=== PATIENT | male | born 1950 | race Caucasian/White ===

== ENCOUNTER 2023-05-14 14:55 | Outpatient (AMB) | payer MEDICARE, SELFPAY ==
--- NOTE | 2023-05-14 15:02 | MHC.OFFVIS ---
Intake Vital Signs 05/14/23 15:05 Height 5 ft 10 in Weight 161 lb 13.109 oz BMI 23.2 BP 128/74 Blood Pressure Location Rt brachial Position Sitting Pulse 91 Intake Visit Reasons: HX of adenomatous colonic polyps Intake Note: Patient presents to in office visit today as a new patient for colonoscopy screening. CC: Last colonoscopy on 07/03/22 at [facility] and he was advised to repeat in 6 months. Patient c/o constipation and rectal bleeding for the last 2 weeks. [employer] Required: No Accompanied by: Self / Same As Patient Allergies rosuvastatin [From Crestor] Allergy (Mild, Verified 05/14/23 15:20) Dizziness sulfacetamide [From Sulfacet-R] Allergy (Mild, Verified 05/14/23 15:20) coma sulfur [From Sulfacet-R] Allergy (Mild, Verified 05/14/23 15:20) coma HPI HX of adenomatous colonic polyps HPI Details 72-year-old male here for preprocedural meeting to discuss a screening colonoscopy in the context of a history of tubular adenoma. He is referred by [place] [facility] primary care. PMX Hypertension Generalized anxiety disorder/panic attacks/depression Insomnia Peripheral neuropathy Lower extremity edema Plantar fasciitis Tubular adenoma -2018 do Restless legs syndrome DJD of the lumbar spine/spondylolisthesis Raynaud's syndrome * THE SURGICAL HISTORY Colonoscopy-07/2022=30mm TVA; 2018 Tonsillectomy * ALLERGIES Sulfa drugs Statins * [employer] LABS: Labs from [facility] from July of 2022 show an unremarkable CBC, and unremarkable renal hepatic panel. The primary care provider did not supplement us with any recent labs. TODAY'S VISIT Upon entering the room the patient is pacing back and forth in agitation, panting, groaning, and seems to be in distress. I ask confuse all right and he says ?no, I have really blood plantar fasciitis and neuropathy and it is really painful right now. ? He also seems to have some element of emotional agitation as he immediately launches into how his son is going to be upset with him because he is in pain tonight, that he recently his and lost his health insurance, that he is losing his primary care doctor, and he is uncertain about his insurance coverage. He also seems to have some psychiatric problems and I note that he is on Seroquel with no diagnosis to explain this and I doubt that it is only for insomnia. It is somewhat difficult to refocus him on the task at hand which is that he needs a repeat colonoscopy due to a very large tubulovillous adenoma removed in July of 2022 at [facility]. 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 He does not like to take more pills saying ?I already have too many pills,? so I will try sending him some MiraLax. He denies any upper stomach problems. He denies any cardiac or respiratory problems. He denies any prior problems with anesthesia or sedation. No ID problems. [facility] Surgical History H/O colonoscopy Family History Maternal Grandmother Throat cancer Social History Patient Tobacco Use Status: Never used Tobacco Use of substances other than those prescribed or required for medical reasons: No Review of Systems Const Denies fatigue, Denies fever(s), Denies night sweats, Denies poor appetite and Denies weight loss ENT Reports Normal hearing present, Denies dental pain, Denies dysphagia, Denies hearing loss, Denies mouth pain, Denies odynophagia, Denies throat swelling, Denies tongue swelling and Reports other (Dentition poor) Card Reports no additional complaints Resp Reports no additional complaints GI Denies abdominal pain, Denies melena, Denies bloating, Denies hematochezia, Reports constipation, Denies GI cramping, Denies dysphagia, Denies excessive flatus, Denies early satiety, Denies heartburn, Denies diarrhea, Denies nausea, Denies odynophagia, Denies vomiting and Denies hematemesis Musc Reports back pain, Reports myalgias, Reports muscle cramps, Reports numbness, Reports radiating pain into limb and Reports tingling Skin/Breast Denies pruritus, Denies lesions, Denies rash and Denies jaundice Neuro Reports Normal hearing present, Denies Abnormal speech present, Reports burning sensations, Reports numbness, Reports restless legs and Reports tingling Psych Reports abnormal sleep pattern and Reports anxiety Endo Denies fatigue Aller/Immun Denies throat swelling and Denies tongue swelling Physical Exam Vital Signs: Last Vital Signs Pulse 91 05/14/23 15:05 BP 128/74 05/14/23 15:05 BMI result Body Mass Index 23.2 Const General: cooperative, no acute distress, well developed and anxious Nutritional Appearance: average body habitus and well nourished Orientation/consciousness: oriented to person, oriented to place and oriented to time Limitations: No language barrier and other limitations (? Psychiatric) HEENT Head: Yes normocephalic and Yes atraumatic Eyes General: appearance normal, both eyes and all related structures Pupils: Equal, round and reactive pupils present Neck Neck: Yes normal visual inspection and Yes no lymphadenopathy Thyroid: Thyroid normal Resp Effort & Inspection: normal respiratory effort and able to speak in complete sentences Auscultation: clear to auscultation bilaterally Cardio Rate: regular rate Rhythm: regular rhythm Heart sounds: Normal, physiologic split S2 sound present Peripheral pulses: radial pulses present and posterior tibial pulses present GI Inspection: No distended and No Abdominal panniculus present Palpation (GI): Soft to palpation, nontender, no guarding, not rigid and No hepatosplenomegaly present Percussion: Yes normal to percussion Auscultation: normal bowel sounds Rectal Exam - Male: Yes deferred Skin General skin exam: no rashes or lesions noted, turgor normal, skin not dry, no jaundice, No spider nevi and no striae Rashes: no rashes Nails: normal Neuro General: oriented to person, oriented to place and oriented to time Cranial nerves: Yes Equal, round and reactive pupils present and Yes Normal hearing present Speech: No Abnormal speech present Extrem General: Yes normal to inspection, No clubbing, No cyanosis and No edema Psych Appearance: disheveled Mental Status: other Speech and movement: Pressured speech present Affect: Anxious affect present Attitude: cooperative Thought process: Circumstantial thought process present, not confabulating, Tangential thought process present and Racing thoughts present Thought content: Normal thought content present Insight: Poor insight present (Psych) Judgement: Poor judgement present (Psych) Assessment & Plan Assessment & Plan (1) Tubulovillous adenoma: Comment: 30MM removed 06/2022 at [facility]!! Code(s): D36.9 - Benign neoplasm, unspecified site (2) Pre-op examination: Code(s): Z01.818 - Encounter for other preprocedural examination Plan Upon entering the room the patient is pacing back and forth in agitation, panting, groaning, and seems to be in distress. I ask confuse all right and he says ?no, I have really blood plantar fasciitis and neuropathy and it is really painful right now. ? He also seems to have some element of emotional agitation as he immediately launches into how his son is going to be upset with him because he is in pain tonight, that he recently his and lost his health insurance, that he is losing his primary care doctor, and he is uncertain about his insurance coverage. He also seems to have some psychiatric problems and I note that he is on Seroquel with no diagnosis to explain this and I doubt that it is only for insomnia. It is somewhat difficult to refocus him on the task at hand which is that he needs a repeat colonoscopy due to a very large tubulovillous adenoma removed in July of 2022 at [facility]. 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 He does not like to take more pills saying ?I already have too many pills,? so I will try sending him some MiraLax. He denies any upper stomach problems. He denies any cardiac or respiratory problems. He denies any prior problems with anesthesia or sedation. No ID problems. Orders: Orders Complete Blood Count Auto Diff Today D36.9 - Benign neoplasm, unspecified site, Z01.818 - Encounter for other preprocedural examination Comprehensive Met. Panel Today D36.9 - Benign neoplasm, unspecified site, Z01.818 - Encounter for other preprocedural examination Colonoscopy - GI Use Only Today D36.9 - Benign neoplasm, unspecified site, Z01.818 - Encounter for other preprocedural examination Medications: New sodium,potassium,mag sulfates 17.5-3.13-1.6 gram (Suprep Bowel Prep Kit) DILUTE; drink full amount early evening before AND next morning at least 2 hr before procedure; follow w 960 mL water PO 354 mL 0RF D36.9 - Benign neoplasm, unspecified site polyethylene glycol 3350 (Miralax) 17 grams PO DAILY 30 days 510 grams 6RF Coding Level of Care Code New Pt Level 3 (28451) Diagnoses Tubulovillous adenoma D36.9 Pre-op examination Z01.818
[2023-05-14 15:05] VITALS: BP 128/74; PULSE 91; BMI 23.2
== END 2023-05-14 16:21 | disposition home or self-care (01) ==
PROVIDERS: PCP Nurse Practitioner Family; Visit Provider Nurse Practitioner
DX: D36.9 Benign neoplasm, unspecified site (principal); Z01.818 Encounter for other preprocedural examination
CPT/HCPCS: 99203

== ENCOUNTER → 2023-05-14 14:55 | Outpatient (BNVA) | payer MEDICARE, SELFPAY | PROVIDERS: PCP Nurse Practitioner Family; Visit Provider Nurse Practitioner | DX: Z01.818 Encounter for other preprocedural examination (principal); D36.9 Benign neoplasm, unspecified site | CPT/HCPCS: 99202 ==

== ENCOUNTER 2023-06-05 17:58 | Emergency (ER) | payer MEDICARE, SELFPAY ==
--- NOTE | ~2023-06-05 | CT_ITS ---
EXAMINATION: CT HEAD WITHOUT CONTRAST CLINICAL INFORMATION: New onset dizziness with hypertension COMPARISON: None available. TECHNIQUE: Contiguous axial imaging was performed from the skull base to vertex without intravenous administration of contrast. This CT examination was performed using dose optimization techniques as appropriate, variously including the following: *Automated exposure control *Adjustment of mA and/or kV according to patient size (this includes techniques or standardized protocols for targeted exams where dose is matched to indication/reason for exam; i.e. extremities or head) *Use of iterative reconstruction technique DLP: 939 mGy-cm FINDINGS: Suboptimal assessment in some regions due to motion artifact. There is no appreciable acute intracranial hemorrhage or territorial infarction. No abnormal mass-effect or midline shift is seen. Chen to white matter differentiation is well preserved. No extra-axial fluid collections are identified. The ventricles are normal in size. Mild volume loss is noted. The osseous structures and soft tissues are normal. Mucosal thickening of the bilateral ethmoid air cells and left sphenoid sinus. The mastoid air cells are well-aerated. CT/CT head/brain wo IV con IMPRESSION: Suboptimal assessment in some regions due to motion artifact. No acute findings identified.
[2023-06-05 18:53] VITALS: BP 170/87; PULSE 77; RESP 18; TEMP 36.3; O2SAT 99; BMI 27.3
--- NOTE | 2023-06-05 18:54 | ED.GENADULT ---
HPI - General Adult General Chief complaint: Dizziness Stated complaint: abd pain ,dizziness Time Seen by Provider: 06/06/23 00:54 History of Present Illness HPI narrative: Patient is 72 years old with history of adenomatous colonic polyp, hypertension, anxiety had colonoscopy last year and a large polyp was removed today he comes for chronic right abdominal pain which is going on for more than 6 months also complaining of sudden onset of vertiginous feeling since 14:30 no chest pain or palpitation no other weakness Related Data Home Medications Medication Instructions Recorded Confirmed gabapentin 300 mg capsule 300 mg PO DAILY 05/14/23 quetiapine 100 mg tablet 100 mg PO BEDTIME 05/14/23 Previous Rx's Medication Instructions Recorded polyethylene glycol 3350 17 17 g PO DAILY 30 days #510 grams 05/14/23 gram/dose oral powder (Miralax) sodium,potassium,mag sulfates 17.5 See Rx Instructions PO .COMPLEX 05/14/23 gram-3.13 gram-1.6 gram oral soln #354 mL (Suprep Bowel Prep Kit) bisacodyl 5 mg tablet,delayed 20 mg (4 x 5 mg) PO ONCE 1 day #4 05/16/23 release (Dulcolax (bisacodyl)) tabs peg 3350-electrolytes 236 240 ml PO Q10M #4,000 mL 05/16/23 gram-22.74 gram-6.74 gram-5.86 gram solution lorazepam 1 mg tablet (Ativan) 1 mg PO DAILY PRN 06/06/23 anxiety/dizziness #14 tabs meclizine 25 mg tablet 25 mg PO TID PRN dizziness #20 tabs 06/06/23 Allergies Allergy/AdvReac Type Severity Reaction Status Date / Time rosuvastatin [From Crestor] Allergy Mild Dizziness Verified 06/05/23 18:57 sulfacetamide Allergy Mild coma Verified 06/05/23 18:57 [From Sulfacet-R] sulfur [From Sulfacet-R] Allergy Mild coma Verified 06/05/23 18:57 Review of Systems Review of Systems: Yes all other systems are reviewed and are negative PMF Past Medical History Surgical History H/O colonoscopy Family History Family History Maternal Grandmother Throat cancer Social History Social History Patient Tobacco Use Status: Never used Tobacco Smoked in Last 30 Days: No Use of substances other than those prescribed or required for medical reasons: No Advance Directives: No Advance Directives Information Provided: Yes Physical Exam ED Vital Signs: Vital Signs - 24 hr 06/05/23 18:53 06/05/23 22:31 06/06/23 01:56 Temperature 97.4 F 98.2 F 98.2 F Pulse Rate 77 82 73 Respiratory Rate 18 18 14 Blood Pressure 170/87 H 183/83 H 151/84 H Pulse Oximetry 99 98 99 Oxygen Delivery Method Room Air Room Air Room Air 06/06/23 02:53 Temperature 97.9 F Pulse Rate 77 Respiratory Rate 14 Blood Pressure 158/75 H Pulse Oximetry 98 Oxygen Delivery Method Room Air BMI result Body Mass Index 27.3 Appearance: Alert. Oriented X3. No acute distress. Eyes: PERRLA, No Nystagmus ENT: Pharynx normal. Oral Mucosa moist Neck: Normal inspection. Neck supple. CVS: Normal heart rate and rhythm. Pulses normal. Respiratory: No respiratory distress. Equal air entry bilateral, no wheezing/rales/rhonchi Abdomen: Soft mild deep tenderness mid abdomen Bowel sounds are present, no mass palpable, no CVA tenderness Skin: Skin warm and dry. Normal skin color. Normal skin turgor. Extremities: No lower extremity edema. No calf tenderness Neuro: Oriented X 3. No motor deficit. No sensory deficit.No cerebellar signs , cranial nerves II-XII intact no tremors Course Course Course Narrative: This is an RME: Additional HPI, ROS, PE not included below will be deferred to primary provider. This is a 62-[id number]-qsq-male, with a hx of anxiety, HTN, anxiety, RSL, DJD, prsenting to the ER with a complaint of RLQ pain, dizziness. He states dark stool several weeks ago. Reports that he has had tightness in his right abdomen often, worsening over the last day. Reports that he is being currently followed by [facility] due to a large polyp that had to be removed and he has a repeat colonoscopy in August. Abdomen is soft, no discrete tenderness. No urinary symptoms. Plan: Labs, further ER evaluation needed. Medications Administered Discontinued Medications Generic Name Dose Route Start Last Admin Trade Name Freq PRN Reason Stop Dose Admin Lorazepam 1 mg 06/06/23 02:34 06/06/23 02:52 Lorazepam 1 Mg Tablet PO 06/06/23 02:35 1 mg ONCE ONE Administration Meclizine HCl 50 mg 06/06/23 01:08 06/06/23 01:52 Meclizine Hcl 25 Mg Tablet PO 06/06/23 01:09 50 mg ONCE ONE Administration Medical Decision Making Medical Decision Making [facility] Narrative: Patient with benign positional vertigo increased anxiety no signs of central nervous system involvement CT scan of the head was done which was negative patient felt better after meclizine discharge patient home patient ambulatory in ER Differential Diagnosis Differential Diagnoses: The differential diagnosis associated with the presentation includes Benign positional vertigo/CVA/anxiety Admission/Observation Consideration of admission/observation: Escalation of care including admission/observation considered Lab Data [facility] Lab Attestation statement: I reviewed the patient's lab results. 06/05/23 19:12 06/05/23 19:12 Labs: Lab Results 06/05/23 06/05/23 Range/Units 19:12 20:24 WBC 11.4 H (4.8-10.8) X10*3/uL RBC 4.85 (4.60-5.80) X10*6/uL Hgb 15.5 (14.0-18.0) g/dl Hct 45.4 (42.0-52.0) % MCV 93.6 (80.0-98.0) fL MCH 32.0 (27.0-33.0) pg MCHC 34.1 (31.0-36.0) g/dl RDW 12.8 (11.0-16.0) % Plt Count 221 (160-400) X10*3/uL MPV 11.1 (9.4-12.4) fL Immature Gran % (Auto) 0.3 (0.0-0.4) % Neut % (Auto) 85.1 H (45-73) % Lymph % (Auto) 8.9 L (20-40) % Slope % (Auto) 4.1 (2-11) % Eos % (Auto) 1.1 (0-4) % Baso % (Auto) 0.5 (0-2) % Lymph # (Auto) 1.0 L (1.2-4.9) X10*3/uL Slope # (Auto) 0.5 (0.1-1.2) X10*3/uL Eos # (Auto) 0.1 (0.0-0.4) X10*3/uL Baso # (Auto) 0.1 (0.0-0.2) X10*3/uL Abs Immat Gran (auto) 0.03 (0.00-0.03) X10*3/uL Absolute Neuts (auto) 9.7 H (2.0-8.3) x10*3/uL Absolute Nucleated RBC 0.000 (0.0-0.012) X10*3/uL Nucleated RBC % (auto) 0.0 (0.0-0.2) /100WBC Sodium 140 (135-145) mmol/L Potassium 3.9 (3.3-5.1) mmol/L Chloride 106 (96-108) mmol/L Carbon Dioxide 27 (22-29) mmol/L Anion Gap 11 L (12-20) BUN 17 H (9-16) mg/dL Creatinine 1.08 (0.5-1.4) mg/dL Estim Creat Clear Calc 60.9 Estimated GFR > 60 Random Glucose 139 H (60-115) mg/dL Calcium 9.5 (8.4-10.2) mg/dL Magnesium 2.2 (1.6-2.6) mg/dL Total Bilirubin 1.0 (0.0-1.0) mg/dL Direct Bilirubin 0.4 (0.0-0.5) mg/dL AST 30 (5-37) U/L ALT 19 (0-40) U/L Alkaline Phosphatase 139 H (39-117) U/L Total Protein 7.0 (6.5-8.0) g/dL Albumin 4.1 (3.5-5.0) g/dL Lipase 16 (8-78) U/L Urine Color Yellow Urine Appearance Clear Urine pH 6.0 (5.0-9.0) Ur Specific [place] 1.015 (1.005-1.025) Urine Protein Negative (Neg-Trace) mg/dL Urine Glucose (UA) Negative (Negative) mg/dL Urine Ketones Negative (Negative) mg/dL Urine Blood Trace (Negative) Urine Nitrite Negative (Negative) Ur Leukocyte Esterase Negative (Negative) Urine RBC 0-2 (0-2) /HPF Urine WBC 0-5 (0-5) /HPF Ur Squamous Epith Cells 0-2 (0-2) /HPF Urine Bacteria None Seen (None Seen) Hyaline Casts 0-2 (0-2) /LPF Independent Interpretation I performed an independent interpretation of an: CT Scan Radiology Impression Discussion of test interpretation with radiology: I have reviewed the radiologist's reading. Discharge Plan Discharge Clinical Impression: Benign paroxysmal positional vertigo, Anxiety Patient Disposition: Home, Self-Care Instructions: Benign Paroxysmal Positional Vertigo (ED), Anxiety (ED) Additional Instructions: Care and cautions as advised Meclizine 1 tablet every 8 hours as needed for severe dizziness Take Ativan 1 mg tablet in a.m. to help in anxiety and dizziness Prescriptions: New lorazepam [Ativan] 1 mg tablet 1 mg PO DAILY PRN (Reason: anxiety/dizziness) Qty: 14 0RF meclizine 25 mg tablet 25 mg PO TID PRN (Reason: dizziness) Qty: 20 0RF No Action bisacodyl [Dulcolax (bisacodyl)] 5 mg tablet,delayed release (DR/EC) 20 mg PO ONCE 1 Days Qty: 4 0RF Rx Instructions: take at noon the day before colonoscopy peg 3350-electrolytes 236-22.74-6.74 -5.86 gram recon soln 240 ml PO Q10M Qty: 4000 0RF Rx Instructions: Refer to prep instructions given/ mailed to you from GI OFFICE. until fecal effluent is clear quetiapine 100 mg tablet 100 mg PO BEDTIME gabapentin 300 mg capsule 300 mg PO DAILY sodium,potassium,mag sulfates [Suprep Bowel Prep Kit] 17.5-3.13-1.6 gram recon soln See Rx Instructions PO .COMPLEX Qty: 354 0RF Rx Instructions: DILUTE; drink full amount early evening before AND next morning at least 2 hr before procedure; follow w 960 mL water PO polyethylene glycol 3350 [Miralax] 17 gram/dose powder 17 g PO DAILY 30 Days Qty: 510 6RF Interventions: ED Discharge Assessment Last Done: 06/06/23 02:57 Discharge Date/Time: 06/06/23 02:57
[2023-06-05 19:15] LABS: MANUAL DIFF FLAG NO
[2023-06-05 19:17] LABS: Basophils Absolute Auto 0.1 X10*3/uL (0.0-0.2); Basophils Percent Auto 0.5 % (0-2); Eosinophils Absolute Auto 0.1 X10*3/uL (0.0-0.4); Eosinophils Percent Auto 1.1 % (0-4); Hematocrit 45.4 % (42.0-52.0); Hemoglobin 15.5 g/dl (14.0-18.0); Imm Gran Abs Auto 0.03 X10*3/uL (0.00-0.03); Imm Gran Pct Auto 0.3 % (0.0-0.4); Lymphocytes Percent Auto 8.9 % (20-40); Mean Corpuscular HGB Conc 34.1 g/dl (31.0-36.0); Mean Corpuscular Volume 93.6 fL (80.0-98.0); Mean Platelet Volume 11.1 fL (9.4-12.4); Monocytes Absolute Auto 0.5 X10*3/uL (0.1-1.2); Monocytes Percent Auto 4.1 % (2-11); Neutrophils Absolute Auto 9.7 x10*3/uL (2.0-8.3); Neutrophils Percent Auto 85.1 % (45-73); Platelet Count 221 X10*3/uL (160-400); Red Blood Count 4.85 X10*6/uL (4.60-5.80); Red Cell Distribution Width 12.8 % (11.0-16.0); White Blood Count 11.4 X10*3/uL (4.8-10.8)
[2023-06-05 20:08] LABS: Alanine Aminotransferase 19 U/L (0-40); Albumin Level 4.1 g/dL (3.5-5.0); Alkaline Phosphatase 139 U/L (39-117); Anion Gap 11 (12-20); Bilirubin Direct 0.4 mg/dL (0.0-0.5); Blood Urea Nitrogen 17 mg/dL (9-16); Calcium 9.5 mg/dL (8.4-10.2); Carbon Dioxide 27 mmol/L (22-29); Chloride 106 mmol/L (96-108); Creatinine Clr Calc Pharmacy 60.9; Estimated Glomerular Filt Rate > 60; Glucose Random 139 mg/dL (60-115); Lipase 16 U/L (8-78); Magnesium 2.2 mg/dL (1.6-2.6); Potassium 3.9 mmol/L (3.3-5.1); Sodium 140 mmol/L (135-145)
[2023-06-05 20:23] LABS: Aspartate Amino Transferase 30 U/L (5-37)
[2023-06-05 20:30] LABS: Appearance Urine Clear; Color Urine Yellow; Glucose Urine UA Negative (Negative); Leukocyte Esterase Urine Negative (Negative); Nitrite Urine Negative (Negative); Specific Gravity - Urine 1.015 (1.005-1.025); UMIC TRIGGER UACC YES; Urine Blood Trace (Negative); Urine Ketones Negative (Negative); Urine Protein Negative (Neg-Trace)
[2023-06-05 20:36] LABS: Bacteria Urine None Seen (None Seen); Hyaline Casts Urine 0-2 /LPF (0-2); RBC Urine 0-2 /HPF (0-2); Squamous Epithelial Cell Urine 0-2 /HPF (0-2); WBC Urine 0-5 /HPF (0-5)
[2023-06-05 22:31] VITALS: BP 183/83; PULSE 82; RESP 18; TEMP 36.8; O2SAT 98
[2023-06-06] MEDS: Meclizine HCl 25 MG TABLET 50 MG PO (01:52)
[2023-06-06 01:56] VITALS: BP 151/84; PULSE 73; RESP 14; TEMP 36.8; O2SAT 99
[2023-06-06] MEDS: LORazepam 1 MG TABLET PO (02:52)
[2023-06-06 02:53] VITALS: BP 158/75; PULSE 77; RESP 14; TEMP 36.6; O2SAT 98
== END 2023-06-06 02:57 | disposition home or self-care (01) ==
PROVIDERS: Physician Assistant Medical; Emergency Provider Internal Medicine; PCP Nurse Practitioner Family
DX: H81.10 Benign paroxysmal vertigo, unspecified ear (principal); F41.9 Anxiety disorder, unspecified; I10 Essential (primary) hypertension; Z79.899 Other long term (current) drug therapy
CPT/HCPCS: 36415; 70450; 80048; 80076; 81001; 83690; 83735; 85025; 99284

== ENCOUNTER 2023-07-26 22:46 | Inpatient (IN) | payer MEDICARE, OTHER, SELFPAY ==
--- NOTE | ~2023-07-26 | XR_ITS ---
EXAMINATION: XR ABDOMEN KUB CLINICAL INDICATION: Constipation COMPARISON: None available. TECHNIQUE: AP view of the abdomen. FINDINGS: The bowel gas pattern is normal with no evidence of ileus or obstruction. Mild to moderate gas and stool is seen in the colon without moderate amount left colon and in the rectum. No bowel obstruction. No unusual soft tissue calcifications are noted. Marked degenerative changes are present in the spine. XR/XR KUB IMPRESSION: Mild to moderate stool burden. No evidence of bowel obstruction.
--- NOTE | 2023-07-26 23:00 | ED.PSYCH ---
HPI - Psych General Stated Complaint: SI Time Seen by Provider: 07/26/23 22:51 Source: EMS Mode of arrival: EMS Limitations: other (Severe anxiety) History of Present Illness HPI Narrative: Patient comes to the emergency room via ambulance and on a Section 12 started by police department. According to EMS and police, the PD received a phone call from the patient's son. Seems that the patient has been extremely anxious, making random phone calls to the family, leaving 5 minute long messages without making any sense. Patient has 2 sons, one son lives in [place] and another one in this area. Patient's son from [place] all his brother to discuss their father. Patient lives by himself. Patient's son who lives locally went to see his father, patient was extremely anxious, not making much sense. An ambulance and PD was called. Patient very anxious, not making much sense. According to the sons, they have noted that the patient has declined mentally over last month. Related Data Home Medications Medication Instructions Recorded Confirmed gabapentin 300 mg capsule 300 mg PO DAILY 05/14/23 quetiapine 100 mg tablet 100 mg PO BEDTIME 05/14/23 Previous Rx's Medication Instructions Recorded polyethylene glycol 3350 17 17 g PO DAILY 30 days #510 grams 05/14/23 gram/dose oral powder (Miralax) sodium,potassium,mag sulfates 17.5 See Rx Instructions PO .COMPLEX 05/14/23 gram-3.13 gram-1.6 gram oral soln #354 mL (Suprep Bowel Prep Kit) bisacodyl 5 mg tablet,delayed 20 mg (4 x 5 mg) PO ONCE 1 day #4 05/16/23 release (Dulcolax (bisacodyl)) tabs peg 3350-electrolytes 236 240 ml PO Q10M #4,000 mL 05/16/23 gram-22.74 gram-6.74 gram-5.86 gram solution lorazepam 1 mg tablet (Ativan) 1 mg PO DAILY PRN 06/06/23 anxiety/dizziness #14 tabs meclizine 25 mg tablet 25 mg PO TID PRN dizziness #20 tabs 06/06/23 Allergies Allergy/AdvReac Type Severity Reaction Status Date / Time rosuvastatin [From Crestor] Allergy Mild Dizziness Verified 06/05/23 18:57 sulfacetamide Allergy Mild coma Verified 06/05/23 18:57 [From Sulfacet-R] sulfur [From Sulfacet-R] Allergy Mild coma Verified 06/05/23 18:57 Review of Systems Review of Systems: Too anxious to give any significant history PMFSH Past Medical History Surgical History H/O colonoscopy Family History Family History Maternal Grandmother Throat cancer Social History Social History Patient Tobacco Use Status: Never used Tobacco Physical Exam Const: Other: Appearance: Alert. Very anxious, not answering questions, yelling that he is concerned about staying in the hospital because we want find out what his blood pressure medications are. Eyes: Pupils equal, round and reactive to light. ENT: Pharynx normal. Neck: Normal inspection. Neck supple. No lymph nodes noted. No crepitus CVS: Normal heart rate and rhythm. Pulses normal. Normal S1 and S2 Respiratory: No respiratory distress. Breath sounds normal. No Wheezing. No rales Abdomen: Soft and nontender. No rigidity. No distention. Skin: Skin warm and dry. Normal skin color. Normal skin turgor. Extremities: No lower extremity edema. No Lacerations. No Rash Neuro: No slurred speech. CN 2 through 12 grossly intact Psych: Chen anxious, sobbing loudly Course Course Course Narrative: -patient is too anxious to give any history. Patient was given the option of taking p.o. medications to help with the anxiety. Patient states that he can not swallow, states that he is agreeable to take an IM medication. Patient will be given IM Benadryl and Ativan. -all of patient's labs pending -care team consult pending Medical Decision Making Differential Diagnosis Differential Diagnoses: The differential diagnosis associated with the presentation includes (Anxiety, dementia, substance abuse) Admission/Observation Consideration of admission/observation: Escalation of care including admission/observation considered (Patient is on a Section 12, waiting for the care team to be evaluated) Discharge Plan Discharge Clinical Impression: Anxiety Prescriptions: No Action bisacodyl [Dulcolax (bisacodyl)] 5 mg tablet,delayed release (DR/EC) 20 mg PO ONCE 1 Days Qty: 4 0RF Rx Instructions: take at noon the day before colonoscopy peg 3350-electrolytes 236-22.74-6.74 -5.86 gram recon soln 240 ml PO Q10M Qty: 4000 0RF Rx Instructions: Refer to prep instructions given/ mailed to you from GI OFFICE. until fecal effluent is clear lorazepam [Ativan] 1 mg tablet 1 mg PO DAILY PRN (Reason: anxiety/dizziness) Qty: 14 0RF meclizine 25 mg tablet 25 mg PO TID PRN (Reason: dizziness) Qty: 20 0RF quetiapine 100 mg tablet 100 mg PO BEDTIME gabapentin 300 mg capsule 300 mg PO DAILY sodium,potassium,mag sulfates [Suprep Bowel Prep Kit] 17.5-3.13-1.6 gram recon soln See Rx Instructions PO .COMPLEX Qty: 354 0RF Rx Instructions: DILUTE; drink full amount early evening before AND next morning at least 2 hr before procedure; follow w 960 mL water PO polyethylene glycol 3350 [Miralax] 17 gram/dose powder 17 g PO DAILY 30 Days Qty: 510 6RF
[2023-07-26 23:05] VITALS: BP 163/92; PULSE 105; RESP 18; O2SAT 98
[2023-07-26] MEDS: diphenhydrAMINE HCL 50 MG/ML VIAL IM (23:05)
[2023-07-26] MEDS: LORazepam 2 MG/ML VIAL IM (23:05)
[2023-07-26 23:16] VITALS: BMI 28.2
--- NOTE | 2023-07-26 23:41 | PC.NURSE ---
Pt is very anxious and tearful. Reports being unable to swallow. Medicated IM as pt is anxious and did not want to take PO medications.
--- NOTE | 2023-07-26 23:43 | PC.NURSE ---
Called received from Jorge Urban who identified himself as pts health care proxy. 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 Jorge reports pts paranoid tendencies have worsen throughout the last 8 months where pt has had multiple hospital stays with [facility] and [facility]. Jorge reports pt was living with a son who has moved out of the home 2 to 3 days ago and pts condition has worsen as pt is now living alone. Jorge reports pts home is disheveled and pt is unable to care for himself regarding ADL's. Jorge can be reached at [phone]
[2023-07-26 23:48] LABS: MANUAL DIFF FLAG NO
[2023-07-26 23:51] LABS: Basophils Absolute Auto 0.1 X10*3/uL (0.0-0.2); Basophils Percent Auto 0.7 % (0-2); Eosinophils Absolute Auto 0.1 X10*3/uL (0.0-0.4); Eosinophils Percent Auto 0.9 % (0-4); Hematocrit 39.9 % (42.0-52.0); Hemoglobin 14.1 g/dl (14.0-18.0); Imm Gran Abs Auto 0.02 X10*3/uL (0.00-0.03); Imm Gran Pct Auto 0.2 % (0.0-0.4); Lymphocytes Percent Auto 17.5 % (20-40); Mean Corpuscular HGB Conc 35.3 g/dl (31.0-36.0); Mean Corpuscular Hemoglobin 32.3 pg (27.0-33.0); Mean Corpuscular Volume 91.3 fL (80.0-98.0); Mean Platelet Volume 11.2 fL (9.4-12.4); Monocytes Absolute Auto 1.2 X10*3/uL (0.1-1.2); Monocytes Percent Auto 10.6 % (2-11); Neutrophils Absolute Auto 7.9 x10*3/uL (2.0-8.3); Neutrophils Percent Auto 70.1 % (45-73); Platelet Count 235 X10*3/uL (160-400); Red Blood Count 4.37 X10*6/uL (4.60-5.80); Red Cell Distribution Width 12.8 % (11.0-16.0); White Blood Count 11.3 X10*3/uL (4.8-10.8)
[2023-07-27] LABS: Ammonia 34 umol/L (13-55)
[2023-07-27 00:11] LABS: Alanine Aminotransferase 39 U/L (0-40); Albumin Level 3.7 g/dL (3.5-5.0); Alkaline Phosphatase 98 U/L (39-117); Anion Gap 16 (12-20); Aspartate Amino Transferase 38 U/L (5-37); Bilirubin Direct 0.5 mg/dL (0.0-0.5); Bilirubin Total 1.2 mg/dL (0.0-1.0); Blood Urea Nitrogen 22 mg/dL (9-16); Calcium 9.1 mg/dL (8.4-10.2); Carbon Dioxide 23 mmol/L (22-29); Chloride 106 mmol/L (96-108); Creatinine Clr Calc Pharmacy 41.2; Estimated Glomerular Filt Rate 43; Ethanol < 10 mg/dL; Glucose Random 105 mg/dL (60-115); Potassium 3.2 mmol/L (3.3-5.1); Sodium 142 mmol/L (135-145); Total Protein 6.3 g/dL (6.5-8.0)
[2023-07-27 00:24] LABS: Acetaminophen LAB < 3 mcg/mL (<30); Salicylate < 5.0 mg/dL (15-30)
[2023-07-27 04:42] LABS: Appearance Urine Clear; Color Urine Dark Yellow; Glucose Urine UA Negative (Negative); Leukocyte Esterase Urine Negative (Negative); Nitrite Urine Negative (Negative); PH 5.5 (5.0-9.0); Specific Gravity - Urine 1.025 (1.005-1.025); UMIC TRIGGER UACC YES; Urine Blood Trace (Negative); Urine Ketones 15 mg/dL (Negative); Urine Protein 30 (1+) mg/dL (Neg-Trace)
--- NOTE | 2023-07-27 04:43 | PC.NURSE ---
Pt up and ambulating to the bathroom. Pt noted to have an unsteady gait requiring 1 assist to the bathroom. Pt denies using any assisting devices for ambulation. Charge nurse made aware.
[2023-07-27 04:50] LABS: Amphetamine Screen Urine Not Detected (Not Detect); Barbiturates, Urine Not Detected (Not Detect); Benzodiazepines Screen Urine Not Detected (Not Detect); Cannabinoid Screen Urine Not Detected (Not Detect); Cocaine Screen Urine Not Detected (Not Detect); Fentanyl, urine Not Detected (Not Detect); Opiate Screen Urine Not Detected (Not Detect); Phencyclidine Screen Urine Not Detected (Not Detect)
[2023-07-27 04:51] LABS: Bacteria Urine None Seen (None Seen); Calcium Oxalate Crystals Urine Present; RBC Urine 0-2 /HPF (0-2); Squamous Epithelial Cell Urine 0-2 /HPF (0-2); WBC Urine 0-5 /HPF (0-5)
--- NOTE | 2023-07-27 07:35 | PC.NURSE ---
PT IS SLEEPING RESP EVEN AND UNLABORED.
[2023-07-27 07:47] VITALS: RESP 16
--- NOTE | 2023-07-27 08:05 | PC.NURSE ---
PT'S SON JONATHAN CAME TO VISIT, BUT THE PT WAS SLEEPING SO HE LEFT STATING HE DOESN'T SLEEP THAT MUCH, SO I WILL LET HIM SLEEP. JUST LET HIM KNOW THAT I WAS HERE . WILL CONTINUE TO MONITOR.
--- NOTE | 2023-07-27 10:09 | PC.NURSE ---
PT CONTINUES TO SLEEP RESP EVEN AND UNLABORED.
--- NOTE | 2023-07-27 10:25 | PC.NURSE ---
CARE TEAM AT BEDSIDE, PT AWARE OF PLAN OF CARE.
[2023-07-27 10:40] VITALS: BP 113/56; PULSE 54; RESP 18; TEMP 36.2; O2SAT 97
--- NOTE | 2023-07-27 10:40 | PC.NURSE ---
PT IS A/O X 4 NO SOB/DESIRAE NOTED SPEAKS IN FULL SENTENCES. PT DENIES ANY PAIN, BUT C/O KIMBERLYN FEET DISC. PT STATES THAT HE HAS NEUROPATHY AND PLANTAR FASCIITIS. PT DENIES ANY SI/HI. PT AWARE OF PLAN OF CARE. WILL CONTINUE TO MONITOR.
[2023-07-27] MEDS: Potassium Chloride Packet 20 MEQ PACKET 40 MEQ PO (10:44)
[2023-07-27] MEDS: Gabapentin 300 MG CAPSULE PO (10:45)
[2023-07-27] MEDS: hydrOXYzine HCL 25 MG TABLET PO ×3 (10:45→22:05)
--- NOTE | 2023-07-27 11:05 | ECG_ITS ---
Test Reason : CHECK PROLONG QT Blood Pressure : / mmHG Vent. Rate : 056 BPM Atrial Rate : 056 BPM P-R Int : 142 ms QRS Dur : 090 ms QT Int : 450 ms P-R-T Axes : 042 -09 035 degrees QTc Int : 434 ms Sinus bradycardia Otherwise normal ECG No previous ECGs available Referred By: Chela Horn Electronically Signed By:VAIBHAV CHRISTENSEN
--- NOTE | 2023-07-27 13:32 | PC.NURSE ---
PT AMB (I) GAIT STEADY WITH 1 ASSIST TO BATHROOM AND BTB. PT DENIES ANY PAIN/DISC.
[2023-07-27] MEDS: cloNIDine HCL 0.2 MG TABLET PO (17:29)
--- NOTE | 2023-07-27 19:36 | PC.NURSE ---
assumed care @ 1900 pt calmly resting at this time. RR 17
[2023-07-27] MEDS: QUEtiapine Fumarate 100 MG TABLET PO (22:05)
[2023-07-27 22:13] VITALS: BP 114/60; PULSE 59; RESP 17; TEMP 36.4; O2SAT 98
--- NOTE | 2023-07-27 22:31 | PC.NURSE ---
rloy Roche number [phone]
--- NOTE | 2023-07-27 23:32 | PC.NURSE ---
pt is requesting IM Benadryl and Ativan to which he received last night for his anxiety. Pt reports he cannot have pills at this time due to him having difficulty swallowing. Pt is talking in complete sentences and airway patent at this time, Pt appears to be highly anxious at this time . Provider made aware of patient request
[2023-07-28 06:19] VITALS: BP 158/72; PULSE 65; TEMP 36.4; O2SAT 98
[2023-07-28] MEDS: Gabapentin 300 MG CAPSULE PO (07:46)
[2023-07-28] MEDS: cloNIDine HCL 0.2 MG TABLET PO ×2 (07:46→15:53)
[2023-07-28] MEDS: hydrOXYzine HCL 25 MG TABLET PO ×2 (07:47→21:26)
--- NOTE | 2023-07-28 09:01 | PC.NURSE ---
Assumed care at 0700. Pt in room eating breakfast. PRN med given as documented per pt's request for anxiety. Pt in room resting quietly at this time, no apparent distress. Denies pain.
[2023-07-28 09:33] LABS: COVID-19 Test Negative (Negative); IDNOW Serial# 08D9AD1C
--- NOTE | 2023-07-28 11:35 | MHC.EDTECH ---
Patient sleeping at this time, will attempt labs when patient awake and oriented.
[2023-07-28 12:58] LABS: Alanine Aminotransferase 32 U/L (0-40); Albumin Level 3.4 g/dL (3.5-5.0); Alkaline Phosphatase 100 U/L (39-117); Anion Gap 13 (12-20); Aspartate Amino Transferase 27 U/L (5-37); Bilirubin Total 0.6 mg/dL (0.0-1.0); Blood Urea Nitrogen 23 mg/dL (9-16); Calcium 8.9 mg/dL (8.4-10.2); Carbon Dioxide 28 mmol/L (22-29); Chloride 106 mmol/L (96-108); Creatinine Clr Calc Pharmacy 56.6; Estimated Glomerular Filt Rate > 60; Glucose Random 116 mg/dL (60-115); Potassium 3.6 mmol/L (3.3-5.1); Sodium 143 mmol/L (135-145); Total Protein 6.1 g/dL (6.5-8.0)
[2023-07-28 14:12] LABS: Estimated Average Glucose 103 mg/dL; Hemoglobin A1c % 5.2 % (<6.0)
[2023-07-28 14:35] LABS: Thyroid Stimulating Hormone 0.94 uIU/mL (0.32-4.0)
[2023-07-28 14:37] VITALS: BP 132/79; PULSE 78; RESP 16; TEMP 36.3; O2SAT 100
[2023-07-28 14:40] LABS: Vitamin B12 1183 pg/mL (200-900)
[2023-07-28 14:58] VITALS: BMI 23.6
--- NOTE | 2023-07-28 16:15 | PC.ADMIT ---
Patient arrived on unit at 1420 via WC from [facility] [place] [facility] with diagnosis of generalized anxiety disorder and unspecified depressive disorder. Patient dressed in hospital attire. Appears slightly disheveled. Signed CV in ED. Alert and oriented x4. VSS. Patient weighed, skin check done. Rash to R shoulder noted. Patient has had recent life stressors including divorce, breakup with girlfriend, recent long-term and disengagement from christianity. Patient reports sleep and appetite disturbance. Denies SI/HI/VH. BRYANT's signed. Limted participation in admission process. Perseverating on foot pain. Seen by neuro and vascular with no findings. Seen by OT and had walker provided. Placed on 5 minute checks per protocol. Able to contract for safety.
[2023-07-28 18:00] VITALS: BP 128/67; PULSE 96; RESP 18; TEMP 36.3; O2SAT 96
[2023-07-28] MEDS: QUEtiapine Fumarate 100 MG TABLET PO (21:17)
[2023-07-28] MEDS: traZODone HCL 50 MG TABLET PO (22:27)
[2023-07-29] MEDS: Acetaminophen 325 MG TABLET 650 MG PO ×2 (06:24→20:44)
[2023-07-29 07:59] LABS: Alanine Aminotransferase 29 U/L (0-40); Albumin Level 3.1 g/dL (3.5-5.0); Alkaline Phosphatase 89 U/L (39-117); Anion Gap 11 (12-20); Aspartate Amino Transferase 23 U/L (5-37); Bilirubin Total 0.5 mg/dL (0.0-1.0); Blood Urea Nitrogen 20 mg/dL (9-16); Carbon Dioxide 27 mmol/L (22-29); Chloride 108 mmol/L (96-108); Cholesterol 126 mg/dL (<200); Creatinine Clr Calc Pharmacy 66.7; Estimated Glomerular Filt Rate > 60; Glucose Fasting 100 mg/dL (60-99); HDL Cholesterol 40 mg/dL (>40); LDL Cholesterol Calculated 73 mg/dL (<100); Potassium 3.4 mmol/L (3.3-5.1); Sodium 143 mmol/L (135-145); Total Protein 5.3 g/dL (6.5-8.0); Triglycerides 66 mg/dL (<150)
--- NOTE | 2023-07-29 08:38 | HO.PSYADMNOT ---
HPI Date of Service: 07/29/23 Chief Complaint: Psychosis Sources of Information: patient interviewed, chart reviewed and crisis/core team assessment reviewed HPI Subjective Notes: Quijano Warning (given and shows understanding) and Conditional Voluntary Narrative: Mr. Zhou is a 72 year-old male with hx of MDD, anxiety disorder who was brought via EMS on sect 12a by police after son contacted [employer] police due to pt telling his son that he was going to end his life. In the ED, pt disclosed multiple stressors including worsening of physical health (neuropathic pain, RLS, plantar fasciitis), financial stress, lack of supports at home after divorce 2 years ago of of 42 years. Utox was negative. On the unit, pt reports feeling restless, ongoing sense of anxiety which he reports has been going on for about one year. He reports pain when ambulating. He also reports feeling very overwhelmed with financial situation after divorce including the fact that he lost health insurance. He denies hx of VH/AH. He reports feeling very hopeless and helpless. He reports he called his son to tell him that he can't keep going on as he is. He states he feels frustrated, terribly anxious Past Psychiatric History: Inpt: one prior last year at [facility] OP: none at the moment Past medication trials: lexapro (restless), seroquel (helps with sleep, although concern in terms of worsening RLS), clonidine, hydroxyzine Medical Evaluation Reviewed: Yes PMFSH Surgical History H/O colonoscopy Family History: denies Social History: after 42 years of marriage. He has 2 sons. currently not working. Substance History: denies Trauma History: not disclosed Diagnostics Vital Signs (24Hr): Vital Signs - 24 hr 07/28/23 14:37 07/28/23 18:00 Temperature 97.4 F 97.4 F Pulse Rate 78 96 Respiratory Rate 16 18 Blood Pressure 132/79 128/67 Pulse Oximetry 100 96 Oxygen Delivery Method Room Air Room Air BMI result Body Mass Index 23.6 Labs 07/26/23 23:41 07/29/23 07:17 Labs: Laboratory Results - last 48 hr 07/26/23 07/28/23 07/28/23 23:41 09:06 12:09 Hold Purple Top Sodium 143 Potassium 3.6 Chloride 106 Carbon Dioxide 28 Anion Gap 13 BUN 23 H Creatinine 1.15 Estim Creat Clear Calc 56.6 Estimated GFR > 60 Random Glucose 116 H Fasting Glucose Estimat Average Glucose 103 Hemoglobin A1c % 5.2 Calcium 8.9 Total Bilirubin 0.6 AST 27 ALT 32 Alkaline Phosphatase 100 Total Protein 6.1 L Albumin 3.4 L Triglycerides Cholesterol LDL Cholesterol, Calc HDL Cholesterol Vitamin B12 1183 H TSH 0.94 COVID-19 (RAD) Negative COVID-19 Clin Com See Note 07/29/23 07:17 Hold Purple Top SEE NOTE Sodium 143 Potassium 3.4 Chloride 108 Carbon Dioxide 27 Anion Gap 11 L BUN 20 H Creatinine 0.89 Estim Creat Clear Calc 66.7 Estimated GFR > 60 Random Glucose Fasting Glucose 100 H Estimat Average Glucose Hemoglobin A1c % Calcium 9.0 Total Bilirubin 0.5 AST 23 ALT 29 Alkaline Phosphatase 89 Total Protein 5.3 L Albumin 3.1 L Triglycerides 66 Cholesterol 126 LDL Cholesterol, Calc 73 HDL Cholesterol 40 L Vitamin B12 TSH COVID-19 (RAD) COVID-19 Clin Com Meds/Allergies Meds Home Medications Medication Instructions Recorded Confirmed Type gabapentin 300 mg capsule 300 mg PO DAILY 05/14/23 07/27/23 History quetiapine 100 mg tablet 100 mg PO BEDTIME 05/14/23 07/27/23 History clonidine HCl 0.2 mg tablet 0.2 mg PO BID PRN Anxiety 07/27/23 07/27/23 History gabapentin 100 mg capsule 100 mg PO BEDTIME Sleep 07/27/23 07/27/23 History hydroxyzine HCl 25 mg tablet 25 mg PO TID 07/27/23 07/27/23 History quetiapine 25 mg tablet 25 mg PO BID PRN anxiety 07/27/23 07/27/23 History Allergies Allergies Allergy/AdvReac Type Severity Reaction Status Date / Time rosuvastatin [From Crestor] Allergy Mild Dizziness Verified 07/26/23 23:40 sulfacetamide Allergy Mild coma Verified 07/26/23 23:40 [From Sulfacet-R] sulfur [From Sulfacet-R] Allergy Mild coma Verified 07/26/23 23:40 Mental Status Exam Mental Status Exam Narrative: Appearance: wearing hospital gown, fair hygiene, in NAD Behavior: initially guarded, mildly irritable Psychomotor: some tapping feet Speech: clear, normal rate/rhythm/volume, spontaneous TP: linear TC: preoccupied with pain, stressors, feeling very hopeless, helpless Mood: frustrated, terribly anxious Affect: irritable, guarded SI: passive HI: none VH/AH: none Delusions: none Insight/judgment: fair x 2. Memory/cog: alert, oriented x 3. pending formal assessement. Assessment & Plan Assessment & Plan (1) MDD (major depressive disorder), recurrent episode, moderate: Status: Acute Code(s): F33.1 - Major depressive disorder, recurrent, moderate (2) Generalized anxiety disorder: Status: Acute Code(s): F41.1 - Generalized anxiety disorder Plan Mr. Zhou is a 72 year-old male with hx of MDD, feeling of restless which I do suspect may be related to his dx of RLS. He also presents as hopeless and helpless due to multiple stressors including financial, not having as much assistance after divorce and worsening of physical health. We discussed risks, benefits and alternative treatment options. He agreed to stop seroquel as it may be worsening RLS. Try instead clonazepam at bedtime. Once sense of restlessness more undercontrol then will add antidepressant but will suggest either cymbalta or effexor. PLAN 1. Admit to S1, CV, 15 minutes checks for safety 2. d/c seroquel. clonazepam 1mg po qhs. clonazepam 0.5mg po daily. Monitor oversedation, and gait. will plan to do trial of effexor for depression. 3. obtain collateral information 4. aftercare planning. Patient educated on: diagnosis Reason for continued inpatient stay Substantial Risk for: inability to function Statement Statement: I have reviewed the history and physical and performed a pertinent examination on my patient. No changes have occurred unless specified. If the History and Physical was not performed prior to admission, the Hospitalist's service will be consulted for completing the admission physical. Time Spent With Patient Time: Total time managing care of this patient today ____ minutes.
[2023-07-29 08:55] VITALS: BP 167/83; PULSE 60; RESP 20; TEMP 36.3; O2SAT 98
[2023-07-29] MEDS: cloNIDine HCL 0.2 MG TABLET PO (08:58)
[2023-07-29 14:41] VITALS: BP 161/74; PULSE 73; O2SAT 98
[2023-07-29] MEDS: Propranolol HCL 10 MG TABLET PO (14:43)
[2023-07-29] MEDS: Gabapentin 300 MG CAPSULE PO (15:29)
[2023-07-29] MEDS: clonazePAM 0.5 MG TABLET PO (16:33)
[2023-07-29 18:00] VITALS: BP 164/81; PULSE 65; RESP 18; TEMP 36; O2SAT 99
[2023-07-29] MEDS: clonazePAM 1 MG TABLET PO (20:42)
[2023-07-29] MEDS: QUEtiapine Fumarate 100 MG TABLET PO (20:49)
[2023-07-30 09:20] VITALS: BP 145/64; PULSE 68; RESP 17; TEMP 36.1; O2SAT 97
[2023-07-30] MEDS: clonazePAM 0.5 MG TABLET PO (09:25)
[2023-07-30] MEDS: cloNIDine HCL 0.1 MG TABLET PO (13:52)
[2023-07-30] MEDS: Propranolol HCL 10 MG TABLET PO (17:32)
[2023-07-30 18:00] VITALS: BP 172/90; PULSE 76; RESP 18; TEMP 36.4; O2SAT 98
--- NOTE | 2023-07-30 19:47 | P.PNPSI_ITS ---
Subjective Subjective Date of Service: 07/30/23 Reason For Visit: Psychosis Subjective Notes: Conditional Voluntary Interim History: Pt presents as anxious, repetitive. He states he needs to stay in bed and is preoccupied with being forced to get out of bed. He reports he is sleeping better. He reports he is not able to function. He denies plan or intent to harm himself but feels very hopeless and helpless. Review of Systems Review of Systems Too anxious to give any significant history Mental Status Exam Mental Status Exam Narrative: Appearance: wearing hospital gown, fair hygiene, in NAD Behavior: initially guarded, mildly irritable Psychomotor: some tapping feet Speech: clear, normal rate/rhythm/volume, spontaneous TP: linear TC: preoccupied with pain, stressors, feeling very hopeless, helpless Mood: frustrated, terribly anxious Affect: irritable, guarded SI: passive HI: none VH/AH: none Delusions: none Insight/judgment: fair x 2. Memory/cog: alert, oriented x 3. pending formal assessement. Diagnostics Vital Signs (24Hr): Vital Signs - 24 hr 07/30/23 09:20 Temperature 96.9 F Pulse Rate 68 Respiratory Rate 17 Blood Pressure 145/64 H Pulse Oximetry 97 Oxygen Delivery Method Room Air BMI result Body Mass Index 23.6 Labs 07/26/23 23:41 07/29/23 07:17 Labs: Laboratory Results - last 48 hr 07/29/23 07:17 Hold Purple Top SEE NOTE Sodium 143 Potassium 3.4 Chloride 108 Carbon Dioxide 27 Anion Gap 11 L BUN 20 H Creatinine 0.89 Estim Creat Clear Calc 66.7 Estimated GFR > 60 Fasting Glucose 100 H Calcium 9.0 Total Bilirubin 0.5 AST 23 ALT 29 Alkaline Phosphatase 89 Total Protein 5.3 L Albumin 3.1 L Triglycerides 66 Cholesterol 126 LDL Cholesterol, Calc 73 HDL Cholesterol 40 L Medications Medications Current Medications Acetaminophen (Acetaminophen 325 Mg Tablet) 650 mg PO Q6H PRN PRN Reason: Headache/Pain Mild Scale (1-3) Last Admin: 07/29/23 20:44 Dose: 650 mg Al Hydroxide/Mg Hydroxide (Magnesium Hydrox/Alum Hydrox 30 Ml Oral.Susp) 30 ml PO Q6H PRN PRN Reason: Heartburn/Nausea Clonazepam (Clonazepam 1 Mg Tablet) 1 mg PO BEDTIME JANNETTE Last Admin: 07/29/23 20:42 Dose: 1 mg Clonazepam (Clonazepam 0.5 Mg Tablet) 0.5 mg PO DAILY [facility] Last Admin: 07/30/23 09:25 Dose: 0.5 mg Clonidine HCl (Clonidine Hcl 0.1 Mg Tablet) 0.1 mg PO BID PRN; Protocol PRN Reason: sbp>170/moderate anxiety Last Admin: 07/30/23 13:52 Dose: 0.1 mg Gabapentin (Gabapentin 100 Mg Capsule) 100 mg PO BEDTIME JANNETTE Last Admin: 07/29/23 20:43 Dose: Not Given Gabapentin (Gabapentin 300 Mg Capsule) 300 mg PO DAILY JANNETTE Last Admin: 07/30/23 09:32 Dose: Not Given Magnesium Hydroxide (Milk Of Magnesia 30 Ml Oral.Susp) 30 ml PO DAILY PRN PRN Reason: Constipation Propranolol HCl (Propranolol Hcl 10 Mg Tablet) 10 mg PO TID PRN; Protocol PRN Reason: restless Last Admin: 07/30/23 17:32 Dose: 10 mg Quetiapine Fumarate (Quetiapine Fumarate 100 Mg Tablet) 100 mg PO BEDTIME PRN PRN Reason: sleep Last Admin: 07/29/23 20:49 Dose: 100 mg Allergies Allergies Allergy/AdvReac Type Severity Reaction Status Date / Time rosuvastatin [From Crestor] Allergy Mild Dizziness Verified 07/26/23 23:40 sulfacetamide Allergy Mild coma Verified 07/26/23 23:40 [From Sulfacet-R] sulfur [From Sulfacet-R] Allergy Mild coma Verified 07/26/23 23:40 Assessment & Plan Assessment & Plan (1) MDD (major depressive disorder), recurrent episode, moderate: Status: Acute Code(s): F33.1 - Major depressive disorder, recurrent, moderate (2) Generalized anxiety disorder: Status: Acute Code(s): F41.1 - Generalized anxiety disorder Plan Mr. Zhou is a 72 year-old male with hx of MDD, feeling of restless which I do suspect may be related to his dx of RLS. He also presents as hopeless and helpless due to multiple stressors including financial, not having as much assistance after divorce and worsening of physical health. We discussed risks, benefits and alternative treatment options. He agreed to stop seroquel as it may be worsening RLS. Try instead clonazepam at bedtime. Once sense of restlessness more undercontrol then will add antidepressant but will suggest either cymbalta or effexor. PLAN 1. Admit to S1, CV, 15 minutes checks for safety 2. start venlafaxine 37.5mg po daily. Reason for continued inpatient stay Substantial Risk for: inability to function Time Spent With Patient Time: Total time managing care of this patient today ____ minutes.
[2023-07-30] MEDS: clonazePAM 1 MG TABLET PO (21:02)
[2023-07-30] MEDS: QUEtiapine Fumarate 100 MG TABLET PO (21:03)
[2023-07-30] MEDS: traZODone HCL 50 MG TABLET PO (22:54)
[2023-07-31 06:00] VITALS: BP 181/82; PULSE 58; RESP 18; TEMP 36.4; O2SAT 98
--- NOTE | 2023-07-31 08:45 | P.PNPSI_ITS ---
Subjective Subjective Date of Service: 07/31/23 Reason For Visit: Psychosis Subjective Notes: Conditional Voluntary Interim History: Pt continues to present as very hopeless, helpless. He reports he wants to stay in bed because he feels tired. He states he slept better last night. He reports less anxious mood We discussed HTN and need for standing BP medication. He reports he had been on losartan for several years. will restart it. He denies SI/HI. had first dose of venlafaxine today Review of Systems Review of Systems Too anxious to give any significant history Mental Status Exam Mental Status Exam Narrative: Appearance: wearing hospital gown, fair hygiene, in NAD Behavior: initially guarded, mildly irritable Psychomotor: some tapping feet Speech: clear, normal rate/rhythm/volume, spontaneous TP: linear TC: preoccupied with pain, stressors, feeling very hopeless, helpless Mood: frustrated, terribly anxious Affect: irritable, guarded SI: passive HI: none VH/AH: none Delusions: none Insight/judgment: fair x 2. Memory/cog: alert, oriented x 3. pending formal assessement. Diagnostics Vital Signs (24Hr): Vital Signs - 24 hr 07/30/23 09:20 07/30/23 18:00 Temperature 96.9 F 97.6 F Pulse Rate 68 76 Respiratory Rate 17 18 Blood Pressure 145/64 H 172/90 H Pulse Oximetry 97 98 Oxygen Delivery Method Room Air Room Air BMI result Body Mass Index 23.6 Labs 07/26/23 23:41 07/29/23 07:17 Medications Medications Current Medications Acetaminophen (Acetaminophen 325 Mg Tablet) 650 mg PO Q6H PRN PRN Reason: Headache/Pain Mild Scale (1-3) Last Admin: 07/29/23 20:44 Dose: 650 mg Al Hydroxide/Mg Hydroxide (Magnesium Hydrox/Alum Hydrox 30 Ml Oral.Susp) 30 ml PO Q6H PRN PRN Reason: Heartburn/Nausea Clonazepam (Clonazepam 1 Mg Tablet) 1 mg PO BEDTIME [facility] Last Admin: 07/30/23 21:02 Dose: 1 mg Clonazepam (Clonazepam 0.5 Mg Tablet) 0.5 mg PO DAILY [facility] Last Admin: 07/30/23 09:25 Dose: 0.5 mg Clonidine HCl (Clonidine Hcl 0.1 Mg Tablet) 0.1 mg PO BID PRN; Protocol PRN Reason: sbp>170/moderate anxiety Last Admin: 07/30/23 13:52 Dose: 0.1 mg Gabapentin (Gabapentin 100 Mg Capsule) 100 mg PO BEDTIME [facility] Last Admin: 07/30/23 21:08 Dose: Not Given Gabapentin (Gabapentin 300 Mg Capsule) 300 mg PO DAILY [facility] Last Admin: 07/30/23 09:32 Dose: Not Given Magnesium Hydroxide (Milk Of Magnesia 30 Ml Oral.Susp) 30 ml PO DAILY PRN PRN Reason: Constipation Propranolol HCl (Propranolol Hcl 10 Mg Tablet) 10 mg PO TID PRN; Protocol PRN Reason: restless Last Admin: 07/30/23 17:32 Dose: 10 mg Quetiapine Fumarate (Quetiapine Fumarate 100 Mg Tablet) 100 mg PO BEDTIME PRN PRN Reason: sleep Last Admin: 07/30/23 21:03 Dose: 100 mg Trazodone HCl (Trazodone Hcl 50 Mg Tablet) 50 mg PO BEDTIME PRN PRN Reason: Insomnia Last Admin: 07/30/23 22:54 Dose: 50 mg Venlafaxine HCl (Venlafaxine Hcl Er 37.5 Mg Cap.Er.24h) 37.5 mg PO DAILY [facility] Allergies Allergies Allergy/AdvReac Type Severity Reaction Status Date / Time rosuvastatin [From Crestor] Allergy Mild Dizziness Verified 07/26/23 23:40 sulfacetamide Allergy Mild coma Verified 07/26/23 23:40 [From Sulfacet-R] sulfur [From Sulfacet-R] Allergy Mild coma Verified 07/26/23 23:40 Assessment & Plan Assessment & Plan (1) MDD (major depressive disorder), recurrent episode, moderate: Status: Acute Code(s): F33.1 - Major depressive disorder, recurrent, moderate (2) Generalized anxiety disorder: Status: Acute Code(s): F41.1 - Generalized anxiety disorder Plan Mr. Zhou is a 72 year-old male with hx of MDD, feeling of restless which I do suspect may be related to his dx of RLS. He also presents as hopeless and helpless due to multiple stressors including financial, not having as much assistance after divorce and worsening of physical health. We discussed risks, benefits and alternative treatment options. He agreed to stop seroquel as it may be worsening RLS. Try instead clonazepam at bedtime. Once sense of restlessness more undercontrol then will add antidepressant but will suggest either cymbalta or effexor. PLAN 1. Admit to S1, CV, 15 minutes checks for safety 2. continue effexor 37.5mg po daily, will increase in next few days to 75mg po daily. restart lossartan 25mg po daily. pending MOCA/ ACL. continue clonazepam at bedtime but will d/c morning dose due to sedation. Reason for continued inpatient stay Substantial Risk for: inability to function Time Spent With Patient Time: Total time managing care of this patient today ____ minutes.
[2023-07-31] MEDS: cloNIDine HCL 0.1 MG TABLET PO (08:59)
[2023-07-31] MEDS: clonazePAM 0.5 MG TABLET PO (08:59)
[2023-07-31] MEDS: Venlafaxine HCl ER 37.5 MG CAP.ER.24H PO (08:59)
[2023-07-31 10:01] VITALS: BMI 26.1
[2023-07-31 12:00] VITALS: BP 133/71; PULSE 55; RESP 16; O2SAT 99
[2023-07-31 18:00] VITALS: BP 140/73; PULSE 64; RESP 18; TEMP 36.6; O2SAT 97
[2023-07-31] MEDS: Acetaminophen 325 MG TABLET 650 MG PO (18:02)
[2023-07-31] MEDS: QUEtiapine Fumarate 100 MG TABLET PO (21:59)
[2023-07-31] MEDS: traZODone HCL 50 MG TABLET PO (21:59)
[2023-07-31] MEDS: clonazePAM 1 MG TABLET PO (21:59)
[2023-08-01 08:00] VITALS: BP 138/73; PULSE 56; RESP 18; TEMP 36.1; O2SAT 96
[2023-08-01] MEDS: Venlafaxine HCl ER 37.5 MG CAP.ER.24H PO (08:52)
[2023-08-01] MEDS: Losartan Potassium 25 MG TABLET PO (08:53)
[2023-08-01] MEDS: cloNIDine HCL 0.1 MG TABLET PO (09:24)
[2023-08-01] MEDS: Gabapentin 300 MG CAPSULE PO (11:17)
[2023-08-01 18:00] VITALS: BP 127/61; PULSE 66; RESP 18; TEMP 36.4; O2SAT 98
[2023-08-01] MEDS: traZODone HCL 50 MG TABLET PO ×2 (20:44→21:44)
[2023-08-01] MEDS: clonazePAM 1 MG TABLET PO (20:44)
[2023-08-01] MEDS: QUEtiapine Fumarate 100 MG TABLET PO (20:45)
--- NOTE | 2023-08-01 23:04 | HO.PSYCHPN ---
Subjective Subjective Date of Service: 08/01/23 Reason For Visit: Psychosis Subjective Notes: Conditional Voluntary Interim History: Patient depressed hopeless helpless focused on chronic pain bilateral reported neuropathy had recently made suicidal statements reported Mental Status Exam Mental Status Exam Narrative: Appearance: wearing hospital gown, fair hygiene, in NAD Behavior: initially guarded, mildly irritable Psychomotor: Lethargic Speech: clear, normal rate/rhythm/volume, spontaneous TP: linear TC: preoccupied with pain, stressors, feeling very hopeless, helpless Mood: Anxious dysphoric Affect: irritable, guarded SI: passive HI: none VH/AH: none Delusions: none Insight/judgment: fair x 2. Memory/cog: alert, oriented x 3. pending formal assessement. Diagnostics Vital Signs (24Hr): Vital Signs - 24 hr 08/01/23 08:00 08/01/23 18:00 Temperature 97.0 F 97.6 F Pulse Rate 56 66 Respiratory Rate 18 18 Blood Pressure 138/73 127/61 Pulse Oximetry 96 98 Oxygen Delivery Method Room Air Room Air BMI result Body Mass Index 26.1 Labs 07/26/23 23:41 07/29/23 07:17 Medications Medications Current Medications Acetaminophen (Acetaminophen 325 Mg Tablet) 650 mg PO Q6H PRN PRN Reason: Headache/Pain Mild Scale (1-3) Last Admin: 07/31/23 18:02 Dose: 650 mg Al Hydroxide/Mg Hydroxide (Magnesium Hydrox/Alum Hydrox 30 Ml Oral.Susp) 30 ml PO Q6H PRN PRN Reason: Heartburn/Nausea Clonazepam (Clonazepam 1 Mg Tablet) 1 mg PO BEDTIME [facility] Last Admin: 08/01/23 20:44 Dose: 1 mg Clonidine HCl (Clonidine Hcl 0.1 Mg Tablet) 0.1 mg PO BID PRN; Protocol PRN Reason: sbp>170/moderate anxiety Last Admin: 08/01/23 09:24 Dose: 0.1 mg Gabapentin (Gabapentin 100 Mg Capsule) 100 mg PO BEDTIME [facility] Last Admin: 08/01/23 20:44 Dose: Not Given Gabapentin (Gabapentin 300 Mg Capsule) 300 mg PO DAILY [facility] Last Admin: 08/01/23 11:17 Dose: 300 mg Losartan Potassium (Losartan Potassium 25 Mg Tablet) 25 mg PO DAILY [facility]; Protocol Last Admin: 08/01/23 08:53 Dose: 25 mg Magnesium Hydroxide (Milk Of Magnesia 30 Ml Oral.Susp) 30 ml PO DAILY PRN PRN Reason: Constipation Propranolol HCl (Propranolol Hcl 10 Mg Tablet) 10 mg PO TID PRN; Protocol PRN Reason: restless Last Admin: 07/30/23 17:32 Dose: 10 mg Quetiapine Fumarate (Quetiapine Fumarate 100 Mg Tablet) 100 mg PO BEDTIME PRN PRN Reason: sleep Last Admin: 08/01/23 20:45 Dose: 100 mg Trazodone HCl (Trazodone Hcl 50 Mg Tablet) 50 mg PO BEDTIME PRN PRN Reason: Insomnia Last Admin: 08/01/23 21:44 Dose: 50 mg Allergies Allergies Allergy/AdvReac Type Severity Reaction Status Date / Time rosuvastatin [From Crestor] Allergy Mild Dizziness Verified 07/26/23 23:40 sulfacetamide Allergy Mild coma Verified 07/26/23 23:40 [From Sulfacet-R] sulfur [From Sulfacet-R] Allergy Mild coma Verified 07/26/23 23:40 Assessment & Plan Assessment & Plan (1) MDD (major depressive disorder), recurrent episode, moderate: Status: Acute Code(s): F33.1 - Major depressive disorder, recurrent, moderate (2) Generalized anxiety disorder: Status: Acute Code(s): F41.1 - Generalized anxiety disorder Plan Mr. Zhou is a 72 year-old male with hx of MDD, feeling of restless which I do suspect may be related to his dx of RLS. He also presents as hopeless and helpless due to multiple stressors including financial, not having as much assistance after divorce and worsening of physical health. We discussed risks, benefits and alternative treatment options. He agreed to stop seroquel as it may be worsening RLS. Try instead clonazepam at bedtime. Once sense of restlessness more undercontrol then will add antidepressant but will suggest either cymbalta or effexor. PLAN 1. Admit to S1, CV, 15 minutes checks for safety 2. continue effexor 37.5mg po daily, will increase in next few days to 75mg po daily. restart lossartan 25mg po daily. pending MOCA/ ACL. continue clonazepam at bedtime but will d/c morning dose due to sedation. 08/01/2023 Will change venlafaxine to duloxetine may eventually have better pain control. Discussed with patient option to increase gabapentin which she did not want to do he is on Seroquel Klonopin at bedtime significant depressive symptoms Patient educated on: diagnosis, medication risk/benefits and medical condition Informed Consent: further education needed Reason for continued inpatient stay Substantial Risk for: harm to self, rapid decompensation and med/psych decompensation Time Spent With Patient Time: Total time managing care of this patient today _30___ minutes.
[2023-08-02 07:30] VITALS: BP 168/81; PULSE 61; RESP 16; TEMP 36.3; O2SAT 98
[2023-08-02] MEDS: Gabapentin 300 MG CAPSULE PO (09:16)
[2023-08-02] MEDS: Losartan Potassium 25 MG TABLET PO (09:16)
[2023-08-02] MEDS: cloNIDine HCL 0.1 MG TABLET PO (09:22)
--- NOTE | 2023-08-02 10:30 | HO.PSYCHPN ---
Subjective Subjective Date of Service: 08/02/23 Reason For Visit: Psychosis Subjective Notes: Conditional Voluntary Interim History: Patient remains somewhat isolative depressed withdrawn extreme somatic pain reaction mostly not ambulating denies active self-harm has been demoralized hopeless helpless Mental Status Exam Mental Status Exam Narrative: Appearance: wearing hospital gown, fair hygiene Behavior: initially guarded, mildly irritable Psychomotor: Lethargic Speech: clear, normal rate/rhythm/volume, spontaneous TP: linear TC: preoccupied with pain, stressors, feeling very hopeless, helpless Mood: Anxious dysphoric Affect: irritable, guarded SI: passive HI: none VH/AH: none Delusions: none Insight/judgment: fair x 2. Memory/cog: alert, oriented x 3 Diagnostics Vital Signs (24Hr): Vital Signs - 24 hr 08/01/23 18:00 08/02/23 07:30 Temperature 97.6 F 97.3 F Pulse Rate 66 61 Respiratory Rate 18 16 Blood Pressure 127/61 168/81 H Pulse Oximetry 98 98 Oxygen Delivery Method Room Air Room Air BMI result Body Mass Index 26.1 Labs 07/26/23 23:41 07/29/23 07:17 Medications Medications Current Medications Acetaminophen (Acetaminophen 325 Mg Tablet) 650 mg PO Q6H PRN PRN Reason: Headache/Pain Mild Scale (1-3) Last Admin: 07/31/23 18:02 Dose: 650 mg Al Hydroxide/Mg Hydroxide (Magnesium Hydrox/Alum Hydrox 30 Ml Oral.Susp) 30 ml PO Q6H PRN PRN Reason: Heartburn/Nausea Clonazepam (Clonazepam 1 Mg Tablet) 1 mg PO BEDTIME [facility] Last Admin: 08/01/23 20:44 Dose: 1 mg Clonidine HCl (Clonidine Hcl 0.1 Mg Tablet) 0.1 mg PO BID PRN; Protocol PRN Reason: sbp>170/moderate anxiety Last Admin: 08/02/23 09:22 Dose: 0.1 mg Duloxetine HCl (Duloxetine Hcl 20 Mg Capsule.Dr) 20 mg PO DAILY [facility] Gabapentin (Gabapentin 100 Mg Capsule) 100 mg PO BEDTIME [facility] Last Admin: 08/01/23 20:44 Dose: Not Given Gabapentin (Gabapentin 300 Mg Capsule) 300 mg PO DAILY [facility] Last Admin: 08/02/23 09:16 Dose: 300 mg Losartan Potassium (Losartan Potassium 25 Mg Tablet) 25 mg PO DAILY [facility]; Protocol Last Admin: 08/02/23 09:16 Dose: 25 mg Magnesium Hydroxide (Milk Of Magnesia 30 Ml Oral.Susp) 30 ml PO DAILY PRN PRN Reason: Constipation Propranolol HCl (Propranolol Hcl 10 Mg Tablet) 10 mg PO TID PRN; Protocol PRN Reason: restless Last Admin: 07/30/23 17:32 Dose: 10 mg Quetiapine Fumarate (Quetiapine Fumarate 100 Mg Tablet) 100 mg PO BEDTIME PRN PRN Reason: sleep Last Admin: 08/01/23 20:45 Dose: 100 mg Trazodone HCl (Trazodone Hcl 50 Mg Tablet) 50 mg PO BEDTIME PRN PRN Reason: Insomnia Last Admin: 08/01/23 21:44 Dose: 50 mg Allergies Allergies Allergy/AdvReac Type Severity Reaction Status Date / Time rosuvastatin [From Crestor] Allergy Mild Dizziness Verified 07/26/23 23:40 sulfacetamide Allergy Mild coma Verified 07/26/23 23:40 [From Sulfacet-R] sulfur [From Sulfacet-R] Allergy Mild coma Verified 07/26/23 23:40 Assessment & Plan Assessment & Plan (1) MDD (major depressive disorder), recurrent episode, moderate: Status: Acute Code(s): F33.1 - Major depressive disorder, recurrent, moderate (2) Generalized anxiety disorder: Status: Acute Code(s): F41.1 - Generalized anxiety disorder Plan Mr. Zhou is a 72 year-old male with hx of MDD, feeling of restless which I do suspect may be related to his dx of RLS. He also presents as hopeless and helpless due to multiple stressors including financial, not having as much assistance after divorce and worsening of physical health. We discussed risks, benefits and alternative treatment options. He agreed to stop seroquel as it may be worsening RLS. Try instead clonazepam at bedtime. Once sense of restlessness more undercontrol then will add antidepressant but will suggest either cymbalta or effexor. PLAN 1. Admit to S1, CV, 15 minutes checks for safety 2. continue effexor 37.5mg po daily, will increase in next few days to 75mg po daily. restart lossartan 25mg po daily. pending MOCA/ ACL. continue clonazepam at bedtime but will d/c morning dose due to sedation. 08/01/2023 Will change venlafaxine to duloxetine may eventually have better pain control. Discussed with patient option to increase gabapentin which she did not want to do he is on Seroquel Klonopin at bedtime significant depressive symptoms 08/02/2023 Duloxetine started increase to 30 mg venlafaxine discontinued neuro consult ordered PT consult patient with extreme somatic reaction question somatoform pain disorder try and clarify unclear role for pain management does not want to increase gabapentin complains of side effects Reason for continued inpatient stay Substantial Risk for: harm to self, inability to function and med/psych decompensation Time Spent With Patient Time: Total time managing care of this patient today ____ minutes.
[2023-08-02] MEDS: DULoxetine HCl 20 MG CAPSULE.DR PO (11:28)
[2023-08-02] MEDS: Propranolol HCL 10 MG TABLET PO (14:17)
[2023-08-02 18:00] VITALS: BP 126/62; PULSE 65; RESP 16; TEMP 35.9; O2SAT 99
[2023-08-02] MEDS: traZODone HCL 50 MG TABLET PO (20:46)
[2023-08-02] MEDS: clonazePAM 1 MG TABLET PO (20:47)
[2023-08-02] MEDS: QUEtiapine Fumarate 100 MG TABLET PO (20:47)
[2023-08-03 06:00] VITALS: BP 143/73; PULSE 60; RESP 16; TEMP 36.4; O2SAT 97
[2023-08-03] MEDS: Losartan Potassium 25 MG TABLET PO (08:21)
[2023-08-03] MEDS: Gabapentin 300 MG CAPSULE PO (08:23)
[2023-08-03] MEDS: DULoxetine HCl 30 MG CAPSULE.DR PO (08:41)
--- NOTE | 2023-08-03 10:31 | HO.PSYCHPN ---
Subjective Subjective Date of Service: 08/03/23 Reason For Visit: Psychosis Subjective Notes: Conditional Voluntary Interim History: Patient remains somewhat isolative depressed withdrawn extreme somatic pain spending much of his time in bed stating excruciating pain PT and neuro consult had been ordered patient states he does not really tolerate gabapentin would not take higher doses Medication Compliance: Yes Mental Status Exam Mental Status Exam Narrative: Appearance: Somewhat disheveled Behavior: Cooperative Psychomotor: Alert Speech: clear, normal rate/rhythm/volume, spontaneous TP: linear TC: preoccupied with pain, stressors, feeling very hopeless, helpless Mood: Anxious dysphoric Affect: irritable, guarded SI: passive HI: none VH/AH: none Delusions: none Insight/judgment: fair x 2. Memory/cog: alert, oriented x 3 Diagnostics Vital Signs (24Hr): Vital Signs - 24 hr 08/02/23 18:00 08/03/23 06:00 Temperature 96.6 F L 97.5 F Pulse Rate 65 60 Respiratory Rate 16 16 Blood Pressure 126/62 143/73 H Pulse Oximetry 99 97 Oxygen Delivery Method Room Air Room Air BMI result Body Mass Index 26.1 Labs 07/26/23 23:41 08/05/23 17:29 Medications Medications Current Medications Acetaminophen (Acetaminophen 325 Mg Tablet) 650 mg PO Q6H PRN PRN Reason: Headache/Pain Mild Scale (1-3) Last Admin: 07/31/23 18:02 Dose: 650 mg Al Hydroxide/Mg Hydroxide (Magnesium Hydrox/Alum Hydrox 30 Ml Oral.Susp) 30 ml PO Q6H PRN PRN Reason: Heartburn/Nausea Clonazepam (Clonazepam 1 Mg Tablet) 1 mg PO BEDTIME [facility] Last Admin: 08/02/23 20:47 Dose: 1 mg Clonidine HCl (Clonidine Hcl 0.1 Mg Tablet) 0.1 mg PO BID PRN; Protocol PRN Reason: sbp>170/moderate anxiety Last Admin: 08/02/23 09:22 Dose: 0.1 mg Duloxetine HCl (Duloxetine Hcl 30 Mg Capsule.Dr) 30 mg PO DAILY [facility] Last Admin: 08/03/23 08:41 Dose: 30 mg Gabapentin (Gabapentin 100 Mg Capsule) 100 mg PO BEDTIME [facility] Last Admin: 08/02/23 20:48 Dose: Not Given Gabapentin (Gabapentin 300 Mg Capsule) 300 mg PO DAILY [facility] Last Admin: 03/24/24 08:23 Dose: 300 mg Losartan Potassium (Losartan Potassium 25 Mg Tablet) 25 mg PO DAILY [facility]; Protocol Last Admin: 08/03/23 08:21 Dose: 25 mg Magnesium Hydroxide (Milk Of Magnesia 30 Ml Oral.Susp) 30 ml PO DAILY PRN PRN Reason: Constipation Propranolol HCl (Propranolol Hcl 10 Mg Tablet) 10 mg PO TID PRN; Protocol PRN Reason: restless Last Admin: 08/02/23 14:17 Dose: 10 mg Quetiapine Fumarate (Quetiapine Fumarate 100 Mg Tablet) 100 mg PO BEDTIME PRN PRN Reason: sleep Last Admin: 08/02/23 20:47 Dose: 100 mg Trazodone HCl (Trazodone Hcl 50 Mg Tablet) 50 mg PO BEDTIME PRN PRN Reason: Insomnia Last Admin: 08/02/23 20:46 Dose: 50 mg Allergies Allergies Allergy/AdvReac Type Severity Reaction Status Date / Time rosuvastatin [From Crestor] Allergy Mild Dizziness Verified 07/26/23 23:40 sulfacetamide Allergy Mild coma Verified 07/26/23 23:40 [From Sulfacet-R] sulfur [From Sulfacet-R] Allergy Mild coma Verified 07/26/23 23:40 Assessment & Plan Assessment & Plan (1) MDD (major depressive disorder), recurrent episode, moderate: Status: Acute Code(s): F33.1 - Major depressive disorder, recurrent, moderate (2) Generalized anxiety disorder: Status: Acute Code(s): F41.1 - Generalized anxiety disorder Plan Mr. Zhou is a 72 year-old male with hx of MDD, feeling of restless which I do suspect may be related to his dx of RLS. He also presents as hopeless and helpless due to multiple stressors including financial, not having as much assistance after divorce and worsening of physical health. We discussed risks, benefits and alternative treatment options. He agreed to stop seroquel as it may be worsening RLS. Try instead clonazepam at bedtime. Once sense of restlessness more undercontrol then will add antidepressant but will suggest either cymbalta or effexor. PLAN 1. Admit to S1, CV, 15 minutes checks for safety 2. continue effexor 37.5mg po daily, will increase in next few days to 75mg po daily. restart lossartan 25mg po daily. pending MOCA/ ACL. continue clonazepam at bedtime but will d/c morning dose due to sedation. 08/01/2023 Will change venlafaxine to duloxetine may eventually have better pain control. Discussed with patient option to increase gabapentin which she did not want to do he is on Seroquel Klonopin at bedtime significant depressive symptoms 08/02/2023 Duloxetine started increase to 30 mg venlafaxine discontinued neuro consult ordered PT consult patient with extreme somatic reaction question somatoform pain disorder try and clarify unclear role for pain management does not want to increase gabapentin complains of side effects 08/03/2019 Continue Cymbalta neuro and PT eval pending would taper gabapentin was not helpful consider Lyrica Tegretol Reason for continued inpatient stay Substantial Risk for: harm to self and rapid decompensation Time Spent With Patient Time: Total time managing care of this patient today ____ minutes.
[2023-08-03 18:00] VITALS: BP 140/69; PULSE 72; RESP 16; TEMP 36.9; O2SAT 97
[2023-08-03] MEDS: Acetaminophen 325 MG TABLET 650 MG PO (18:16)
[2023-08-03] MEDS: traZODone HCL 50 MG TABLET PO ×2 (20:33→21:40)
[2023-08-03] MEDS: clonazePAM 1 MG TABLET PO (20:33)
[2023-08-03] MEDS: QUEtiapine Fumarate 100 MG TABLET PO (20:34)
[2023-08-03] MEDS: clonazePAM 0.5 MG TABLET PO (21:40)
[2023-08-04 08:38] VITALS: BP 171/84; PULSE 66; RESP 17; TEMP 36.4; O2SAT 98
[2023-08-04] MEDS: cloNIDine HCL 0.1 MG TABLET PO (08:49)
[2023-08-04] MEDS: Losartan Potassium 25 MG TABLET PO (08:49)
[2023-08-04] MEDS: Gabapentin 100 MG CAPSULE PO ×2 (08:49→20:51)
[2023-08-04] MEDS: DULoxetine HCl 30 MG CAPSULE.DR PO (08:49)
--- NOTE | 2023-08-04 09:11 | P.PNPSI_ITS ---
Subjective Subjective Date of Service: 08/04/23 Reason For Visit: Psychosis Interim History: Pt mostly in bed. He reports intermittent pain in both feet- description of pain includes feeling of twisting feet. No pain on touch on heel. He reports feeling depressed. He denies SI/HI. However, he is very hopeless, helpless. hypertensive, but noted that have orthostatic changes to SBP >30 Review of Systems Review of Systems Quite depressed. Mental Status Exam Mental Status Exam Narrative: Appearance: Somewhat disheveled Behavior: Cooperative Psychomotor: Alert Speech: clear, normal rate/rhythm/volume, spontaneous TP: linear TC: preoccupied with pain, stressors, feeling very hopeless, helpless Mood: Anxious dysphoric Affect: irritable, guarded SI: passive HI: none VH/AH: none Delusions: none Insight/judgment: fair x 2. Memory/cog: alert, oriented x 3 Diagnostics Vital Signs (24Hr): Vital Signs - 24 hr 08/03/23 18:00 08/04/23 08:38 Temperature 98.4 F 97.5 F Pulse Rate 72 66 Respiratory Rate 16 17 Blood Pressure 140/69 H 171/84 H Pulse Oximetry 97 98 Oxygen Delivery Method Room Air Room Air BMI result Body Mass Index 26.1 Labs 07/26/23 23:41 08/05/23 17:29 Medications Medications Current Medications Acetaminophen (Acetaminophen 325 Mg Tablet) 650 mg PO Q6H PRN PRN Reason: Headache/Pain Mild Scale (1-3) Last Admin: 08/03/23 18:16 Dose: 650 mg Al Hydroxide/Mg Hydroxide (Magnesium Hydrox/Alum Hydrox 30 Ml Oral.Susp) 30 ml PO Q6H PRN PRN Reason: Heartburn/Nausea Clonazepam (Clonazepam 1 Mg Tablet) 1 mg PO BEDTIME [facility] Last Admin: 08/03/23 20:33 Dose: 1 mg Clonidine HCl (Clonidine Hcl 0.1 Mg Tablet) 0.1 mg PO BID PRN; Protocol PRN Reason: sbp>170/moderate anxiety Last Admin: 08/04/23 08:49 Dose: 0.1 mg Duloxetine HCl (Duloxetine Hcl 30 Mg Capsule.Dr) 30 mg PO DAILY [facility] Last Admin: 08/04/23 08:49 Dose: 30 mg Gabapentin (Gabapentin 100 Mg Capsule) 100 mg PO BEDTIME [facility] Last Admin: 08/03/23 22:07 Dose: Not Given Gabapentin (Gabapentin 100 Mg Capsule) 100 mg PO DAILY [facility] Last Admin: 08/04/23 08:49 Dose: 100 mg Losartan Potassium (Losartan Potassium 50 Mg Tablet) 50 mg PO DAILY [facility]; Protocol Magnesium Hydroxide (Milk Of Magnesia 30 Ml Oral.Susp) 30 ml PO DAILY PRN PRN Reason: Constipation Propranolol HCl (Propranolol Hcl 10 Mg Tablet) 10 mg PO TID PRN; Protocol PRN Reason: restless Last Admin: 08/02/23 14:17 Dose: 10 mg Quetiapine Fumarate (Quetiapine Fumarate 100 Mg Tablet) 100 mg PO BEDTIME PRN PRN Reason: sleep Last Admin: 08/03/23 20:34 Dose: 100 mg Trazodone HCl (Trazodone Hcl 100 Mg Tablet) 100 mg PO BEDTIME PRN PRN Reason: Insomnia Allergies Allergies Allergy/AdvReac Type Severity Reaction Status Date / Time rosuvastatin [From Crestor] Allergy Mild Dizziness Verified 07/26/23 23:40 sulfacetamide Allergy Mild coma Verified 07/26/23 23:40 [From Sulfacet-R] sulfur [From Sulfacet-R] Allergy Mild coma Verified 07/26/23 23:40 Assessment & Plan Assessment & Plan (1) MDD (major depressive disorder), recurrent episode, moderate: Status: Acute Code(s): F33.1 - Major depressive disorder, recurrent, moderate (2) Generalized anxiety disorder: Status: Acute Code(s): F41.1 - Generalized anxiety disorder Plan Mr. Zhou is a 72 year-old male with hx of MDD, feeling of restless which I do suspect may be related to his dx of RLS. He also presents as hopeless and helpless due to multiple stressors including financial, not having as much assistance after divorce and worsening of physical health. We discussed risks, benefits and alternative treatment options. He agreed to stop seroquel as it may be worsening RLS. Try instead clonazepam at bedtime. Once sense of restlessness more undercontrol then will add antidepressant but will suggest either cymbalta or effexor. PLAN 1. Admit to S1, CV, 15 minutes checks for safety 2. continue effexor 37.5mg po daily, will increase in next few days to 75mg po daily. restart lossartan 25mg po daily. pending MOCA/ ACL. continue clonazepam at bedtime but will d/c morning dose due to sedation. 08/01/2023 Will change venlafaxine to duloxetine may eventually have better pain control. Discussed with patient option to increase gabapentin which she did not want to do he is on Seroquel Klonopin at bedtime significant depressive symptoms 08/02/2023 Duloxetine started increase to 30 mg venlafaxine discontinued neuro consult ordered PT consult patient with extreme somatic reaction question somatoform pain disorder try and clarify unclear role for pain management does not want to increase gabapentin complains of side effects 08/03/2019 Continue Cymbalta neuro and PT eval pending would taper gabapentin was not helpful consider Lyrica Tegretol 08/03 increase cymbalta 40mg po daily. pt seen by neurology Reason for continued inpatient stay Substantial Risk for: inability to function Time Spent With Patient Time: Total time managing care of this patient today ____ minutes.
--- NOTE | 2023-08-04 09:24 | P.CNNE_ITS ---
History of Present Illness Data of Consult Service Date: 08/04/23 Primary Care Provider: Unknown Physician HPI Reason for consult: Foot pain 72 years old man who I had seen in my office with complaints of mild to moderate foot discomfort including numbness and cold feeling and also symptoms of restless leg syndrome. He was given prescription of ropinirole and gabapentin 100 mg and had reported in the past that these medicines were helping. His last visit was in November of 2022 and he had asked for refill of gabapentin in January. Now he was in hospital quite depressed. He reported that his feet were hurting and the feeling was like pressure type. He said that gabapentin was not helping. Review of Systems 2 Review of Systems: Quite depressed. [facility] Family History Family History Maternal Grandmother Throat cancer Surgical History Surgical History H/O colonoscopy Social History Social History Household Members: None Housing: Apartment Do you presently have visiting nurse or other home services: No Patient Tobacco Use Status: Never used Tobacco Smoked in Last 30 Days: No Patient Interested in Nicotine Replacement: No Patient Given Instructions on How to Stop Smoking: No Second Hand Smoke Exposure: No Use of substances other than those prescribed or required for medical reasons: No Currently Displaying Signs/Symptoms of Drug Intoxication Withdrawal: No Any prior treatment program specific to substance use: No Have you been hit, kicked, punched, or otherwise hurt by someone within the past year? If so, by whom?: No Do you feel safe in your current relationship?: No Current Relationship Is there a partner from a previous relationship who is making you feel unsafe now?: No Are you made to feel afraid or neglected: No Advance Directives: No Advance Directives Information Provided: No Do you have thoughts of harming others: None Do you have a plan to hurt others: No Plan Recently lost weight without trying: Yes How much weight loss: Unsure Eating poorly because of decreased appetite: Yes Nutrition screen score: 5 Nutrition Risks: No Nutritional Risk Poor oral hygiene: No service: No Sexual orientation: Straight/Heterosexual Meds Allergies Allergy/AdvReac Type Severity Reaction Status Date / Time rosuvastatin [From Crestor] Allergy Mild Dizziness Verified 07/26/23 23:40 sulfacetamide Allergy Mild coma Verified 07/26/23 23:40 [From Sulfacet-R] sulfur [From Sulfacet-R] Allergy Mild coma Verified 07/26/23 23:40 Active Medications: Current Medications Acetaminophen (Acetaminophen 325 Mg Tablet) 650 mg PO Q6H PRN PRN Reason: Headache/Pain Mild Scale (1-3) Last Admin: 08/03/23 18:16 Dose: 650 mg Al Hydroxide/Mg Hydroxide (Magnesium Hydrox/Alum Hydrox 30 Ml Oral.Susp) 30 ml PO Q6H PRN PRN Reason: Heartburn/Nausea Clonazepam (Clonazepam 1 Mg Tablet) 1 mg PO BEDTIME JANNETTE Last Admin: 08/03/23 20:33 Dose: 1 mg Clonidine HCl (Clonidine Hcl 0.1 Mg Tablet) 0.1 mg PO BID PRN; Protocol PRN Reason: sbp>170/moderate anxiety Last Admin: 08/04/23 08:49 Dose: 0.1 mg Duloxetine HCl (Duloxetine Hcl 30 Mg Capsule.Dr) 30 mg PO DAILY JANNETTE Last Admin: 08/04/23 08:49 Dose: 30 mg Gabapentin (Gabapentin 100 Mg Capsule) 100 mg PO BEDTIME JANNETTE Last Admin: 08/03/23 22:07 Dose: Not Given Gabapentin (Gabapentin 100 Mg Capsule) 100 mg PO DAILY JANNETTE Last Admin: 08/04/23 08:49 Dose: 100 mg Losartan Potassium (Losartan Potassium 50 Mg Tablet) 50 mg PO DAILY JANNETTE; Protocol Magnesium Hydroxide (Milk Of Magnesia 30 Ml Oral.Susp) 30 ml PO DAILY PRN PRN Reason: Constipation Propranolol HCl (Propranolol Hcl 10 Mg Tablet) 10 mg PO TID PRN; Protocol PRN Reason: restless Last Admin: 08/02/23 14:17 Dose: 10 mg Quetiapine Fumarate (Quetiapine Fumarate 100 Mg Tablet) 100 mg PO BEDTIME PRN PRN Reason: sleep Last Admin: 08/03/23 20:34 Dose: 100 mg Trazodone HCl (Trazodone Hcl 100 Mg Tablet) 100 mg PO BEDTIME PRN PRN Reason: Insomnia Home Medications Medication Instructions Recorded Confirmed Last Taken Type gabapentin 300 mg capsule 300 mg PO DAILY 05/14/23 07/27/23 Unknown History quetiapine 100 mg tablet 100 mg PO BEDTIME 05/14/23 07/27/23 Unknown History clonidine HCl 0.2 mg tablet 0.2 mg PO BID PRN Anxiety 07/27/23 07/27/23 Unknown History gabapentin 100 mg capsule 100 mg PO BEDTIME Sleep 07/27/23 07/27/23 Unknown History hydroxyzine HCl 25 mg tablet 25 mg PO TID 07/27/23 07/27/23 Unknown History quetiapine 25 mg tablet 25 mg PO BID PRN anxiety 07/27/23 07/27/23 Unknown History Physical Exam 2 Vital Signs: Vital Signs: Last Vital Signs Temp 97.5 F 08/04/23 08:38 Pulse 66 08/04/23 08:38 Resp 17 08/04/23 08:38 BP 171/84 H 08/04/23 08:38 Pulse Ox 98 08/04/23 08:38 O2 Del Method Room Air 08/04/23 08:38 BMI result Body Mass Index 26.1 Neuro: Other: He is alert and awake with normal spontaneity of speech fluency comprehension and depressed affect. Deep tendon reflexes are absent with flexor plantars. There is no significant allodynia. Results Labs 07/26/23 23:41 07/29/23 07:17 Assessment and Plan (1) Foot pain: Qualifiers: Laterality: bilateral Qualified Code(s): M79.671 - Pain in right foot; M79.672 - Pain in left foot Status: Acute 72 years old man with complaints of bilateral foot pain with element of restless leg syndrome. His previous EMG nerve conduction study revealed minimal findings of neuropathy. He done well with small dose of gabapentin, 100 mg, and small dose of ropinirole. At this point, his main issue is depression. I agree with starting duloxetine for pain control but it might not be a strong antidepressant. In any case we could try it up to 90 mg a day. At night, I would suggest giving a ropinirole 0.25 mg and if needed gabapentin 100 mg. Avoid gabapentin during daytime if it is used for pain control. Also avoid any other habit-forming medicines for pain control. Procedures Date of Service Date of Service: 08/04/23
[2023-08-04] MEDS: Acetaminophen 325 MG TABLET 975 MG PO ×2 (10:10→18:42)
--- NOTE | 2023-08-04 12:10 | MHC.CLN ---
NUTRITION DIET=REGULAR. PATIENT USUALLY EATING 100% OF MEALS. WILL RECEIVE ADDITIONAL FOODS SUCH YOGURT OR PUDDING WHEN REQUESTED. DISCONTINUE MAGIC CUP ONE TIME DAILY SINCE PATIENT ABLE TO MAKE NEEDS KNOWN FOR ADDITIONAL FOODS.
[2023-08-04 14:07] VITALS: BP 122/63; PULSE 61
[2023-08-04] MEDS: NaPROXEN 250 MG TABLET PO (17:24)
[2023-08-04 18:00] VITALS: BP 129/69; PULSE 64; RESP 18; TEMP 36.6; O2SAT 100
[2023-08-04] MEDS: traZODone HCL 100 MG TABLET PO (20:51)
[2023-08-04] MEDS: clonazePAM 1 MG TABLET PO (20:51)
[2023-08-04] MEDS: QUEtiapine Fumarate 100 MG TABLET PO (20:52)
[2023-08-04] MEDS: clonazePAM 0.5 MG TABLET PO (22:08)
[2023-08-04] MEDS: traZODone HCL 50 MG TABLET PO (22:08)
[2023-08-05] VITALS (7 sets, daily range): BP systolic 117–160; BP diastolic 68–77; PULSE 57–74; RESP 16–18; TEMP 36.1–36.6; O2SAT 96–97
--- NOTE | 2023-08-05 02:45 | PC.NURSE ---
08-04-23 pt has been given an extra dose of klonopin and trazadone for c/o refractory insomnia and anxiety. pt instructed to use nursing call evans should he wish to exit the bed. pt demonstrates appropriate knowledge to push call evans and verbalizes an understanding of importance of calling nursing staff for assistance to exit bed. bed alarms have been activated.
[2023-08-05] MEDS: Losartan Potassium 50 MG TABLET PO (08:26)
[2023-08-05] MEDS: NaPROXEN 250 MG TABLET PO ×2 (08:26→16:57)
[2023-08-05] MEDS: DULoxetine HCl 20 MG CAPSULE.DR 40 MG PO (08:26)
[2023-08-05] MEDS: Acetaminophen 325 MG TABLET 975 MG PO (13:04)
--- NOTE | 2023-08-05 15:35 | PM.EVENT ---
Event Note Date of Service: 08/05/23 Event Note: Consult placed to hospitalist service due to orthostasis thought to be secondary to autonomic dysfunction with associated positional lightheadedness. BP 160/70 --> 118/70. Patient is eating/drinking appropriately. He is on losartan for intermittent hypertension. Would recommend changing to PM dosing. Can also utilize compression stockings. Discontinue clonidine. Would monitor for now. Can consider adding fludrocortisone, but would be hesitant as patient is not truly hypotensive and is often hypertensive. Would recommend monitoring for now and using caution with position changes. Unfortunately, midodrine is also not appropriate for this patient. Would also recommend checking blood pressures manually. Time Spent With Patient Time: Total time managing care of this patient today ____ minutes.
--- NOTE | 2023-08-05 16:27 | P.PNPSI_ITS ---
Subjective Subjective Date of Service: 08/05/23 Reason For Visit: Psychosis Subjective Notes: Conditional Voluntary Interim History: Pt reports slightly better sleep last night. He continues to report ongoing pain feet-describes it as someone twisting both feet. 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 No grimacing when ambulating not limping noted when walking. He presents with irritable edge at times, and very hopeless/helpless. No SI/HI. He reports less depressed mood but again reports he is not sure his depression was as severe more than feet pain, and rumination about other financial and inability to function concerns. Medication Compliance: Yes Review of Systems Review of Systems Quite depressed. Mental Status Exam Mental Status Exam Narrative: Appearance: Somewhat disheveled Behavior: Cooperative Psychomotor: Alert Speech: clear, normal rate/rhythm/volume, spontaneous TP: linear TC: preoccupied with pain, stressors, feeling very hopeless, helpless Mood: Anxious dysphoric Affect: irritable, guarded SI: passive HI: none VH/AH: none Delusions: none Insight/judgment: fair x 2. Memory/cog: alert, oriented x 3 Diagnostics Vital Signs (24Hr): Vital Signs - 24 hr 08/04/23 18:00 08/05/23 02:32 08/05/23 02:35 Temperature 98 F Pulse Rate 64 58 68 Respiratory Rate 18 Blood Pressure 129/69 160/77 H 118/70 Pulse Oximetry 100 Oxygen Delivery Method Room Air 08/05/23 02:40 08/05/23 03:30 08/05/23 08:00 Temperature 97 F 97.2 F Pulse Rate 68 58 57 Respiratory Rate 16 18 Blood Pressure 117/69 160/77 H 155/77 H Pulse Oximetry 97 96 Oxygen Delivery Method Room Air BMI result Body Mass Index 26.1 Labs 07/26/23 23:41 08/05/23 17:29 Medications Medications Current Medications Acetaminophen (Acetaminophen 325 Mg Tablet) 975 mg PO TID PRN PRN Reason: Pain, Moderate(Pain Scale 4-6) Last Admin: 08/05/23 13:04 Dose: 975 mg Al Hydroxide/Mg Hydroxide (Magnesium Hydrox/Alum Hydrox 30 Ml Oral.Susp) 30 ml PO Q6H PRN PRN Reason: Heartburn/Nausea Clonazepam (Clonazepam 1 Mg Tablet) 1 mg PO BEDTIME JANNETTE Last Admin: 08/04/23 20:51 Dose: 1 mg Duloxetine HCl (Duloxetine Hcl 20 Mg Capsule.Dr) 40 mg PO DAILY [facility] Last Admin: 08/05/23 08:26 Dose: 40 mg Gabapentin (Gabapentin 100 Mg Capsule) 100 mg PO BEDTIME JANNETTE Last Admin: 08/04/23 20:51 Dose: 100 mg Losartan Potassium (Losartan Potassium 50 Mg Tablet) 50 mg PO DAILY JANNETTE; Protocol Last Admin: 08/05/23 08:26 Dose: 50 mg Magnesium Hydroxide (Milk Of Magnesia 30 Ml Oral.Susp) 30 ml PO DAILY PRN PRN Reason: Constipation Naproxen (Naproxen 250 Mg Tablet) 250 mg PO BIDWM [facility] Last Admin: 08/05/23 08:26 Dose: 250 mg Propranolol HCl (Propranolol Hcl 10 Mg Tablet) 10 mg PO TID PRN; Protocol PRN Reason: restless Last Admin: 08/02/23 14:17 Dose: 10 mg Quetiapine Fumarate (Quetiapine Fumarate 100 Mg Tablet) 100 mg PO BEDTIME PRN PRN Reason: sleep Last Admin: 08/04/23 20:52 Dose: 100 mg Ropinirole HCl (Ropinirole Hcl 0.25 Mg Tablet) 0.25 mg PO BEDTIME [facility] Last Admin: 08/04/23 22:17 Dose: Not Given Trazodone HCl (Trazodone Hcl 100 Mg Tablet) 100 mg PO BEDTIME [facility] Last Admin: 08/04/23 20:51 Dose: 100 mg Allergies Allergies Allergy/AdvReac Type Severity Reaction Status Date / Time rosuvastatin [From Crestor] Allergy Mild Dizziness Verified 07/26/23 23:40 sulfacetamide Allergy Mild coma Verified 07/26/23 23:40 [From Sulfacet-R] sulfur [From Sulfacet-R] Allergy Mild coma Verified 07/26/23 23:40 Assessment & Plan Assessment & Plan (1) Generalized anxiety disorder: Status: Acute Code(s): F41.1 - Generalized anxiety disorder (2) MDD (major depressive disorder), recurrent episode, moderate: Status: Acute Code(s): F33.1 - Major depressive disorder, recurrent, moderate Plan increase cymbalta to 40mg po daily. continue gabapentin, ropinirole Reason for continued inpatient stay Substantial Risk for: inability to function Time Spent With Patient Time: Total time managing care of this patient today ____ minutes.
[2023-08-05 17:48] LABS: Alanine Aminotransferase 34 U/L (0-40); Albumin Level 3.3 g/dL (3.5-5.0); Alkaline Phosphatase 96 U/L (39-117); Anion Gap 10 (12-20); Aspartate Amino Transferase 24 U/L (5-37); Bilirubin Total 0.3 mg/dL (0.0-1.0); Blood Urea Nitrogen 18 mg/dL (9-16); Calcium 8.9 mg/dL (8.4-10.2); Carbon Dioxide 30 mmol/L (22-29); Chloride 105 mmol/L (96-108); Creatinine Clr Calc Pharmacy 63.1; Estimated Glomerular Filt Rate > 60; Glucose Random 124 mg/dL (60-115); Potassium 4.1 mmol/L (3.3-5.1); Sodium 141 mmol/L (135-145)
[2023-08-05 19:29] LABS: C Reactive Protein 0.11 mg/dL (< or = 0.50)
[2023-08-05] MEDS: traZODone HCL 100 MG TABLET PO (20:53)
[2023-08-05] MEDS: QUEtiapine Fumarate 100 MG TABLET PO (20:53)
[2023-08-05] MEDS: clonazePAM 1 MG TABLET PO (20:53)
[2023-08-05] MEDS: Propranolol HCL 10 MG TABLET PO (22:26)
[2023-08-06 09:41] VITALS: BP 147/70; PULSE 67; RESP 17; TEMP 36.4; O2SAT 98
--- NOTE | 2023-08-06 09:42 | P.PNPSI_ITS ---
Subjective Subjective Date of Service: 08/06/23 Reason For Visit: Psychosis Subjective Notes: Conditional Voluntary Interim History: Pt reports constipation, which he states is new but looking at medical records this has been an issue for some months. Pt reports pain in feet as most debilitating factor. However, pt appears very impaired in his ability to function and scored low on ACL 3.6 and MOCa 19/30 with most impairments in executive function, visuospatial skills, recall, language fluency. Certainly there is a much more severe cognitive impairment seen in ACL than moca which does coincide with his level of functioning seen here on the unit. He denies SI/HI. He reports he does not want to take ropinirole- states it made him feel worse, nor gabapentin. He continues to report it makes him have dry mouth and pt has been explained this is not common side effect of this medication. Review of Systems Review of Systems Quite depressed. Mental Status Exam Mental Status Exam Narrative: Appearance: Somewhat disheveled Behavior: Cooperative Psychomotor: Alert Speech: clear, normal rate/rhythm/volume, spontaneous TP: linear TC: preoccupied with pain, stressors, feeling very hopeless, helpless Mood: Anxious dysphoric Affect: irritable, guarded SI: passive HI: none VH/AH: none Delusions: none Insight/judgment: fair x 2. Memory/cog: alert, oriented x 3 Diagnostics Vital Signs (24Hr): Vital Signs - 24 hr 08/05/23 18:00 08/05/23 22:20 Temperature 97.9 F Pulse Rate 74 Respiratory Rate 18 Blood Pressure 146/72 H 140/68 H Pulse Oximetry 96 Oxygen Delivery Method Room Air BMI result Body Mass Index 26.1 Labs 07/26/23 23:41 08/05/23 17:29 Labs: Laboratory Results - last 48 hr 07/29/23 08/05/23 08/05/23 07:17 07:17 17:29 ESR Cancelled Sodium 141 Potassium 4.1 D Chloride 105 Carbon Dioxide 30 H Anion Gap 10 L BUN 18 H Creatinine 0.94 Estim Creat Clear Calc 63.1 Estimated GFR > 60 Random Glucose 124 H Calcium 8.9 Total Bilirubin 0.3 AST 24 ALT 34 Alkaline Phosphatase 96 C-Reactive Protein Cancelled 0.11 Total Protein 6.0 L Albumin 3.3 L Medications Medications Current Medications Acetaminophen (Acetaminophen 325 Mg Tablet) 975 mg PO TID PRN PRN Reason: Pain, Moderate(Pain Scale 4-6) Last Admin: 08/05/23 13:04 Dose: 975 mg Al Hydroxide/Mg Hydroxide (Magnesium Hydrox/Alum Hydrox 30 Ml Oral.Susp) 30 ml PO Q6H PRN PRN Reason: Heartburn/Nausea Clonazepam (Clonazepam 1 Mg Tablet) 1 mg PO BEDTIME [facility] Last Admin: 08/05/23 20:53 Dose: 1 mg Duloxetine HCl (Duloxetine Hcl 20 Mg Capsule.Dr) 40 mg PO DAILY [facility] Last Admin: 08/05/23 08:26 Dose: 40 mg Gabapentin (Gabapentin 100 Mg Capsule) 100 mg PO BEDTIME JANNETTE Last Admin: 08/05/23 21:23 Dose: Not Given Losartan Potassium (Losartan Potassium 50 Mg Tablet) 50 mg PO DAILY [facility]; Protocol Last Admin: 08/05/23 08:26 Dose: 50 mg Magnesium Hydroxide (Milk Of Magnesia 30 Ml Oral.Susp) 30 ml PO DAILY PRN PRN Reason: Constipation Naproxen (Naproxen 250 Mg Tablet) 250 mg PO BIDWM [facility] Last Admin: 08/05/23 16:57 Dose: 250 mg Propranolol HCl (Propranolol Hcl 10 Mg Tablet) 10 mg PO TID PRN; Protocol PRN Reason: restless Last Admin: 08/05/23 22:26 Dose: 10 mg Quetiapine Fumarate (Quetiapine Fumarate 100 Mg Tablet) 100 mg PO BEDTIME PRN PRN Reason: sleep Last Admin: 08/05/23 20:53 Dose: 100 mg Ropinirole HCl (Ropinirole Hcl 0.25 Mg Tablet) 0.25 mg PO BEDTIME [facility] Last Admin: 08/05/23 21:23 Dose: Not Given Trazodone HCl (Trazodone Hcl 100 Mg Tablet) 100 mg PO BEDTIME [facility] Last Admin: 08/05/23 20:53 Dose: 100 mg Allergies Allergies Allergy/AdvReac Type Severity Reaction Status Date / Time rosuvastatin [From Crestor] Allergy Mild Dizziness Verified 07/26/23 23:40 sulfacetamide Allergy Mild coma Verified 07/26/23 23:40 [From Sulfacet-R] sulfur [From Sulfacet-R] Allergy Mild coma Verified 07/26/23 23:40 Assessment & Plan Assessment & Plan (1) MDD (major depressive disorder), recurrent episode, moderate: Status: Acute Code(s): F33.1 - Major depressive disorder, recurrent, moderate (2) Generalized anxiety disorder: Status: Acute Code(s): F41.1 - Generalized anxiety disorder (3) Cognitive impairment: Status: Acute Code(s): R41.89 - Other symptoms and signs involving cognitive functions and awareness Plan Mr. Zhou is a 72 year-old male with hx of MDD, feeling of restless which I do suspect may be related to his dx of RLS. He also presents as hopeless and helpless due to multiple stressors including financial, not having as much assistance after divorce and worsening of physical health. We discussed risks, benefits and alternative treatment options. He agreed to stop seroquel as it may be worsening RLS. Try instead clonazepam at bedtime. Once sense of restlessness more undercontrol then will add antidepressant but will suggest either cymbalta or effexor. PLAN 1. Admit to S1, CV, 15 minutes checks for safety 2. continue effexor 37.5mg po daily, will increase in next few days to 75mg po daily. restart lossartan 25mg po daily. pending MOCA/ ACL. continue clonazepam at bedtime but will d/c morning dose due to sedation. 08/01/2023 Will change venlafaxine to duloxetine may eventually have better pain control. Discussed with patient option to increase gabapentin which she did not want to do he is on Seroquel Klonopin at bedtime significant depressive symptoms 08/02/2023 Duloxetine started increase to 30 mg venlafaxine discontinued neuro consult ordered PT consult patient with extreme somatic reaction question somatoform pain disorder try and clarify unclear role for pain management does not want to increase gabapentin complains of side effects 08/03/2019 Continue Cymbalta neuro and PT eval pending would taper gabapentin was not helpful consider Lyrica Tegretol 08/03 increase cymbalta 40mg po daily. pt seen by neurology 08/04 increase cymbalta to 60mg po daily 08/05 dc gabapentin as pt declines to take it as well as ropinirole. start lyrica 25mg po qhs. Reason for continued inpatient stay Substantial Risk for: inability to function Time Spent With Patient Time: Total time managing care of this patient today ____ minutes.
[2023-08-06] MEDS: NaPROXEN 250 MG TABLET PO ×2 (09:44→17:11)
[2023-08-06] MEDS: Losartan Potassium 50 MG TABLET PO (09:44)
[2023-08-06] MEDS: DULoxetine HCl 20 MG CAPSULE.DR 40 MG PO (09:44)
[2023-08-06] MEDS: Milk of Magnesia 30 ML ORAL.SUSP PO (12:11)
[2023-08-06 18:00] VITALS: BP 177/79; PULSE 70; RESP 18; TEMP 36.6; O2SAT 96
[2023-08-06] MEDS: Acetaminophen 325 MG TABLET 975 MG PO (18:19)
[2023-08-06] MEDS: Pregabalin 25 MG CAPSULE PO (20:46)
[2023-08-06] MEDS: Sennosides/Docusate Sodium TABLET 1 TAB PO (20:46)
[2023-08-06] MEDS: clonazePAM 1 MG TABLET PO (20:46)
[2023-08-06] MEDS: traZODone HCL 100 MG TABLET PO (20:46)
[2023-08-06] MEDS: QUEtiapine Fumarate 100 MG TABLET PO (21:16)
[2023-08-07 06:00] VITALS: BP 135/77; PULSE 63; TEMP 36.2; O2SAT 95
[2023-08-07 07:00] VITALS: BMI 25.7
[2023-08-07] MEDS: NaPROXEN 250 MG TABLET PO (08:59)
[2023-08-07] MEDS: Sennosides/Docusate Sodium TABLET 1 TAB PO ×2 (08:59→20:59)
[2023-08-07] MEDS: DULoxetine HCl 60 MG CAPSULE.DR PO (08:59)
[2023-08-07] MEDS: Lactulose 20 GM/30 ML SOLUTION PO ×2 (14:52→21:00)
[2023-08-07 14:53] LABS: Anti Nuclear Antibody Screen NEGATIVE (NEGATIVE)
--- NOTE | 2023-08-07 15:35 | P.PNPSI_ITS ---
Subjective Subjective Date of Service: 08/07/23 Reason For Visit: Psychosis Subjective Notes: Conditional Voluntary Interim History: We had family meeting today. Discussed cognitive decline along with more hopeless mood. He continues to report that he has not seen any improvement while on the unit. We discussed some improvement in sleep- which he then agreed was better. He continues to report sensation of feet turning and twisting. He also reports constipation. started on miralax, lactulose. He denies SI/HI. He is somewhat irritable, catastrophic at times as well- despite reassurance that son was working on paying bills he thinks he will lose everything anyway. Mental Status Exam Mental Status Exam Narrative: Appearance: Somewhat disheveled Behavior: Cooperative Psychomotor: Alert Speech: clear, normal rate/rhythm/volume, spontaneous TP: linear TC: preoccupied with pain, stressors, feeling very hopeless, helpless Mood: Anxious dysphoric Affect: irritable, guarded SI: passive HI: none VH/AH: none Delusions: none Insight/judgment: fair x 2. Memory/cog: alert, oriented x 3 Diagnostics Vital Signs (24Hr): Vital Signs - 24 hr 08/06/23 18:00 08/07/23 06:00 Temperature 97.8 F 97.2 F Pulse Rate 70 63 Respiratory Rate 18 Blood Pressure 177/79 H 135/77 Pulse Oximetry 96 95 Oxygen Delivery Method Room Air Room Air BMI result Body Mass Index 25.7 Labs 07/26/23 23:41 08/05/23 17:29 Labs: Laboratory Results - last 48 hr 07/29/23 08/05/23 08/05/23 07:17 07:17 10:20 ESR Cancelled Sodium Potassium Chloride Carbon Dioxide Anion Gap BUN Creatinine Estim Creat Clear Calc Estimated GFR Random Glucose Calcium Total Bilirubin AST ALT Alkaline Phosphatase C-Reactive Protein Cancelled Total Protein Albumin ESTUARDO Screen NEGATIVE 08/05/23 17:29 ESR Sodium 141 Potassium 4.1 D Chloride 105 Carbon Dioxide 30 H Anion Gap 10 L BUN 18 H Creatinine 0.94 Estim Creat Clear Calc 63.1 Estimated GFR > 60 Random Glucose 124 H Calcium 8.9 Total Bilirubin 0.3 AST 24 ALT 34 Alkaline Phosphatase 96 C-Reactive Protein 0.11 Total Protein 6.0 L Albumin 3.3 L ESTUARDO Screen Medications Medications Current Medications Acetaminophen (Acetaminophen 325 Mg Tablet) 975 mg PO TID PRN PRN Reason: Pain, Moderate(Pain Scale 4-6) Last Admin: 08/06/23 18:19 Dose: 975 mg Al Hydroxide/Mg Hydroxide (Magnesium Hydrox/Alum Hydrox 30 Ml Oral.Susp) 30 ml PO Q6H PRN PRN Reason: Heartburn/Nausea Clonazepam (Clonazepam 1 Mg Tablet) 1 mg PO BEDTIME [facility] Last Admin: 08/06/23 20:46 Dose: 1 mg Duloxetine HCl (Duloxetine Hcl 60 Mg Capsule.Dr) 60 mg PO DAILY [facility] Last Admin: 08/07/23 08:59 Dose: 60 mg Lactulose (Lactulose 20 Gm/30 Ml Solution) 20 gm PO BID [facility] Last Admin: 08/07/23 14:52 Dose: 20 gm Losartan Potassium (Losartan Potassium 50 Mg Tablet) 50 mg PO BEDTIME [facility]; Protocol Magnesium Hydroxide (Milk Of Magnesia 30 Ml Oral.Susp) 30 ml PO DAILY PRN PRN Reason: Constipation Last Admin: 08/06/23 12:11 Dose: 30 ml Naproxen (Naproxen 250 Mg Tablet) 250 mg PO BIDWM [facility] Last Admin: 08/07/23 08:59 Dose: 250 mg Pregabalin (Pregabalin 25 Mg Capsule) 25 mg PO BEDTIME [facility] Last Admin: 08/06/23 20:46 Dose: 25 mg Quetiapine Fumarate (Quetiapine Fumarate 100 Mg Tablet) 100 mg PO BEDTIME PRN PRN Reason: sleep Last Admin: 08/06/23 21:16 Dose: 100 mg Senna/Docusate Sodium (Sennosides/Docusate Sodium Tablet) 1 tab PO BID [facility] Last Admin: 08/07/23 08:59 Dose: 1 tab Trazodone HCl (Trazodone Hcl 100 Mg Tablet) 100 mg PO BEDTIME [facility] Last Admin: 08/06/23 20:46 Dose: 100 mg Allergies Allergies Allergy/AdvReac Type Severity Reaction Status Date / Time rosuvastatin [From Crestor] Allergy Mild Dizziness Verified 07/26/23 23:40 sulfacetamide Allergy Mild coma Verified 07/26/23 23:40 [From Sulfacet-R] sulfur [From Sulfacet-R] Allergy Mild coma Verified 07/26/23 23:40 Assessment & Plan Assessment & Plan (1) MDD (major depressive disorder), recurrent episode, moderate: Status: Acute Code(s): F33.1 - Major depressive disorder, recurrent, moderate (2) Generalized anxiety disorder: Status: Acute Code(s): F41.1 - Generalized anxiety disorder (3) Cognitive impairment: Status: Acute Code(s): R41.89 - Other symptoms and signs involving cognitive functions and awareness Plan Mr. Zhou is a 72 year-old male with hx of MDD, feeling of restless which I do suspect may be related to his dx of RLS. He also presents as hopeless and helpless due to multiple stressors including financial, not having as much assistance after divorce and worsening of physical health. We discussed risks, benefits and alternative treatment options. He agreed to stop seroquel as it may be worsening RLS. Try instead clonazepam at bedtime. Once sense of restlessness more undercontrol then will add antidepressant but will suggest either cymbalta or effexor. PLAN 1. Admit to S1, CV, 15 minutes checks for safety 2. continue effexor 37.5mg po daily, will increase in next few days to 75mg po daily. restart lossartan 25mg po daily. pending MOCA/ ACL. continue clonazepam at bedtime but will d/c morning dose due to sedation. 08/01/2023 Will change venlafaxine to duloxetine may eventually have better pain control. Discussed with patient option to increase gabapentin which she did not want to do he is on Seroquel Klonopin at bedtime significant depressive symptoms 08/02/2023 Duloxetine started increase to 30 mg venlafaxine discontinued neuro consult ordered PT consult patient with extreme somatic reaction question somatoform pain disorder try and clarify unclear role for pain management does not want to increase gabapentin complains of side effects 08/03/2019 Continue Cymbalta neuro and PT eval pending would taper gabapentin was not helpful consider Lyrica Tegretol 08/03 increase cymbalta 40mg po daily. pt seen by neurology 08/04 increase cymbalta to 60mg po daily 08/05 dc gabapentin as pt declines to take it as well as ropinirole. start lyrica 25mg po qhs. 08/06 increase lyrica to 50mg po qhs. Reason for continued inpatient stay Substantial Risk for: inability to function Time Spent With Patient Time: Total time managing care of this patient today ____ minutes.
[2023-08-07 15:53] LABS: C Reactive Protein 0.11 mg/dL (< or = 0.50)
[2023-08-07 15:56] LABS: Erythrocyte Sedimentation Rate 6 MM/HR (0-15)
[2023-08-07 20:46] VITALS: BP 145/67; PULSE 74; RESP 16; TEMP 36.6; O2SAT 96
[2023-08-07] MEDS: Pregabalin 50 MG CAPSULE PO (20:58)
[2023-08-07] MEDS: clonazePAM 1 MG TABLET PO (20:59)
[2023-08-07] MEDS: Losartan Potassium 50 MG TABLET PO (20:59)
[2023-08-07] MEDS: traZODone HCL 100 MG TABLET PO (20:59)
[2023-08-07] MEDS: QUEtiapine Fumarate 100 MG TABLET PO (21:00)
[2023-08-08 08:42] VITALS: BP 120/65; PULSE 67; RESP 15; TEMP 36.4; O2SAT 95
[2023-08-08] MEDS: NaPROXEN 250 MG TABLET PO ×2 (08:43→16:46)
[2023-08-08] MEDS: DULoxetine HCl 60 MG CAPSULE.DR PO (08:43)
[2023-08-08] MEDS: Lactulose 20 GM/30 ML SOLUTION PO (08:43)
[2023-08-08] MEDS: Sennosides/Docusate Sodium TABLET 1 TAB PO ×2 (08:43→21:05)
[2023-08-08] MEDS: polyethylene glycoL 3350 17 GM POWD.PACK PO (13:34)
[2023-08-08] MEDS: Cyclobenzaprine HCl 5 MG TABLET PO (13:34)
[2023-08-08] MEDS: Magnesium Oxide 400 MG TABLET PO ×2 (13:35→16:46)
[2023-08-08] MEDS: Pregabalin 50 MG CAPSULE PO ×2 (13:36→21:03)
--- NOTE | 2023-08-08 16:16 | P.PNPSI_ITS ---
Subjective Subjective Date of Service: 08/08/23 Reason For Visit: Psychosis Subjective Notes: Conditional Voluntary Interim History: He reports sleep is better and he was able to sleep. He reports feeling dizzy when standing up. He also continues to report twisting of his feet. He denies back pain. pt constantly moving feet. He denies SI/HI. He also reports mood related to ongoing- twitching of his feet. It could be most debilitating symptoms are related to RLS- as nerve conduction study shows minimal neuropathy and description of pain is still twitching type of pain, less plantar faciatis. We discuss STOPPING seroquel- as it can worsen RLS which seems difficult to tx and symptoms visible also during the day. Pt explained that other medications are scheduled for sleep which can be adjusted. See if this helps the pain. Review of Systems Review of Systems Quite depressed. Mental Status Exam Mental Status Exam Narrative: Appearance: Somewhat disheveled Behavior: Cooperative Psychomotor: Alert Speech: clear, normal rate/rhythm/volume, spontaneous TP: linear TC: preoccupied with pain, stressors, feeling very hopeless, helpless Mood: Anxious dysphoric Affect: irritable, guarded SI: passive HI: none VH/AH: none Delusions: none Insight/judgment: fair x 2. Memory/cog: alert, oriented x 3 Diagnostics Vital Signs (24Hr): Vital Signs - 24 hr 08/07/23 20:46 08/08/23 08:42 Temperature 98 F 97.5 F Pulse Rate 74 67 Respiratory Rate 16 15 Blood Pressure 145/67 H 120/65 Pulse Oximetry 96 95 Oxygen Delivery Method Room Air Room Air BMI result Body Mass Index 25.7 Labs 07/26/23 23:41 08/05/23 17:29 Labs: Laboratory Results - last 48 hr 08/05/23 08/07/23 10:20 14:44 ESR 6 C-Reactive Protein 0.11 ESTUARDO Screen NEGATIVE ESTUARDO Titer TNP ESTUARDO Titer 2 TNP ESTUARDO Titer 3 TNP ESTUARDO Pattern TNP ESTUARDO Pattern 2 TNP ESTUARDO Pattern 3 TNP Medications Medications Current Medications Acetaminophen (Acetaminophen 325 Mg Tablet) 975 mg PO TID PRN PRN Reason: Pain, Moderate(Pain Scale 4-6) Last Admin: 08/06/23 18:19 Dose: 975 mg Al Hydroxide/Mg Hydroxide (Magnesium Hydrox/Alum Hydrox 30 Ml Oral.Susp) 30 ml PO Q6H PRN PRN Reason: Heartburn/Nausea Clonazepam (Clonazepam 1 Mg Tablet) 1 mg PO BEDTIME [facility] Duloxetine HCl (Duloxetine Hcl 60 Mg Capsule.Dr) 60 mg PO DAILY [facility] Last Admin: 08/08/23 08:43 Dose: 60 mg Losartan Potassium (Losartan Potassium 50 Mg Tablet) 50 mg PO BEDTIME [facility]; Protocol Last Admin: 08/07/23 20:59 Dose: 50 mg Magnesium Hydroxide (Milk Of Magnesia 30 Ml Oral.Susp) 30 ml PO DAILY PRN PRN Reason: Constipation Last Admin: 08/06/23 12:11 Dose: 30 ml Magnesium Oxide (Magnesium Oxide 400 Mg Tablet) 400 mg PO BIDPC [facility] Last Admin: 08/08/23 13:35 Dose: 400 mg Naproxen (Naproxen 250 Mg Tablet) 250 mg PO BIDWM [facility] Last Admin: 08/08/23 08:43 Dose: 250 mg Polyethylene Glycol (Polyethylene Glycol 3350 17 Gm Powd.Pack) 17 gm PO DAILY [facility] Last Admin: 08/08/23 13:34 Dose: 17 gm Pregabalin (Pregabalin 50 Mg Capsule) 50 mg PO BID [facility] Last Admin: 08/08/23 13:36 Dose: 50 mg Senna/Docusate Sodium (Sennosides/Docusate Sodium Tablet) 1 tab PO BID [facility] Last Admin: 08/08/23 08:43 Dose: 1 tab Trazodone HCl (Trazodone Hcl 50 Mg Tablet) 150 mg PO BEDTIME [facility] Allergies Allergies Allergy/AdvReac Type Severity Reaction Status Date / Time rosuvastatin [From Crestor] Allergy Mild Dizziness Verified 07/26/23 23:40 sulfacetamide Allergy Mild coma Verified 07/26/23 23:40 [From Sulfacet-R] sulfur [From Sulfacet-R] Allergy Mild coma Verified 07/26/23 23:40 Assessment & Plan Assessment & Plan (1) MDD (major depressive disorder), recurrent episode, moderate: Status: Acute Code(s): F33.1 - Major depressive disorder, recurrent, moderate (2) Generalized anxiety disorder: Status: Acute Code(s): F41.1 - Generalized anxiety disorder (3) Cognitive impairment: Status: Acute Code(s): R41.89 - Other symptoms and signs involving cognitive functions and awareness Plan Mr. Zhou is a 72 year-old male with hx of MDD, feeling of restless which I do suspect may be related to his dx of RLS. He also presents as hopeless and helpless due to multiple stressors including financial, not having as much assistance after divorce and worsening of physical health. We discussed risks, benefits and alternative treatment options. He agreed to stop seroquel as it may be worsening RLS. Try instead clonazepam at bedtime. Once sense of restlessness more undercontrol then will add antidepressant but will suggest either cymbalta or effexor. PLAN 1. Admit to S1, CV, 15 minutes checks for safety 2. continue effexor 37.5mg po daily, will increase in next few days to 75mg po daily. restart lossartan 25mg po daily. pending MOCA/ ACL. continue clonazepam at bedtime but will d/c morning dose due to sedation. 08/01/2023 Will change venlafaxine to duloxetine may eventually have better pain control. Discussed with patient option to increase gabapentin which she did not want to do he is on Seroquel Klonopin at bedtime significant depressive symptoms 08/02/2023 Duloxetine started increase to 30 mg venlafaxine discontinued neuro consult ordered PT consult patient with extreme somatic reaction question somatoform pain disorder try and clarify unclear role for pain management does not want to increase gabapentin complains of side effects 08/03/2019 Continue Cymbalta neuro and PT eval pending would taper gabapentin was not helpful consider Lyrica Tegretol 08/03 increase cymbalta 40mg po daily. pt seen by neurology 08/04 increase cymbalta to 60mg po daily 08/05 dc gabapentin as pt declines to take it as well as ropinirole. start lyrica 25mg po qhs. 08/06 increase lyrica to 50mg po qhs. 08/07 increase lyrica to 50mg po BID. We discussed STOPPING seroquel- as it can worsen RLS which seems difficult to tx and symptoms visible also during the day. Pt explained that other medications are scheduled for sleep which can be adjusted. TRY NOT TO RESTART SEROQUEL for sleep as it may be worsening RLS. miralax added for constipation. Reason for continued inpatient stay Substantial Risk for: inability to function Time Spent With Patient Time: Total time managing care of this patient today ____ minutes.
[2023-08-08 18:00] VITALS: BP 152/70; PULSE 72; RESP 15; TEMP 37.1
[2023-08-08] MEDS: Losartan Potassium 50 MG TABLET PO (21:03)
[2023-08-08] MEDS: traZODone HCL 50 MG TABLET 150 MG PO (21:04)
[2023-08-08] MEDS: clonazePAM 1 MG TABLET PO (21:04)
[2023-08-09 08:36] VITALS: BP 131/68; PULSE 63; RESP 16; TEMP 36.6; O2SAT 95
[2023-08-09] MEDS: Pregabalin 50 MG CAPSULE PO ×2 (08:39→21:23)
[2023-08-09] MEDS: DULoxetine HCl 60 MG CAPSULE.DR PO (08:40)
[2023-08-09] MEDS: Magnesium Oxide 400 MG TABLET PO ×2 (08:40→17:27)
[2023-08-09] MEDS: NaPROXEN 250 MG TABLET PO ×2 (08:40→17:27)
[2023-08-09] MEDS: Sennosides/Docusate Sodium TABLET 1 TAB PO ×2 (08:41→21:23)
[2023-08-09] MEDS: polyethylene glycoL 3350 17 GM POWD.PACK PO (08:41)
--- NOTE | 2023-08-09 08:55 | P.PNPSI_ITS ---
Subjective Subjective Date of Service: 08/09/23 Reason For Visit: Psychosis Interim History: The nursing staff reported the patient was agitated yesterday complained of constipation. He slept on and off. On interview the patient denies new symptoms besides chronic constipation., compliant with medication Mental Status Exam Mental Status Exam Patient Appearance: Appropriate Patient Orientation: Person Level of Consciousness: Awake Patient Behavior: Guarded Mood Description: Withdrawn Affect Description: Constricted Patient Cognition Impaired: Yes Ability to Follow Directions: Good Speech Pattern: Clear Hallucinations: None Delusions: Ideas of Reference Thought Process: Distracted and Slowed Thinking Thought Content: positive for [place] and positive for Poverty of Content Judgement: Poor Diagnostics Vital Signs (24Hr): Vital Signs - 24 hr 08/08/23 18:00 08/09/23 08:36 Temperature 98.7 F 98 F Pulse Rate 72 63 Respiratory Rate 15 16 Blood Pressure 152/70 H 131/68 Pulse Oximetry 95 Oxygen Delivery Method Room Air BMI result Body Mass Index 25.7 Labs 07/26/23 23:41 08/05/23 17:29 Labs: Laboratory Results - last 48 hr 08/05/23 08/07/23 10:20 14:44 ESR 6 C-Reactive Protein 0.11 ESTUARDO Screen NEGATIVE EST[facility]O Titer TNP ESTUARDO Titer 2 TNP ESTUARDO Titer 3 TNP ESTUARDO Pattern TNP ESTUARDO Pattern 2 TNP ESTUARDO Pattern 3 TNP Medications Medications Current Medications Acetaminophen (Acetaminophen 325 Mg Tablet) 975 mg PO TID PRN PRN Reason: Pain, Moderate(Pain Scale 4-6) Last Admin: 08/06/23 18:19 Dose: 975 mg Al Hydroxide/Mg Hydroxide (Magnesium Hydrox/Alum Hydrox 30 Ml Oral.Susp) 30 ml PO Q6H PRN PRN Reason: Heartburn/Nausea Clonazepam (Clonazepam 1 Mg Tablet) 1 mg PO BEDTIME [facility] Last Admin: 08/08/23 21:04 Dose: 1 mg Duloxetine HCl (Duloxetine Hcl 60 Mg Capsule.Dr) 60 mg PO DAILY [facility] Last Admin: 08/09/23 08:40 Dose: 60 mg Losartan Potassium (Losartan Potassium 50 Mg Tablet) 50 mg PO BEDTIME [facility]; Protocol Last Admin: 08/08/23 21:03 Dose: 50 mg Magnesium Hydroxide (Milk Of Magnesia 30 Ml Oral.Susp) 30 ml PO DAILY PRN PRN Reason: Constipation Last Admin: 08/06/23 12:11 Dose: 30 ml Magnesium Oxide (Magnesium Oxide 400 Mg Tablet) 400 mg PO BIDPC [facility] Last Admin: 08/09/23 08:40 Dose: 400 mg Naproxen (Naproxen 250 Mg Tablet) 250 mg PO BIDWM [facility] Last Admin: 08/09/23 08:40 Dose: 250 mg Polyethylene Glycol (Polyethylene Glycol 3350 17 Gm Powd.Pack) 17 gm PO DAILY [facility] Last Admin: 08/09/23 08:41 Dose: 17 gm Pregabalin (Pregabalin 50 Mg Capsule) 50 mg PO BID [facility] Last Admin: 08/09/23 08:39 Dose: 50 mg Senna/Docusate Sodium (Sennosides/Docusate Sodium Tablet) 1 tab PO BID [facility] Last Admin: 08/09/23 08:41 Dose: 1 tab Trazodone HCl (Trazodone Hcl 50 Mg Tablet) 150 mg PO BEDTIME [facility] Last Admin: 08/08/23 21:04 Dose: 150 mg Allergies Allergies Allergy/AdvReac Type Severity Reaction Status Date / Time rosuvastatin [From Crestor] Allergy Mild Dizziness Verified 07/26/23 23:40 sulfacetamide Allergy Mild coma Verified 07/26/23 23:40 [From Sulfacet-R] sulfur [From Sulfacet-R] Allergy Mild coma Verified 07/26/23 23:40 Assessment & Plan Assessment & Plan (1) MDD (major depressive disorder), recurrent episode, moderate: Status: Acute Code(s): F33.1 - Major depressive disorder, recurrent, moderate (2) Generalized anxiety disorder: Status: Acute Code(s): F41.1 - Generalized anxiety disorder (3) Cognitive impairment: Status: Acute Code(s): R41.89 - Other symptoms and signs involving cognitive functions and awareness Plan Mr. Zhou is a 72 year-old male with hx of MDD, feeling of restless which I do suspect may be related to his dx of RLS. He also presents as hopeless and helpless due to multiple stressors including financial, not having as much assistance after divorce and worsening of physical health. We discussed risks, benefits and alternative treatment options. He agreed to stop seroquel as it may be worsening RLS. Try instead clonazepam at bedtime. Once sense of restlessness more undercontrol then will add antidepressant but will suggest either cymbalta or effexor. PLAN 1. Admit to S1, CV, 15 minutes checks for safety 2. continue effexor 37.5mg po daily, will increase in next few days to 75mg po daily. restart lossartan 25mg po daily. pending MOCA/ ACL. continue clonazepam at bedtime but will d/c morning dose due to sedation. 08/01/2023 Will change venlafaxine to duloxetine may eventually have better pain control. Discussed with patient option to increase gabapentin which she did not want to do he is on Seroquel Klonopin at bedtime significant depressive symptoms 08/02/2023 Duloxetine started increase to 30 mg venlafaxine discontinued neuro consult ordered PT consult patient with extreme somatic reaction question somatoform pain disorder try and clarify unclear role for pain management does not want to increase gabapentin complains of side effects 08/03/2019 Continue Cymbalta neuro and PT eval pending would taper gabapentin was not helpful consider Lyrica Tegretol 08/03 increase cymbalta 40mg po daily. pt seen by neurology 08/04 increase cymbalta to 60mg po daily 08/05 dc gabapentin as pt declines to take it as well as ropinirole. start lyrica 25mg po qhs. 08/06 increase lyrica to 50mg po qhs. 08/07 increase lyrica to 50mg po BID. We discussed STOPPING seroquel- as it can worsen RLS which seems difficult to tx and symptoms visible also during the day. Pt explained that other medications are scheduled for sleep which can be adjusted. TRY NOT TO RESTART SEROQUEL for sleep as it may be worsening RLS. miralax added for constipation. 08/08 keep same treatment Reason for continued inpatient stay Substantial Risk for: inability to function, rapid decompensation and med/psych decompensation Time Spent With Patient Time: Total time managing care of this patient today __20__ minutes.
[2023-08-09] MEDS: Acetaminophen 325 MG TABLET 975 MG PO (13:26)
[2023-08-09] MEDS: Milk of Magnesia 30 ML ORAL.SUSP PO ×2 (13:28→21:24)
[2023-08-09 18:00] VITALS: BP 146/73; PULSE 80; RESP 16; TEMP 36.8; O2SAT 95
[2023-08-09] MEDS: traZODone HCL 50 MG TABLET 150 MG PO (21:22)
[2023-08-09] MEDS: Losartan Potassium 50 MG TABLET PO (21:24)
[2023-08-09] MEDS: clonazePAM 1 MG TABLET PO (21:24)
[2023-08-10 08:33] VITALS: BP 142/78; PULSE 68; RESP 17; TEMP 36.1; O2SAT 97
[2023-08-10] MEDS: NaPROXEN 250 MG TABLET PO ×2 (08:35→17:02)
[2023-08-10] MEDS: DULoxetine HCl 60 MG CAPSULE.DR PO (08:35)
[2023-08-10] MEDS: Sennosides/Docusate Sodium TABLET 1 TAB PO ×2 (08:36→21:00)
[2023-08-10] MEDS: polyethylene glycoL 3350 17 GM POWD.PACK PO (08:36)
[2023-08-10] MEDS: Magnesium Oxide 400 MG TABLET PO ×2 (08:36→17:03)
[2023-08-10] MEDS: Pregabalin 50 MG CAPSULE PO ×2 (08:36→21:00)
--- NOTE | 2023-08-10 11:41 | HO.PSYCHPN ---
Subjective Subjective Date of Service: 08/10/23 Reason For Visit: Psychosis Subjective Notes: Conditional Voluntary Interim History: The nursing staff reported the patient complained of constipation but he has small bowel movement. He slept 8 hours. On interview the patient denies new symptoms he is fixated on his bowel regimen. Mental Status Exam Mental Status Exam Patient Appearance: Appropriate Patient Orientation: Person and Situation Level of Consciousness: Awake Patient Behavior: Guarded and Passive Mood Description: Withdrawn Affect Description: Constricted Patient Cognition Impaired: Yes Ability to Follow Directions: Good Speech Pattern: Clear Hallucinations: None Delusions: Ideas of Reference Thought Process: Distracted and Slowed Thinking Thought Content: positive for [place] and positive for Perseveration Judgement: Fair Diagnostics Vital Signs (24Hr): Vital Signs - 24 hr 08/09/23 18:00 08/10/23 08:33 Temperature 98.2 F 96.9 F Pulse Rate 80 68 Respiratory Rate 16 17 Blood Pressure 146/73 H 142/78 H Pulse Oximetry 95 97 Oxygen Delivery Method Room Air Room Air BMI result Body Mass Index 25.7 Labs 07/26/23 23:41 08/05/23 17:29 Medications Medications Current Medications Acetaminophen (Acetaminophen 325 Mg Tablet) 975 mg PO TID PRN PRN Reason: Pain, Moderate(Pain Scale 4-6) Last Admin: 08/09/23 13:26 Dose: 975 mg Al Hydroxide/Mg Hydroxide (Magnesium Hydrox/Alum Hydrox 30 Ml Oral.Susp) 30 ml PO Q6H PRN PRN Reason: Heartburn/Nausea Clonazepam (Clonazepam 1 Mg Tablet) 1 mg PO BEDTIME [facility] Last Admin: 08/09/23 21:24 Dose: 1 mg Duloxetine HCl (Duloxetine Hcl 60 Mg Capsule.Dr) 60 mg PO DAILY [facility] Last Admin: 08/10/23 08:35 Dose: 60 mg Lactulose (Lactulose 20 Gm/30 Ml Solution) 20 gm PO ONCE PRN PRN Reason: Constipation Losartan Potassium (Losartan Potassium 50 Mg Tablet) 50 mg PO BEDTIME [facility]; Protocol Last Admin: 08/09/23 21:24 Dose: 50 mg Magnesium Hydroxide (Milk Of Magnesia 30 Ml Oral.Susp) 30 ml PO DAILY PRN PRN Reason: Constipation Last Admin: 08/09/23 21:24 Dose: 30 ml Magnesium Oxide (Magnesium Oxide 400 Mg Tablet) 400 mg PO BIDPC [facility] Last Admin: 08/10/23 08:36 Dose: 400 mg Naproxen (Naproxen 250 Mg Tablet) 250 mg PO BIDWM [facility] Last Admin: 08/10/23 08:35 Dose: 250 mg Polyethylene Glycol (Polyethylene Glycol 3350 17 Gm Powd.Pack) 17 gm PO DAILY [facility] Last Admin: 08/10/23 08:36 Dose: 17 gm Pregabalin (Pregabalin 50 Mg Capsule) 50 mg PO BID [facility] Last Admin: 08/10/23 08:36 Dose: 50 mg Senna/Docusate Sodium (Sennosides/Docusate Sodium Tablet) 1 tab PO BID [facility] Last Admin: 08/10/23 08:36 Dose: 1 tab Sodium Biphosphate/Sodium Phosphate (Sodium Phosphate,[place]-Dibasic 133 Ml Enema) 133 ml [place] ONCE PRN PRN Reason: Constipation Trazodone HCl (Trazodone Hcl 50 Mg Tablet) 150 mg PO BEDTIME [facility] Last Admin: 08/09/23 21:22 Dose: 50 mg Allergies Allergies Allergy/AdvReac Type Severity Reaction Status Date / Time rosuvastatin [From Crestor] Allergy Mild Dizziness Verified 07/26/23 23:40 sulfacetamide Allergy Mild coma Verified 07/26/23 23:40 [From Sulfacet-R] sulfur [From Sulfacet-R] Allergy Mild coma Verified 07/26/23 23:40 Assessment & Plan Assessment & Plan (1) MDD (major depressive disorder), recurrent episode, moderate: Status: Acute Code(s): F33.1 - Major depressive disorder, recurrent, moderate (2) Generalized anxiety disorder: Status: Acute Code(s): F41.1 - Generalized anxiety disorder (3) Cognitive impairment: Status: Acute Code(s): R41.89 - Other symptoms and signs involving cognitive functions and awareness Plan Mr. Zhou is a 72 year-old male with hx of MDD, feeling of restless which I do suspect may be related to his dx of RLS. He also presents as hopeless and helpless due to multiple stressors including financial, not having as much assistance after divorce and worsening of physical health. We discussed risks, benefits and alternative treatment options. He agreed to stop seroquel as it may be worsening RLS. Try instead clonazepam at bedtime. Once sense of restlessness more undercontrol then will add antidepressant but will suggest either cymbalta or effexor. PLAN 1. Admit to S1, CV, 15 minutes checks for safety 2. continue effexor 37.5mg po daily, will increase in next few days to 75mg po daily. restart lossartan 25mg po daily. pending MOCA/ ACL. continue clonazepam at bedtime but will d/c morning dose due to sedation. 08/01/2023 Will change venlafaxine to duloxetine may eventually have better pain control. Discussed with patient option to increase gabapentin which she did not want to do he is on Seroquel Klonopin at bedtime significant depressive symptoms 08/02/2023 Duloxetine started increase to 30 mg venlafaxine discontinued neuro consult ordered PT consult patient with extreme somatic reaction question somatoform pain disorder try and clarify unclear role for pain management does not want to increase gabapentin complains of side effects 08/03/2019 Continue Cymbalta neuro and PT eval pending would taper gabapentin was not helpful consider Lyrica Tegretol 08/03 increase cymbalta 40mg po daily. pt seen by neurology 08/04 increase cymbalta to 60mg po daily 08/05 dc gabapentin as pt declines to take it as well as ropinirole. start lyrica 25mg po qhs. 08/06 increase lyrica to 50mg po qhs. 08/07 increase lyrica to 50mg po BID. We discussed STOPPING seroquel- as it can worsen RLS which seems difficult to tx and symptoms visible also during the day. Pt explained that other medications are scheduled for sleep which can be adjusted. TRY NOT TO RESTART SEROQUEL for sleep as it may be worsening RLS. miralax added for constipation. 08/08 keep same treatment 08/09 keep same treatment Reason for continued inpatient stay Substantial Risk for: inability to function, rapid decompensation and med/psych decompensation Time Spent With Patient Time: Total time managing care of this patient today __20__ minutes.
[2023-08-10 18:00] VITALS: BP 159/77; PULSE 71; RESP 18; TEMP 36.8; O2SAT 98
[2023-08-10] MEDS: traZODone HCL 50 MG TABLET 150 MG PO (20:59)
[2023-08-10] MEDS: Losartan Potassium 50 MG TABLET PO (20:59)
[2023-08-10] MEDS: clonazePAM 1 MG TABLET PO (20:59)
[2023-08-11 06:00] VITALS: BP 135/63; PULSE 63; RESP 16; TEMP 36.1; O2SAT 97
[2023-08-11] MEDS: Pregabalin 50 MG CAPSULE PO ×2 (08:58→20:14)
[2023-08-11] MEDS: Sennosides/Docusate Sodium TABLET 1 TAB PO ×2 (08:58→20:15)
[2023-08-11] MEDS: Magnesium Oxide 400 MG TABLET PO ×2 (08:59→17:09)
[2023-08-11] MEDS: NaPROXEN 250 MG TABLET PO ×2 (08:59→17:09)
[2023-08-11] MEDS: DULoxetine HCl 60 MG CAPSULE.DR PO (08:59)
[2023-08-11] MEDS: polyethylene glycoL 3350 17 GM POWD.PACK PO (08:59)
--- NOTE | 2023-08-11 09:41 | P.PNPSI_ITS ---
Subjective Subjective Date of Service: 08/11/23 Reason For Visit: Psychosis Subjective Notes: Conditional Voluntary Interim History: Pt reports sleeping better overall. He reports feet continue to have twisting sensation throughout the day. and also feet feel frozen up He reports small BM. He reports he feels tired on the morning- will lowered trazodone to 100mg po qhs. He reports feeling less dizzy when standing up- will recheck ortho VS. In terms of his mood, he states I don't feel depressed, I just don't feel well. Review of Systems Review of Systems Quite depressed. Mental Status Exam Mental Status Exam Narrative: Appearance: Somewhat disheveled Behavior: Cooperative Psychomotor: Alert Speech: clear, normal rate/rhythm/volume, spontaneous TP: linear TC: preoccupied with pain, stressors, feeling very hopeless, helpless Mood: Anxious dysphoric Affect: irritable, guarded SI: passive HI: none VH/AH: none Delusions: none Insight/judgment: fair x 2. Memory/cog: alert, oriented x 3 Diagnostics Vital Signs (24Hr): Vital Signs - 24 hr 08/10/23 18:00 08/11/23 06:00 Temperature 98.2 F 97.0 F Pulse Rate 71 63 Respiratory Rate 18 16 Blood Pressure 159/77 H 135/63 Pulse Oximetry 98 97 Oxygen Delivery Method Room Air Room Air BMI result Body Mass Index 25.7 Labs 07/26/23 23:41 08/05/23 17:29 Medications Medications Current Medications Acetaminophen (Acetaminophen 325 Mg Tablet) 975 mg PO TID PRN PRN Reason: Pain, Moderate(Pain Scale 4-6) Last Admin: 08/09/23 13:26 Dose: 975 mg Al Hydroxide/Mg Hydroxide (Magnesium Hydrox/Alum Hydrox 30 Ml Oral.Susp) 30 ml PO Q6H PRN PRN Reason: Heartburn/Nausea Clonazepam (Clonazepam 1 Mg Tablet) 1 mg PO BEDTIME [facility] Last Admin: 08/10/23 20:59 Dose: 1 mg Duloxetine HCl (Duloxetine Hcl 60 Mg Capsule.Dr) 60 mg PO DAILY [facility] Last Admin: 08/11/23 08:59 Dose: 60 mg Lactulose (Lactulose 20 Gm/30 Ml Solution) 20 gm PO ONCE PRN PRN Reason: Constipation Losartan Potassium (Losartan Potassium 50 Mg Tablet) 50 mg PO BEDTIME [facility]; Protocol Last Admin: 08/10/23 20:59 Dose: 50 mg Magnesium Hydroxide (Milk Of Magnesia 30 Ml Oral.Susp) 30 ml PO DAILY PRN PRN Reason: Constipation Last Admin: 08/09/23 21:24 Dose: 30 ml Magnesium Oxide (Magnesium Oxide 400 Mg Tablet) 400 mg PO BIDPC [facility] Last Admin: 08/11/23 08:59 Dose: 400 mg Naproxen (Naproxen 250 Mg Tablet) 250 mg PO BIDWM [facility] Last Admin: 08/11/23 08:59 Dose: 250 mg Polyethylene Glycol (Polyethylene Glycol 3350 17 Gm Powd.Pack) 17 gm PO DAILY [facility] Last Admin: 08/11/23 08:59 Dose: 17 gm Pregabalin (Pregabalin 50 Mg Capsule) 50 mg PO BID [facility] Last Admin: 08/11/23 08:58 Dose: 50 mg Senna/Docusate Sodium (Sennosides/Docusate Sodium Tablet) 1 tab PO BID [facility] Last Admin: 08/11/23 08:58 Dose: 1 tab Sodium Biphosphate/Sodium Phosphate (Sodium Phosphate,[place]-Dibasic 133 Ml Enema) 133 ml [place] ONCE PRN PRN Reason: Constipation Trazodone HCl (Trazodone Hcl 50 Mg Tablet) 150 mg PO BEDTIME [facility] Last Admin: 08/10/23 20:59 Dose: 150 mg Allergies Allergies Allergy/AdvReac Type Severity Reaction Status Date / Time rosuvastatin [From Crestor] Allergy Mild Dizziness Verified 07/26/23 23:40 sulfacetamide Allergy Mild coma Verified 07/26/23 23:40 [From Sulfacet-R] sulfur [From Sulfacet-R] Allergy Mild coma Verified 07/26/23 23:40 Assessment & Plan Assessment & Plan (1) MDD (major depressive disorder), recurrent episode, moderate: Status: Acute Code(s): F33.1 - Major depressive disorder, recurrent, moderate (2) Generalized anxiety disorder: Status: Acute Code(s): F41.1 - Generalized anxiety disorder (3) Cognitive impairment: Status: Acute Code(s): R41.89 - Other symptoms and signs involving cognitive functions and awareness Plan Mr. Zhou is a 72 year-old male with hx of MDD, feeling of restless which I do suspect may be related to his dx of RLS. He also presents as hopeless and helpless due to multiple stressors including financial, not having as much assistance after divorce and worsening of physical health. We discussed risks, benefits and alternative treatment options. He agreed to stop seroquel as it may be worsening RLS. Try instead clonazepam at bedtime. Once sense of restlessness more undercontrol then will add antidepressant but will suggest either cymbalta or effexor. PLAN 1. Admit to S1, CV, 15 minutes checks for safety 2. continue effexor 37.5mg po daily, will increase in next few days to 75mg po daily. restart lossartan 25mg po daily. pending MOCA/ ACL. continue clonazepam at bedtime but will d/c morning dose due to sedation. 08/01/2023 Will change venlafaxine to duloxetine may eventually have better pain control. Discussed with patient option to increase gabapentin which she did not want to do he is on Seroquel Klonopin at bedtime significant depressive symptoms 08/02/2023 Duloxetine started increase to 30 mg venlafaxine discontinued neuro consult ordered PT consult patient with extreme somatic reaction question somatoform pain disorder try and clarify unclear role for pain management does not want to increase gabapentin complains of side effects 08/03/2019 Continue Cymbalta neuro and PT eval pending would taper gabapentin was not helpful consider Lyrica Tegretol 08/03 increase cymbalta 40mg po daily. pt seen by neurology 08/04 increase cymbalta to 60mg po daily 08/05 dc gabapentin as pt declines to take it as well as ropinirole. start lyrica 25mg po qhs. 08/06 increase lyrica to 50mg po qhs. 08/07 increase lyrica to 50mg po BID. We discussed STOPPING seroquel- as it can worsen RLS which seems difficult to tx and symptoms visible also during the day. Pt explained that other medications are scheduled for sleep which can be adjusted. TRY NOT TO RESTART SEROQUEL for sleep as it may be worsening RLS. miralax added for constipation. 08/08 keep same treatment 08/09 keep same treatment 08/10 continue tx. lower trazodone from 150mg po qhs to 100mg po qhs. Reason for continued inpatient stay Substantial Risk for: inability to function Time Spent With Patient Time: Total time managing care of this patient today ____ minutes.
--- NOTE | 2023-08-11 14:56 | PC.NURSE ---
Patient declined PT this shift stating, why can't they come back later?
[2023-08-11] MEDS: Losartan Potassium 50 MG TABLET PO (20:15)
[2023-08-11] MEDS: traZODone HCL 100 MG TABLET PO (20:16)
[2023-08-11] MEDS: clonazePAM 1 MG TABLET PO (20:16)
[2023-08-11 20:19] VITALS: BP 140/75; PULSE 64; RESP 18; TEMP 36.8; O2SAT 95
[2023-08-12 08:00] VITALS: BP 142/73; PULSE 62; RESP 18; TEMP 36; O2SAT 98
[2023-08-12] MEDS: Pregabalin 50 MG CAPSULE PO ×2 (08:55→20:41)
[2023-08-12] MEDS: DULoxetine HCl 60 MG CAPSULE.DR PO (08:55)
[2023-08-12] MEDS: Magnesium Oxide 400 MG TABLET PO ×2 (08:55→17:03)
[2023-08-12] MEDS: NaPROXEN 250 MG TABLET PO ×2 (08:55→17:03)
[2023-08-12] MEDS: Sennosides/Docusate Sodium TABLET 1 TAB PO ×2 (08:55→20:42)
--- NOTE | 2023-08-12 09:03 | P.PNPSI_ITS ---
Subjective Subjective Date of Service: 08/12/23 Reason For Visit: Psychosis Subjective Notes: Conditional Voluntary Interim History: Pt reports sleeping better. He reports feet continue to bother him- pin and needle sensation. He does report going out and walking more. He is eating better as well. We discussed cognitive impairments and decline seen in assessment done while on the unit. Pt denies SI/HI. constipation has resolved, he reports some loose stools. We discussed increasing cymbalta to 90mg po daily. Review of Systems Review of Systems Quite depressed. Diagnostics Vital Signs (24Hr): Vital Signs - 24 hr 08/11/23 20:19 Temperature 98.3 F Pulse Rate 64 Respiratory Rate 18 Blood Pressure 140/75 H Pulse Oximetry 95 Oxygen Delivery Method Room Air BMI result Body Mass Index 25.7 Labs 07/26/23 23:41 08/05/23 17:29 Medications Medications Current Medications Acetaminophen (Acetaminophen 325 Mg Tablet) 975 mg PO TID PRN PRN Reason: Pain, Moderate(Pain Scale 4-6) Last Admin: 08/09/23 13:26 Dose: 975 mg Al Hydroxide/Mg Hydroxide (Magnesium Hydrox/Alum Hydrox 30 Ml Oral.Susp) 30 ml PO Q6H PRN PRN Reason: Heartburn/Nausea Clonazepam (Clonazepam 1 Mg Tablet) 1 mg PO BEDTIME [facility] Last Admin: 08/11/23 20:16 Dose: 1 mg Duloxetine HCl (Duloxetine Hcl 60 Mg Capsule.Dr) 60 mg PO DAILY [facility] Last Admin: 08/12/23 08:55 Dose: 60 mg Lactulose (Lactulose 20 Gm/30 Ml Solution) 20 gm PO ONCE PRN PRN Reason: Constipation Losartan Potassium (Losartan Potassium 50 Mg Tablet) 50 mg PO BEDTIME [facility]; Protocol Last Admin: 08/11/23 20:15 Dose: 50 mg Magnesium Hydroxide (Milk Of Magnesia 30 Ml Oral.Susp) 30 ml PO DAILY PRN PRN Reason: Constipation Last Admin: 08/09/23 21:24 Dose: 30 ml Magnesium Oxide (Magnesium Oxide 400 Mg Tablet) 400 mg PO BIDPC [facility] Last Admin: 08/12/23 08:55 Dose: 400 mg Naproxen (Naproxen 250 Mg Tablet) 250 mg PO BIDWM [facility] Last Admin: 08/12/23 08:55 Dose: 250 mg Polyethylene Glycol (Polyethylene Glycol 3350 17 Gm Powd.Pack) 17 gm PO DAILY [facility] Last Admin: 08/12/23 08:59 Dose: Not Given Pregabalin (Pregabalin 50 Mg Capsule) 50 mg PO BID [facility] Last Admin: 08/12/23 08:55 Dose: 50 mg Senna/Docusate Sodium (Sennosides/Docusate Sodium Tablet) 1 tab PO BID [facility] Last Admin: 08/12/23 08:55 Dose: 1 tab Sodium Biphosphate/Sodium Phosphate (Sodium Phosphate,[place]-Dibasic 133 Ml Enema) 133 ml [place] ONCE PRN PRN Reason: Constipation Trazodone HCl (Trazodone Hcl 100 Mg Tablet) 100 mg PO BEDTIME [facility] Last Admin: 08/11/23 20:16 Dose: 100 mg Allergies Allergies Allergy/AdvReac Type Severity Reaction Status Date / Time rosuvastatin [From Crestor] Allergy Mild Dizziness Verified 07/26/23 23:40 sulfacetamide Allergy Mild coma Verified 07/26/23 23:40 [From Sulfacet-R] sulfur [From Sulfacet-R] Allergy Mild coma Verified 07/26/23 23:40 Assessment & Plan Assessment & Plan (1) MDD (major depressive disorder), recurrent episode, moderate: Status: Acute Code(s): F33.1 - Major depressive disorder, recurrent, moderate (2) Generalized anxiety disorder: Status: Acute Code(s): F41.1 - Generalized anxiety disorder (3) Cognitive impairment: Status: Acute Code(s): R41.89 - Other symptoms and signs involving cognitive functions and awareness Plan Mr. Zhou is a 72 year-old male with hx of MDD, feeling of restless which I do suspect may be related to his dx of RLS. He also presents as hopeless and helpless due to multiple stressors including financial, not having as much assistance after divorce and worsening of physical health. We discussed risks, benefits and alternative treatment options. He agreed to stop seroquel as it may be worsening RLS. Try instead clonazepam at bedtime. Once sense of restlessness more undercontrol then will add antidepressant but will suggest either cymbalta or effexor. PLAN 1. Admit to S1, CV, 15 minutes checks for safety 2. continue effexor 37.5mg po daily, will increase in next few days to 75mg po daily. restart lossartan 25mg po daily. pending MOCA/ ACL. continue clonazepam at bedtime but will d/c morning dose due to sedation. 08/01/2023 Will change venlafaxine to duloxetine may eventually have better pain control. Discussed with patient option to increase gabapentin which she did not want to do he is on Seroquel Klonopin at bedtime significant depressive symptoms 08/02/2023 Duloxetine started increase to 30 mg venlafaxine discontinued neuro consult ordered PT consult patient with extreme somatic reaction question somatoform pain disorder try and clarify unclear role for pain management does not want to increase gabapentin complains of side effects 08/03/2019 Continue Cymbalta neuro and PT eval pending would taper gabapentin was not helpful consider Lyrica Tegretol 08/03 increase cymbalta 40mg po daily. pt seen by neurology 08/04 increase cymbalta to 60mg po daily 08/05 dc gabapentin as pt declines to take it as well as ropinirole. start lyrica 25mg po qhs. 08/06 increase lyrica to 50mg po qhs. 08/07 increase lyrica to 50mg po BID. We discussed STOPPING seroquel- as it can worsen RLS which seems difficult to tx and symptoms visible also during the day. Pt explained that other medications are scheduled for sleep which can be adjusted. TRY NOT TO RESTART SEROQUEL for sleep as it may be worsening RLS. miralax added for constipation. 08/08 keep same treatment 08/09 keep same treatment 08/10 continue tx. lower trazodone from 150mg po qhs to 100mg po qhs. 08/11 increase cymbalta to 90mg po daily. Reason for continued inpatient stay Substantial Risk for: inability to function Time Spent With Patient Time: Total time managing care of this patient today ____ minutes.
[2023-08-12 20:30] VITALS: BP 162/79; PULSE 66; RESP 18; TEMP 36.6; O2SAT 96
[2023-08-12] MEDS: Losartan Potassium 50 MG TABLET PO (20:41)
[2023-08-12] MEDS: traZODone HCL 100 MG TABLET PO (20:41)
[2023-08-12] MEDS: clonazePAM 1 MG TABLET PO (20:41)
[2023-08-13 08:00] VITALS: BP 144/79; PULSE 60; RESP 18; TEMP 36.1; O2SAT 98
--- NOTE | 2023-08-13 08:11 | HO.PSYCHPN ---
Subjective Subjective Date of Service: 08/13/23 Reason For Visit: Psychosis Subjective Notes: Conditional Voluntary Interim History: Pt reports sleeping better. He has perla slightly more visible. He reports loose stools. will give loperamide. No SI/HI. No overt delusions or psychosis. He reports intermittent twisting of feet. Review of Systems Review of Systems Quite depressed. Mental Status Exam Mental Status Exam Narrative: Appearance: Somewhat disheveled Behavior: Cooperative Psychomotor: Alert Speech: clear, normal rate/rhythm/volume, spontaneous TP: linear TC: preoccupied with pain, stressors, feeling very hopeless, helpless Mood: Anxious dysphoric Affect: irritable, guarded SI: passive HI: none VH/AH: none Delusions: none Insight/judgment: fair x 2. Memory/cog: alert, oriented x 3 Diagnostics Vital Signs (24Hr): Vital Signs - 24 hr 08/12/23 20:30 Temperature 98 F Pulse Rate 66 Respiratory Rate 18 Blood Pressure 162/79 H Pulse Oximetry 96 Oxygen Delivery Method Room Air BMI result Body Mass Index 25.7 Labs 07/26/23 23:41 08/05/23 17:29 Imaging Radiology Impressions: ITS Impressions [facility] X-Ray 08/07/23 15:28 IMPRESSION: Mild to moderate stool burden. No evidence of bowel obstruction. Medications Medications Current Medications Acetaminophen (Acetaminophen 325 Mg Tablet) 975 mg PO TID PRN PRN Reason: Pain, Moderate(Pain Scale 4-6) Last Admin: 08/09/23 13:26 Dose: 975 mg Al Hydroxide/Mg Hydroxide (Magnesium Hydrox/Alum Hydrox 30 Ml Oral.Susp) 30 ml PO Q6H PRN PRN Reason: Heartburn/Nausea Clonazepam (Clonazepam 1 Mg Tablet) 1 mg PO BEDTIME [facility] Last Admin: 08/12/23 20:41 Dose: 1 mg Duloxetine HCl (Duloxetine Hcl 60 Mg Capsule.Dr) 60 mg PO DAILY [facility] Last Admin: 08/12/23 08:55 Dose: 60 mg Lactulose (Lactulose 20 Gm/30 Ml Solution) 20 gm PO ONCE PRN PRN Reason: Constipation Losartan Potassium (Losartan Potassium 50 Mg Tablet) 50 mg PO BEDTIME [facility]; Protocol Last Admin: 08/12/23 20:41 Dose: 50 mg Magnesium Hydroxide (Milk Of Magnesia 30 Ml Oral.Susp) 30 ml PO DAILY PRN PRN Reason: Constipation Last Admin: 08/09/23 21:24 Dose: 30 ml Magnesium Oxide (Magnesium Oxide 400 Mg Tablet) 400 mg PO BIDPC [facility] Last Admin: 08/12/23 17:03 Dose: 400 mg Naproxen (Naproxen 250 Mg Tablet) 250 mg PO BIDWM [facility] Last Admin: 08/12/23 17:03 Dose: 250 mg Polyethylene Glycol (Polyethylene Glycol 3350 17 Gm Powd.Pack) 17 gm PO DAILY [facility] Last Admin: 08/12/23 08:59 Dose: Not Given Pregabalin (Pregabalin 50 Mg Capsule) 50 mg PO BID [facility] Last Admin: 08/12/23 20:41 Dose: 50 mg Senna/Docusate Sodium (Sennosides/Docusate Sodium Tablet) 1 tab PO BID [facility] Last Admin: 08/12/23 20:42 Dose: 1 tab Sodium Biphosphate/Sodium Phosphate (Sodium Phosphate,Cowley-Dibasic 133 Ml Enema) 133 ml TX ONCE PRN PRN Reason: Constipation Trazodone HCl (Trazodone Hcl 100 Mg Tablet) 100 mg PO BEDTIME [facility] Last Admin: 08/12/23 20:41 Dose: 100 mg Allergies Allergies Allergy/AdvReac Type Severity Reaction Status Date / Time rosuvastatin [From Crestor] Allergy Mild Dizziness Verified 07/26/23 23:40 sulfacetamide Allergy Mild coma Verified 07/26/23 23:40 [From Sulfacet-R] sulfur [From Sulfacet-R] Allergy Mild coma Verified 07/26/23 23:40 Assessment & Plan Assessment & Plan (1) MDD (major depressive disorder), recurrent episode, moderate: Status: Acute Code(s): F33.1 - Major depressive disorder, recurrent, moderate (2) Generalized anxiety disorder: Status: Acute Code(s): F41.1 - Generalized anxiety disorder (3) Cognitive impairment: Status: Acute Code(s): R41.89 - Other symptoms and signs involving cognitive functions and awareness Plan Mr. Zhou is a 72 year-old male with hx of MDD, feeling of restless which I do suspect may be related to his dx of RLS. He also presents as hopeless and helpless due to multiple stressors including financial, not having as much assistance after divorce and worsening of physical health. We discussed risks, benefits and alternative treatment options. He agreed to stop seroquel as it may be worsening RLS. Try instead clonazepam at bedtime. Once sense of restlessness more undercontrol then will add antidepressant but will suggest either cymbalta or effexor. PLAN 1. Admit to S1, CV, 15 minutes checks for safety 2. continue effexor 37.5mg po daily, will increase in next few days to 75mg po daily. restart lossartan 25mg po daily. pending MOCA/ ACL. continue clonazepam at bedtime but will d/c morning dose due to sedation. 08/01/2023 Will change venlafaxine to duloxetine may eventually have better pain control. Discussed with patient option to increase gabapentin which she did not want to do he is on Seroquel Klonopin at bedtime significant depressive symptoms 08/02/2023 Duloxetine started increase to 30 mg venlafaxine discontinued neuro consult ordered PT consult patient with extreme somatic reaction question somatoform pain disorder try and clarify unclear role for pain management does not want to increase gabapentin complains of side effects 08/03/2019 Continue Cymbalta neuro and PT eval pending would taper gabapentin was not helpful consider Lyrica Tegretol 08/03 increase cymbalta 40mg po daily. pt seen by neurology 08/04 increase cymbalta to 60mg po daily 08/05 dc gabapentin as pt declines to take it as well as ropinirole. start lyrica 25mg po qhs. 08/06 increase lyrica to 50mg po qhs. 08/07 increase lyrica to 50mg po BID. We discussed STOPPING seroquel- as it can worsen RLS which seems difficult to tx and symptoms visible also during the day. Pt explained that other medications are scheduled for sleep which can be adjusted. TRY NOT TO RESTART SEROQUEL for sleep as it may be worsening RLS. miralax added for constipation. 08/08 keep same treatment 08/09 keep same treatment 08/10 continue tx. lower trazodone from 150mg po qhs to 100mg po qhs. 08/11 increase cymbalta to 90mg po daily. 08/12 continue tx. Reason for continued inpatient stay Substantial Risk for: inability to function Time Spent With Patient Time: Total time managing care of this patient today ____ minutes.
[2023-08-13] MEDS: NaPROXEN 250 MG TABLET PO ×2 (08:17→16:58)
[2023-08-13] MEDS: Sennosides/Docusate Sodium TABLET 1 TAB PO ×2 (08:17→20:26)
[2023-08-13] MEDS: Pregabalin 50 MG CAPSULE PO ×2 (08:17→20:25)
[2023-08-13] MEDS: DULoxetine HCl 60 MG CAPSULE.DR PO (08:18)
[2023-08-13] MEDS: Magnesium Oxide 400 MG TABLET PO ×2 (08:18→16:58)
[2023-08-13 18:00] VITALS: BP 134/74; PULSE 70; RESP 16; TEMP 36.7; O2SAT 96
[2023-08-13] MEDS: traZODone HCL 100 MG TABLET PO (20:24)
[2023-08-13] MEDS: clonazePAM 1 MG TABLET PO (20:25)
[2023-08-13] MEDS: Losartan Potassium 50 MG TABLET PO (20:26)
[2023-08-14 07:00] VITALS: BMI 26.5
[2023-08-14] MEDS: DULoxetine HCl 30 MG CAPSULE.DR 90 MG PO (08:02)
[2023-08-14] MEDS: NaPROXEN 250 MG TABLET PO ×2 (08:03→17:26)
[2023-08-14] MEDS: Magnesium Oxide 400 MG TABLET PO ×2 (08:03→17:26)
[2023-08-14] MEDS: Sennosides/Docusate Sodium TABLET 1 TAB PO ×2 (08:03→21:01)
[2023-08-14] MEDS: Pregabalin 50 MG CAPSULE PO ×2 (08:03→21:01)
[2023-08-14 08:20] VITALS: BP 135/62; PULSE 62; RESP 18; TEMP 36.6; O2SAT 95
--- NOTE | 2023-08-14 11:55 | HO.PSYCHPN ---
Subjective Subjective Date of Service: 08/14/23 Reason For Visit: Psychosis Subjective Notes: Conditional Voluntary Interim History: Pt slept through the night. he reports one episode of loose stool this morning but when offered loperamide, he declined stating he is fearful he will be constipated again- however, KUB showed mild constipation when he was reporting several days of constipation and discomfort. He denies SI/HI. He reports mood a bit better. He is concern about his physical health. He is thinking about [facility]. Review of Systems Review of Systems Quite depressed. Mental Status Exam Mental Status Exam Narrative: Appearance: Somewhat disheveled Behavior: Cooperative Psychomotor: Alert Speech: clear, normal rate/rhythm/volume, spontaneous TP: linear TC: preoccupied with pain, stressors, feeling very hopeless, helpless Mood: Anxious dysphoric Affect: irritable, guarded SI: passive HI: none VH/AH: none Delusions: none Insight/judgment: fair x 2. Memory/cog: alert, oriented x 3 Diagnostics Vital Signs (24Hr): Vital Signs - 24 hr 08/13/23 18:00 08/14/23 08:20 Temperature 98.1 F 97.8 F Pulse Rate 70 62 Respiratory Rate 16 18 Blood Pressure 134/74 135/62 Pulse Oximetry 96 95 Oxygen Delivery Method Room Air Room Air BMI result Body Mass Index 25.7 Labs 07/26/23 23:41 08/05/23 17:29 Imaging Radiology Impressions: ITS Impressions [facility] X-Ray 08/07/23 15:28 IMPRESSION: Mild to moderate stool burden. No evidence of bowel obstruction. Medications Medications Current Medications Acetaminophen (Acetaminophen 325 Mg Tablet) 975 mg PO TID PRN PRN Reason: Pain, Moderate(Pain Scale 4-6) Last Admin: 08/09/23 13:26 Dose: 975 mg Al Hydroxide/Mg Hydroxide (Magnesium Hydrox/Alum Hydrox 30 Ml Oral.Susp) 30 ml PO Q6H PRN PRN Reason: Heartburn/Nausea Clonazepam (Clonazepam 1 Mg Tablet) 1 mg PO BEDTIME [facility] Last Admin: 08/13/23 20:25 Dose: 1 mg Duloxetine HCl (Duloxetine Hcl 30 Mg Capsule.Dr) 90 mg PO DAILY [facility] Last Admin: 08/14/23 08:02 Dose: 90 mg Loperamide HCl (Loperamide Hcl 2 Mg Capsule) 2 mg PO Q6H PRN PRN Reason: loose stool Losartan Potassium (Losartan Potassium 50 Mg Tablet) 50 mg PO BEDTIME [facility]; Protocol Last Admin: 08/13/23 20:26 Dose: 50 mg Magnesium Hydroxide (Milk Of Magnesia 30 Ml Oral.Susp) 30 ml PO DAILY PRN PRN Reason: Constipation Last Admin: 08/09/23 21:24 Dose: 30 ml Magnesium Oxide (Magnesium Oxide 400 Mg Tablet) 400 mg PO BIDPC [facility] Last Admin: 08/14/23 08:03 Dose: 400 mg Naproxen (Naproxen 250 Mg Tablet) 250 mg PO BIDWM [facility] Last Admin: 08/14/23 08:03 Dose: 250 mg Polyethylene Glycol (Polyethylene Glycol 3350 17 Gm Powd.Pack) 17 gm PO DAILY PRN PRN Reason: constipation Pregabalin (Pregabalin 50 Mg Capsule) 50 mg PO BID [facility] Last Admin: 08/14/23 08:03 Dose: 50 mg Senna/Docusate Sodium (Sennosides/Docusate Sodium Tablet) 1 tab PO BID [facility] Last Admin: 08/14/23 08:03 Dose: 1 tab Trazodone HCl (Trazodone Hcl 100 Mg Tablet) 100 mg PO BEDTIME [facility] Last Admin: 08/13/23 20:24 Dose: 100 mg Allergies Allergies Allergy/AdvReac Type Severity Reaction Status Date / Time rosuvastatin [From Crestor] Allergy Mild Dizziness Verified 07/26/23 23:40 sulfacetamide Allergy Mild coma Verified 07/26/23 23:40 [From Sulfacet-R] sulfur [From Sulfacet-R] Allergy Mild coma Verified 07/26/23 23:40 Assessment & Plan Assessment & Plan (1) MDD (major depressive disorder), recurrent episode, moderate: Status: Acute Code(s): F33.1 - Major depressive disorder, recurrent, moderate (2) Generalized anxiety disorder: Status: Acute Code(s): F41.1 - Generalized anxiety disorder (3) Cognitive impairment: Status: Acute Code(s): R41.89 - Other symptoms and signs involving cognitive functions and awareness Plan Mr. Zhou is a 72 year-old male with hx of MDD, feeling of restless which I do suspect may be related to his dx of RLS. He also presents as hopeless and helpless due to multiple stressors including financial, not having as much assistance after divorce and worsening of physical health. We discussed risks, benefits and alternative treatment options. He agreed to stop seroquel as it may be worsening RLS. Try instead clonazepam at bedtime. Once sense of restlessness more undercontrol then will add antidepressant but will suggest either cymbalta or effexor. PLAN 1. Admit to S1, CV, 15 minutes checks for safety 2. continue effexor 37.5mg po daily, will increase in next few days to 75mg po daily. restart lossartan 25mg po daily. pending MOCA/ ACL. continue clonazepam at bedtime but will d/c morning dose due to sedation. 08/01/2023 Will change venlafaxine to duloxetine may eventually have better pain control. Discussed with patient option to increase gabapentin which she did not want to do he is on Seroquel Klonopin at bedtime significant depressive symptoms 08/02/2023 Duloxetine started increase to 30 mg venlafaxine discontinued neuro consult ordered PT consult patient with extreme somatic reaction question somatoform pain disorder try and clarify unclear role for pain management does not want to increase gabapentin complains of side effects 08/03/2019 Continue Cymbalta neuro and PT eval pending would taper gabapentin was not helpful consider Lyrica Tegretol 08/03 increase cymbalta 40mg po daily. pt seen by neurology 08/04 increase cymbalta to 60mg po daily 08/05 dc gabapentin as pt declines to take it as well as ropinirole. start lyrica 25mg po qhs. 08/06 increase lyrica to 50mg po qhs. 08/07 increase lyrica to 50mg po BID. We discussed STOPPING seroquel- as it can worsen RLS which seems difficult to tx and symptoms visible also during the day. Pt explained that other medications are scheduled for sleep which can be adjusted. TRY NOT TO RESTART SEROQUEL for sleep as it may be worsening RLS. miralax added for constipation. 08/08 keep same treatment 08/09 keep same treatment 08/10 continue tx. lower trazodone from 150mg po qhs to 100mg po qhs. 08/11 increase cymbalta to 90mg po daily. 08/12 continue tx. 08/13 continue tx. Reason for continued inpatient stay Substantial Risk for: inability to function Time Spent With Patient Time: Total time managing care of this patient today ____ minutes.
[2023-08-14 18:00] VITALS: BP 176/82; PULSE 67; RESP 18; TEMP 36.6; O2SAT 95
[2023-08-14] MEDS: Losartan Potassium 50 MG TABLET PO (21:00)
[2023-08-14] MEDS: clonazePAM 1 MG TABLET PO (21:00)
[2023-08-14] MEDS: traZODone HCL 100 MG TABLET PO (21:01)
[2023-08-14] MEDS: Acetaminophen 325 MG TABLET 975 MG PO (21:01)
[2023-08-15 06:00] VITALS: BP 140/73; PULSE 65; RESP 18; TEMP 36.3; O2SAT 97
[2023-08-15] MEDS: DULoxetine HCl 30 MG CAPSULE.DR 90 MG PO (09:09)
[2023-08-15] MEDS: NaPROXEN 250 MG TABLET PO ×2 (09:09→16:07)
[2023-08-15] MEDS: Pregabalin 50 MG CAPSULE PO ×2 (09:09→21:54)
[2023-08-15] MEDS: Sennosides/Docusate Sodium TABLET 1 TAB PO ×2 (09:09→21:54)
[2023-08-15] MEDS: Magnesium Oxide 400 MG TABLET PO ×2 (09:10→16:07)
--- NOTE | 2023-08-15 12:26 | HO.PSYCHPN ---
Subjective Subjective Date of Service: 08/15/23 Reason For Visit: Psychosis Interim History: Pt slept through the night. he discomfort; He denies SI/HI. He reports mood a bit better. He is concern about his physical health. He is thinking about [facility]. Medication Compliance: Yes Side effects from medications: No Attending Groups: Intermittent Review of Systems Acute medical concerns: No Medical Review of Systems: unchanged Review of Systems Review of Systems Quite depressed. Mental Status Exam Mental Status Exam Narrative: Appearance: Somewhat disheveled Behavior: Cooperative Psychomotor: Alert Speech: clear, normal rate/rhythm/volume, spontaneous TP: linear TC: preoccupied with pain, stressors, feeling very hopeless, helpless Mood: Anxious dysphoric Affect: irritable, guarded SI: passive HI: none VH/AH: none Delusions: none Insight/judgment: fair x 2. Memory/cog: alert, oriented x 3 Patient Appearance: Appropriate Patient Orientation: Person and Situation Level of Consciousness: Awake Patient Behavior: Guarded and Passive Mood Description: Withdrawn Affect Description: Constricted Patient Cognition Impaired: Yes Ability to Follow Directions: Good Speech Pattern: Clear Diagnostics Vital Signs (24Hr): Vital Signs - 24 hr 08/14/23 18:00 08/15/23 06:00 Temperature 97.9 F 97.3 F Pulse Rate 67 65 Respiratory Rate 18 18 Blood Pressure 176/82 H 140/73 H Pulse Oximetry 95 97 Oxygen Delivery Method Room Air Room Air BMI result Body Mass Index 26.5 Labs 07/26/23 23:41 08/05/23 17:29 Imaging Radiology Impressions: ITS Impressions [facility] X-Ray 08/07/23 15:28 IMPRESSION: Mild to moderate stool burden. No evidence of bowel obstruction. Medications Medications Current Medications Acetaminophen (Acetaminophen 325 Mg Tablet) 975 mg PO TID PRN PRN Reason: Pain, Moderate(Pain Scale 4-6) Last Admin: 08/14/23 21:01 Dose: 975 mg Al Hydroxide/Mg Hydroxide (Magnesium Hydrox/Alum Hydrox 30 Ml Oral.Susp) 30 ml PO Q6H PRN PRN Reason: Heartburn/Nausea Clonazepam (Clonazepam 1 Mg Tablet) 1 mg PO BEDTIME [facility] Last Admin: 08/14/23 21:00 Dose: 1 mg Duloxetine HCl (Duloxetine Hcl 30 Mg Capsule.Dr) 90 mg PO DAILY [facility] Last Admin: 08/15/23 09:09 Dose: 90 mg Loperamide HCl (Loperamide Hcl 2 Mg Capsule) 2 mg PO Q6H PRN PRN Reason: loose stool Losartan Potassium (Losartan Potassium 50 Mg Tablet) 50 mg PO BEDTIME [facility]; Protocol Last Admin: 08/14/23 21:00 Dose: 50 mg Magnesium Hydroxide (Milk Of Magnesia 30 Ml Oral.Susp) 30 ml PO DAILY PRN PRN Reason: Constipation Last Admin: 08/09/23 21:24 Dose: 30 ml Magnesium Oxide (Magnesium Oxide 400 Mg Tablet) 400 mg PO BIDPC [facility] Last Admin: 08/15/23 09:10 Dose: 400 mg Naproxen (Naproxen 250 Mg Tablet) 250 mg PO BIDWM [facility] Last Admin: 08/15/23 09:09 Dose: 250 mg Polyethylene Glycol (Polyethylene Glycol 3350 17 Gm Powd.Pack) 17 gm PO DAILY PRN PRN Reason: constipation Pregabalin (Pregabalin 50 Mg Capsule) 50 mg PO BID [facility] Last Admin: 08/15/23 09:09 Dose: 50 mg Senna/Docusate Sodium (Sennosides/Docusate Sodium Tablet) 1 tab PO BID [facility] Last Admin: 08/15/23 09:09 Dose: 1 tab Trazodone HCl (Trazodone Hcl 100 Mg Tablet) 100 mg PO BEDTIME [facility] Last Admin: 08/14/23 21:01 Dose: 100 mg Allergies Allergies Allergy/AdvReac Type Severity Reaction Status Date / Time rosuvastatin [From Crestor] Allergy Mild Dizziness Verified 07/26/23 23:40 sulfacetamide Allergy Mild coma Verified 07/26/23 23:40 [From Sulfacet-R] sulfur [From Sulfacet-R] Allergy Mild coma Verified 07/26/23 23:40 Assessment & Plan Assessment & Plan (1) MDD (major depressive disorder), recurrent episode, moderate: Status: Acute Code(s): F33.1 - Major depressive disorder, recurrent, moderate (2) Generalized anxiety disorder: Status: Acute Code(s): F41.1 - Generalized anxiety disorder (3) Cognitive impairment: Status: Acute Code(s): R41.89 - Other symptoms and signs involving cognitive functions and awareness Plan Mr. Zhou is a 72 year-old male with hx of MDD, feeling of restless which I do suspect may be related to his dx of RLS. He also presents as hopeless and helpless due to multiple stressors including financial, not having as much assistance after divorce and worsening of physical health. We discussed risks, benefits and alternative treatment options. He agreed to stop seroquel as it may be worsening RLS. Try instead clonazepam at bedtime. Once sense of restlessness more undercontrol then will add antidepressant but will suggest either cymbalta or effexor. PLAN 1. Admit to S1, CV, 15 minutes checks for safety 2. continue effexor 37.5mg po daily, will increase in next few days to 75mg po daily. restart lossartan 25mg po daily. pending MOCA/ ACL. continue clonazepam at bedtime but will d/c morning dose due to sedation. 08/01/2023 Will change venlafaxine to duloxetine may eventually have better pain control. Discussed with patient option to increase gabapentin which she did not want to do he is on Seroquel Klonopin at bedtime significant depressive symptoms 08/02/2023 Duloxetine started increase to 30 mg venlafaxine discontinued neuro consult ordered PT consult patient with extreme somatic reaction question somatoform pain disorder try and clarify unclear role for pain management does not want to increase gabapentin complains of side effects 08/03/2019 Continue Cymbalta neuro and PT eval pending would taper gabapentin was not helpful consider Lyrica Tegretol 08/03 increase cymbalta 40mg po daily. pt seen by neurology 08/04 increase cymbalta to 60mg po daily 08/05 dc gabapentin as pt declines to take it as well as ropinirole. start lyrica 25mg po qhs. 08/06 increase lyrica to 50mg po qhs. 08/07 increase lyrica to 50mg po BID. We discussed STOPPING seroquel- as it can worsen RLS which seems difficult to tx and symptoms visible also during the day. Pt explained that other medications are scheduled for sleep which can be adjusted. TRY NOT TO RESTART SEROQUEL for sleep as it may be worsening RLS. miralax added for constipation. 08/08 keep same treatment 08/09 keep same treatment 08/10 continue tx. lower trazodone from 150mg po qhs to 100mg po qhs. 08/11 increase cymbalta to 90mg po daily. 08/12 continue tx. 08/13 continue tx. 08/14 continue treatment Reason for continued inpatient stay Substantial Risk for: inability to function Time Spent With Patient Time: Total time managing care of this patient today ____ minutes.
[2023-08-15 18:00] VITALS: BP 158/74; PULSE 67; RESP 18; TEMP 35.9; O2SAT 98
[2023-08-15] MEDS: clonazePAM 1 MG TABLET PO (21:53)
[2023-08-15] MEDS: Losartan Potassium 50 MG TABLET PO (21:53)
[2023-08-15] MEDS: traZODone HCL 100 MG TABLET PO (21:54)
[2023-08-16 08:00] VITALS: BP 128/67; PULSE 64; RESP 18; TEMP 36.6; O2SAT 97
[2023-08-16] MEDS: Magnesium Oxide 400 MG TABLET PO ×2 (08:46→16:55)
[2023-08-16] MEDS: Sennosides/Docusate Sodium TABLET 1 TAB PO ×2 (08:46→20:31)
[2023-08-16] MEDS: NaPROXEN 250 MG TABLET PO ×2 (08:46→16:55)
[2023-08-16] MEDS: Pregabalin 50 MG CAPSULE PO ×2 (08:46→20:30)
[2023-08-16] MEDS: DULoxetine HCl 30 MG CAPSULE.DR 90 MG PO (10:06)
--- NOTE | 2023-08-16 10:28 | P.PNPSI_ITS ---
Subjective Subjective Date of Service: 08/16/23 Reason For Visit: Psychosis Subjective Notes: Conditional Voluntary Interim History: Met with patient. Discussed with Nursing. Chart reviewed. Has been quiet, isolative and depressed. Still endorses feeling down. Uncertainty regarding future. No SI. Sleep okay. No med concerns. Medication Compliance: Yes Side effects from medications: No Attending Groups: Yes Review of Systems Acute medical concerns: No Review of Systems Review of Systems Unremarkable Mental Status Exam Mental Status Exam Narrative: Appearance: Somewhat disheveled Behavior: Cooperative Psychomotor: Alert Speech: clear, normal rate/rhythm/volume, spontaneous TP: linear TC: preoccupied with pain, stressors, feeling very hopeless, helpless Mood: Anxious dysphoric Affect: irritable, guarded SI: denied HI: none VH/AH: none Delusions: none Insight/judgment: fair x 2. Memory/cog: alert, oriented x 3 Patient Appearance: Appropriate Patient Orientation: Person and Situation Level of Consciousness: Awake Patient Behavior: Guarded and Passive Mood Description: Withdrawn Affect Description: Constricted Patient Cognition Impaired: Yes Ability to Follow Directions: Good Speech Pattern: Clear Diagnostics Vital Signs (24Hr): Vital Signs - 24 hr 08/15/23 18:00 Temperature 96.7 F L Pulse Rate 67 Respiratory Rate 18 Blood Pressure 158/74 H Pulse Oximetry 98 Oxygen Delivery Method Room Air BMI result Body Mass Index 26.5 Labs 07/26/23 23:41 08/05/23 17:29 Imaging Radiology Impressions: ITS Impressions KUB X-Ray 08/07/23 15:28 IMPRESSION: Mild to moderate stool burden. No evidence of bowel obstruction. Medications Medications Current Medications Acetaminophen (Acetaminophen 325 Mg Tablet) 975 mg PO TID PRN PRN Reason: Pain, Moderate(Pain Scale 4-6) Last Admin: 08/14/23 21:01 Dose: 975 mg Al Hydroxide/Mg Hydroxide (Magnesium Hydrox/Alum Hydrox 30 Ml Oral.Susp) 30 ml PO Q6H PRN PRN Reason: Heartburn/Nausea Clonazepam (Clonazepam 1 Mg Tablet) 1 mg PO BEDTIME [facility] Last Admin: 08/15/23 21:53 Dose: 1 mg Duloxetine HCl (Duloxetine Hcl 30 Mg Capsule.Dr) 90 mg PO DAILY [facility] Last Admin: 08/16/23 10:06 Dose: 90 mg Loperamide HCl (Loperamide Hcl 2 Mg Capsule) 2 mg PO Q6H PRN PRN Reason: loose stool Losartan Potassium (Losartan Potassium 50 Mg Tablet) 50 mg PO BEDTIME [facility]; Protocol Last Admin: 08/15/23 21:53 Dose: 50 mg Magnesium Hydroxide (Milk Of Magnesia 30 Ml Oral.Susp) 30 ml PO DAILY PRN PRN Reason: Constipation Last Admin: 08/09/23 21:24 Dose: 30 ml Magnesium Oxide (Magnesium Oxide 400 Mg Tablet) 400 mg PO BIDPC [facility] Last Admin: 08/16/23 08:46 Dose: 400 mg Naproxen (Naproxen 250 Mg Tablet) 250 mg PO BIDWM [facility] Last Admin: 08/16/23 08:46 Dose: 250 mg Polyethylene Glycol (Polyethylene Glycol 3350 17 Gm Powd.Pack) 17 gm PO DAILY PRN PRN Reason: constipation Pregabalin (Pregabalin 50 Mg Capsule) 50 mg PO BID [facility] Last Admin: 08/16/23 08:46 Dose: 50 mg Senna/Docusate Sodium (Sennosides/Docusate Sodium Tablet) 1 tab PO BID [facility] Last Admin: 08/16/23 08:46 Dose: 1 tab Trazodone HCl (Trazodone Hcl 100 Mg Tablet) 100 mg PO BEDTIME [facility] Last Admin: 08/15/23 21:54 Dose: 100 mg Allergies Allergies Allergy/AdvReac Type Severity Reaction Status Date / Time rosuvastatin [From Crestor] Allergy Mild Dizziness Verified 07/26/23 23:40 sulfacetamide Allergy Mild coma Verified 07/26/23 23:40 [From Sulfacet-R] sulfur [From Sulfacet-R] Allergy Mild coma Verified 07/26/23 23:40 Assessment & Plan Assessment & Plan (1) MDD (major depressive disorder), recurrent episode, moderate: Status: Acute Code(s): F33.1 - Major depressive disorder, recurrent, moderate (2) Generalized anxiety disorder: Status: Acute Code(s): F41.1 - Generalized anxiety disorder (3) Cognitive impairment: Status: Acute Code(s): R41.89 - Other symptoms and signs involving cognitive functions and awareness Plan Mr. Zhou is a 72 year-old male with hx of MDD, feeling of restless which I do suspect may be related to his dx of RLS. He also presents as hopeless and helpless due to multiple stressors including financial, not having as much assistance after divorce and worsening of physical health. We discussed risks, benefits and alternative treatment options. He agreed to stop seroquel as it may be worsening RLS. Try instead clonazepam at bedtime. Once sense of restlessness more undercontrol then will add antidepressant but will suggest either cymbalta or effexor. PLAN 1. Admit to S1, CV, 15 minutes checks for safety 2. continue effexor 37.5mg po daily, will increase in next few days to 75mg po daily. restart lossartan 25mg po daily. pending MOCA/ ACL. continue clonazepam at bedtime but will d/c morning dose due to sedation. 08/01/2023 Will change venlafaxine to duloxetine may eventually have better pain control. Discussed with patient option to increase gabapentin which she did not want to do he is on Seroquel Klonopin at bedtime significant depressive symptoms 08/02/2023 Duloxetine started increase to 30 mg venlafaxine discontinued neuro consult ordered PT consult patient with extreme somatic reaction question somatoform pain disorder try and clarify unclear role for pain management does not want to increase gabapentin complains of side effects 08/03/2019 Continue Cymbalta neuro and PT eval pending would taper gabapentin was not helpful consider Lyrica Tegretol 08/03 increase cymbalta 40mg po daily. pt seen by neurology 08/04 increase cymbalta to 60mg po daily 08/05 dc gabapentin as pt declines to take it as well as ropinirole. start lyrica 25mg po qhs. 08/06 increase lyrica to 50mg po qhs. 08/07 increase lyrica to 50mg po BID. We discussed STOPPING seroquel- as it can worsen RLS which seems difficult to tx and symptoms visible also during the day. Pt explained that other medications are scheduled for sleep which can be adjusted. TRY NOT TO RESTART SEROQUEL for sleep as it may be worsening RLS. miralax added for constipation. 08/08 keep same treatment 08/09 keep same treatment 08/10 continue tx. lower trazodone from 150mg po qhs to 100mg po qhs. 08/11 increase cymbalta to 90mg po daily. 08/12 continue tx. 08/13 continue tx. 08/14 continue treatment 08/15: no changes Reason for continued inpatient stay Substantial Risk for: harm to self Time Spent With Patient Time: Total time managing care of this patient today ____ minutes.
[2023-08-16 18:00] VITALS: BP 139/67; PULSE 78; RESP 18; TEMP 36.4; O2SAT 97
[2023-08-16] MEDS: Losartan Potassium 50 MG TABLET PO (20:30)
[2023-08-16] MEDS: traZODone HCL 100 MG TABLET PO (20:31)
[2023-08-16] MEDS: clonazePAM 1 MG TABLET PO (20:31)
[2023-08-17 06:00] VITALS: BP 127/62; PULSE 63; RESP 18; TEMP 36.2; O2SAT 97
[2023-08-17] MEDS: Magnesium Oxide 400 MG TABLET PO ×2 (08:36→16:50)
[2023-08-17] MEDS: Pregabalin 50 MG CAPSULE PO ×2 (08:36→21:14)
[2023-08-17] MEDS: DULoxetine HCl 30 MG CAPSULE.DR 90 MG PO (08:36)
[2023-08-17] MEDS: NaPROXEN 250 MG TABLET PO ×2 (08:36→16:48)
[2023-08-17] MEDS: Sennosides/Docusate Sodium TABLET 1 TAB PO ×2 (08:36→21:14)
--- NOTE | 2023-08-17 11:04 | P.PNPSI_ITS ---
Subjective Subjective Date of Service: 08/17/23 Reason For Visit: Psychosis Subjective Notes: Conditional Voluntary Interim History: Met with patient. Discussed with Nursing. Sleeping well. Eating well. Does appear brighter in affect. Patient reports mood is getting better. Still a lot of uncertainty though regarding disposition planning and wants to speak with primary team along with family regarding same an impact any property may have on disposition options etc.. Otherwise chronic pain. No SI or HI evident. Medication Compliance: Yes Side effects from medications: No Attending Groups: Intermittent Review of Systems Acute medical concerns: No Mental Status Exam Mental Status Exam Narrative: In bed. Casually dressed and presented. Alert and oriented. Engaged. Less depressed. Denies SI or HI. Is concerned regarding disposition planning. No psychosis or agitation. Insight and judgment fair Diagnostics Vital Signs (24Hr): Vital Signs - 24 hr 08/16/23 18:00 08/17/23 06:00 Temperature 97.5 F 97.1 F Pulse Rate 78 63 Respiratory Rate 18 18 Blood Pressure 139/67 127/62 Pulse Oximetry 97 97 Oxygen Delivery Method Room Air Room Air BMI result Body Mass Index 26.5 Labs 07/26/23 23:41 08/05/23 17:29 Imaging Radiology Impressions: ITS Impressions [facility] X-Ray 08/07/23 15:28 IMPRESSION: Mild to moderate stool burden. No evidence of bowel obstruction. Medications Medications Current Medications Acetaminophen (Acetaminophen 325 Mg Tablet) 975 mg PO TID PRN PRN Reason: Pain, Moderate(Pain Scale 4-6) Last Admin: 08/14/23 21:01 Dose: 975 mg Al Hydroxide/Mg Hydroxide (Magnesium Hydrox/Alum Hydrox 30 Ml Oral.Susp) 30 ml PO Q6H PRN PRN Reason: Heartburn/Nausea Clonazepam (Clonazepam 1 Mg Tablet) 1 mg PO BEDTIME [facility] Last Admin: 08/16/23 20:31 Dose: 1 mg Duloxetine HCl (Duloxetine Hcl 30 Mg Capsule.Dr) 90 mg PO DAILY [facility] Last Admin: 08/17/23 08:36 Dose: 90 mg Loperamide HCl (Loperamide Hcl 2 Mg Capsule) 2 mg PO Q6H PRN PRN Reason: loose stool Losartan Potassium (Losartan Potassium 50 Mg Tablet) 50 mg PO BEDTIME [facility]; Protocol Last Admin: 08/16/23 20:30 Dose: 50 mg Magnesium Hydroxide (Milk Of Magnesia 30 Ml Oral.Susp) 30 ml PO DAILY PRN PRN Reason: Constipation Last Admin: 08/09/23 21:24 Dose: 30 ml Magnesium Oxide (Magnesium Oxide 400 Mg Tablet) 400 mg PO BIDPC [facility] Last Admin: 08/17/23 08:36 Dose: 400 mg Naproxen (Naproxen 250 Mg Tablet) 250 mg PO BIDWM [facility] Last Admin: 08/17/23 08:36 Dose: 250 mg Polyethylene Glycol (Polyethylene Glycol 3350 17 Gm Powd.Pack) 17 gm PO DAILY PRN PRN Reason: constipation Pregabalin (Pregabalin 50 Mg Capsule) 50 mg PO BID [facility] Last Admin: 08/17/23 08:36 Dose: 50 mg Senna/Docusate Sodium (Sennosides/Docusate Sodium Tablet) 1 tab PO BID [facility] Last Admin: 08/17/23 08:36 Dose: 1 tab Trazodone HCl (Trazodone Hcl 100 Mg Tablet) 100 mg PO BEDTIME [facility] Last Admin: 08/16/23 20:31 Dose: 100 mg Allergies Allergies Allergy/AdvReac Type Severity Reaction Status Date / Time rosuvastatin [From Crestor] Allergy Mild Dizziness Verified 07/26/23 23:40 sulfacetamide Allergy Mild coma Verified 07/26/23 23:40 [From Sulfacet-R] sulfur [From Sulfacet-R] Allergy Mild coma Verified 07/26/23 23:40 Assessment & Plan Assessment & Plan (1) MDD (major depressive disorder), recurrent episode, moderate: Status: Acute Code(s): F33.1 - Major depressive disorder, recurrent, moderate (2) Generalized anxiety disorder: Status: Acute Code(s): F41.1 - Generalized anxiety disorder (3) Cognitive impairment: Status: Acute Code(s): R41.89 - Other symptoms and signs involving cognitive functions and awareness Plan Mr. Zhou is a 72 year-old male with hx of MDD, feeling of restless which I do suspect may be related to his dx of RLS. He also presents as hopeless and helpless due to multiple stressors including financial, not having as much assistance after divorce and worsening of physical health. We discussed risks, benefits and alternative treatment options. He agreed to stop seroquel as it may be worsening RLS. Try instead clonazepam at bedtime. Once sense of restlessness more undercontrol then will add antidepressant but will suggest either cymbalta or effexor. PLAN 1. Admit to S1, CV, 15 minutes checks for safety 2. continue effexor 37.5mg po daily, will increase in next few days to 75mg po daily. restart lossartan 25mg po daily. pending MOCA/ ACL. continue clonazepam at bedtime but will d/c morning dose due to sedation. 08/01/2023 Will change venlafaxine to duloxetine may eventually have better pain control. Discussed with patient option to increase gabapentin which she did not want to do he is on Seroquel Klonopin at bedtime significant depressive symptoms 08/02/2023 Duloxetine started increase to 30 mg venlafaxine discontinued neuro consult ordered PT consult patient with extreme somatic reaction question somatoform pain disorder try and clarify unclear role for pain management does not want to increase gabapentin complains of side effects 08/03/2019 Continue Cymbalta neuro and PT eval pending would taper gabapentin was not helpful consider Lyrica Tegretol 08/03 increase cymbalta 40mg po daily. pt seen by neurology 08/04 increase cymbalta to 60mg po daily 08/05 dc gabapentin as pt declines to take it as well as ropinirole. start lyrica 25mg po qhs. 08/06 increase lyrica to 50mg po qhs. 08/07 increase lyrica to 50mg po BID. We discussed STOPPING seroquel- as it can worsen RLS which seems difficult to tx and symptoms visible also during the day. Pt explained that other medications are scheduled for sleep which can be adjusted. TRY NOT TO RESTART SEROQUEL for sleep as it may be worsening RLS. miralax added for constipation. 08/08 keep same treatment 08/09 keep same treatment 08/10 continue tx. lower trazodone from 150mg po qhs to 100mg po qhs. 08/11 increase cymbalta to 90mg po daily. 08/12 continue tx. 08/13 continue tx. 08/14 continue treatment 08/16: no changes Reason for continued inpatient stay Substantial Risk for: rapid decompensation Time Spent With Patient Time: Total time managing care of this patient today ____ minutes.
[2023-08-17 20:35] VITALS: BP 144/67; PULSE 69; RESP 18; TEMP 36.2; O2SAT 96
[2023-08-17] MEDS: Losartan Potassium 50 MG TABLET PO (21:14)
[2023-08-17] MEDS: clonazePAM 1 MG TABLET PO (21:14)
[2023-08-17] MEDS: traZODone HCL 100 MG TABLET PO (21:14)
[2023-08-18 07:45] VITALS: BP 123/61; PULSE 62; RESP 14; TEMP 36.8; O2SAT 97
[2023-08-18] MEDS: Pregabalin 50 MG CAPSULE PO ×3 (08:33→20:38)
[2023-08-18] MEDS: Sennosides/Docusate Sodium TABLET 1 TAB PO ×2 (08:33→20:38)
[2023-08-18] MEDS: Magnesium Oxide 400 MG TABLET PO ×2 (08:33→17:35)
[2023-08-18] MEDS: NaPROXEN 250 MG TABLET PO ×2 (08:33→15:58)
[2023-08-18] MEDS: DULoxetine HCl 30 MG CAPSULE.DR 90 MG PO (08:33)
--- NOTE | 2023-08-18 09:30 | HO.PSYCHPN ---
Subjective Subjective Date of Service: 08/18/23 Reason For Visit: Psychosis Subjective Notes: Conditional Voluntary Interim History: Patient less catastrophic thinking still c/o pain spends much tie in bed Mental Status Exam Mental Status Exam Narrative: In bed. Casually dressed somewhat dishevelled . Alert and oriented. Engaged. Less depressed still psychomotor retarded isolative Denies SI or HI. Is concerned regarding disposition No psychosis or agitation. Insight and judgment fair No amaro or behavrioral problems Diagnostics Vital Signs (24Hr): Vital Signs - 24 hr 08/17/23 20:35 08/18/23 07:45 Temperature 97.1 F 98.2 F Pulse Rate 69 62 Respiratory Rate 18 14 Blood Pressure 144/67 H 123/61 Pulse Oximetry 96 97 Oxygen Delivery Method Room Air Room Air BMI result Body Mass Index 26.5 Labs 07/26/23 23:41 08/05/23 17:29 Imaging Radiology Impressions: ITS Impressions [facility] X-Ray 08/07/23 15:28 IMPRESSION: Mild to moderate stool burden. No evidence of bowel obstruction. Medications Medications Current Medications Acetaminophen (Acetaminophen 325 Mg Tablet) 975 mg PO TID PRN PRN Reason: Pain, Moderate(Pain Scale 4-6) Last Admin: 08/14/23 21:01 Dose: 975 mg Al Hydroxide/Mg Hydroxide (Magnesium Hydrox/Alum Hydrox 30 Ml Oral.Susp) 30 ml PO Q6H PRN PRN Reason: Heartburn/Nausea Clonazepam (Clonazepam 1 Mg Tablet) 1 mg PO BEDTIME [facility] Last Admin: 08/17/23 21:14 Dose: 1 mg Duloxetine HCl (Duloxetine Hcl 30 Mg Capsule.Dr) 90 mg PO DAILY [facility] Last Admin: 08/18/23 08:33 Dose: 90 mg Loperamide HCl (Loperamide Hcl 2 Mg Capsule) 2 mg PO Q6H PRN PRN Reason: loose stool Losartan Potassium (Losartan Potassium 50 Mg Tablet) 50 mg PO BEDTIME [facility]; Protocol Last Admin: 08/17/23 21:14 Dose: 50 mg Magnesium Hydroxide (Milk Of Magnesia 30 Ml Oral.Susp) 30 ml PO DAILY PRN PRN Reason: Constipation Last Admin: 08/09/23 21:24 Dose: 30 ml Magnesium Oxide (Magnesium Oxide 400 Mg Tablet) 400 mg PO BIDPC [facility] Last Admin: 08/18/23 08:33 Dose: 400 mg Naproxen (Naproxen 250 Mg Tablet) 250 mg PO BIDWM [facility] Last Admin: 08/18/23 08:33 Dose: 250 mg Polyethylene Glycol (Polyethylene Glycol 3350 17 Gm Powd.Pack) 17 gm PO DAILY PRN PRN Reason: constipation Pregabalin (Pregabalin 50 Mg Capsule) 50 mg PO BID [facility] Last Admin: 08/18/23 08:33 Dose: 50 mg Senna/Docusate Sodium (Sennosides/Docusate Sodium Tablet) 1 tab PO BID [facility] Last Admin: 08/18/23 08:33 Dose: 1 tab Trazodone HCl (Trazodone Hcl 100 Mg Tablet) 100 mg PO BEDTIME [facility] Last Admin: 08/17/23 21:14 Dose: 100 mg Allergies Allergies Allergy/AdvReac Type Severity Reaction Status Date / Time rosuvastatin [From Crestor] Allergy Mild Dizziness Verified 07/26/23 23:40 sulfacetamide Allergy Mild coma Verified 07/26/23 23:40 [From Sulfacet-R] sulfur [From Sulfacet-R] Allergy Mild coma Verified 07/26/23 23:40 Assessment & Plan Assessment & Plan (1) MDD (major depressive disorder), recurrent episode, moderate: Status: Acute Code(s): F33.1 - Major depressive disorder, recurrent, moderate (2) Generalized anxiety disorder: Status: Acute Code(s): F41.1 - Generalized anxiety disorder (3) Cognitive impairment: Status: Acute Code(s): R41.89 - Other symptoms and signs involving cognitive functions and awareness Plan Mr. Zhou is a 72 year-old male with hx of MDD, feeling of restless which I do suspect may be related to his dx of RLS. He also presents as hopeless and helpless due to multiple stressors including financial, not having as much assistance after divorce and worsening of physical health. We discussed risks, benefits and alternative treatment options. He agreed to stop seroquel as it may be worsening RLS. Try instead clonazepam at bedtime. Once sense of restlessness more undercontrol then will add antidepressant but will suggest either cymbalta or effexor. PLAN 1. Admit to S1, CV, 15 minutes checks for safety 2. continue effexor 37.5mg po daily, will increase in next few days to 75mg po daily. restart lossartan 25mg po daily. pending MOCA/ ACL. continue clonazepam at bedtime but will d/c morning dose due to sedation. 08/01/2023 Will change venlafaxine to duloxetine may eventually have better pain control. Discussed with patient option to increase gabapentin which she did not want to do he is on Seroquel Klonopin at bedtime significant depressive symptoms 08/02/2023 Duloxetine started increase to 30 mg venlafaxine discontinued neuro consult ordered PT consult patient with extreme somatic reaction question somatoform pain disorder try and clarify unclear role for pain management does not want to increase gabapentin complains of side effects 08/03/2019 Continue Cymbalta neuro and PT eval pending would taper gabapentin was not helpful consider Lyrica Tegretol 08/03 increase cymbalta 40mg po daily. pt seen by neurology 08/04 increase cymbalta to 60mg po daily 08/05 dc gabapentin as pt declines to take it as well as ropinirole. start lyrica 25mg po qhs. 08/06 increase lyrica to 50mg po qhs. 08/07 increase lyrica to 50mg po BID. We discussed STOPPING seroquel- as it can worsen RLS which seems difficult to tx and symptoms visible also during the day. Pt explained that other medications are scheduled for sleep which can be adjusted. TRY NOT TO RESTART SEROQUEL for sleep as it may be worsening RLS. miralax added for constipation. 08/08 keep same treatment 08/09 keep same treatment 08/10 continue tx. lower trazodone from 150mg po qhs to 100mg po qhs. 08/11 increase cymbalta to 90mg po daily. 08/12 continue tx. 08/13 continue tx. 08/14 continue treatment 08/16: no changes 08/17 24 i lidocaine patch inc lyrica 50 tid Reason for continued inpatient stay Substantial Risk for: inability to function and rapid decompensation Time Spent With Patient Time: Total time managing care of this patient today ____ minutes.
[2023-08-18] MEDS: Lidocaine 4 % Patch ADH..PATCH 1 PATCH TRANSDERMA ×2 (12:17→12:18)
[2023-08-18 18:00] VITALS: BP 137/65; PULSE 72; RESP 18; TEMP 36.2; O2SAT 97
[2023-08-18] MEDS: clonazePAM 1 MG TABLET PO (20:37)
[2023-08-18] MEDS: Losartan Potassium 50 MG TABLET PO (20:37)
[2023-08-18] MEDS: traZODone HCL 100 MG TABLET PO (20:38)
[2023-08-19] MEDS: DULoxetine HCl 30 MG CAPSULE.DR 90 MG PO (08:14)
[2023-08-19] MEDS: Pregabalin 50 MG CAPSULE PO ×3 (08:15→20:21)
[2023-08-19] MEDS: Sennosides/Docusate Sodium TABLET 1 TAB PO ×2 (08:15→20:21)
[2023-08-19] MEDS: NaPROXEN 250 MG TABLET PO ×2 (08:15→16:36)
[2023-08-19] MEDS: Lidocaine 4 % Patch ADH..PATCH 1 PATCH TRANSDERMA ×2 (08:16→08:17)
[2023-08-19 08:47] VITALS: BP 158/71; PULSE 67; RESP 16; TEMP 36.2; O2SAT 97
[2023-08-19] MEDS: Magnesium Oxide 400 MG TABLET PO ×2 (09:44→16:36)
--- NOTE | 2023-08-19 16:45 | P.PNPSI_ITS ---
Subjective Subjective Date of Service: 08/19/23 Reason For Visit: Psychosis Subjective Notes: Conditional Voluntary Guardianship: No Interim History: The patient seems less depressed more future oriented less preoccupied with pain. He feels that the Lyrica and lidocaine patch her helpful batista affect mood improved Mental Status Exam Mental Status Exam Patient Appearance: Appropriate Patient Orientation: Person, Place and Situation Level of Consciousness: Awake and Appropriate Patient Behavior: Appropriate Mood Description: Calm and Appropriate Affect Description: Appropriate Ability to Follow Directions: Good Speech Pattern: Clear Hallucinations: None Delusions: Not Present Thought Content: positive for Intact Judgement and Insight: Improved judgment much improved mood batista affect patient is stating he is feeling much better. He was ambulating independently appropriately dressed had a smile Diagnostics Vital Signs (24Hr): Vital Signs - 24 hr 08/18/23 18:00 08/19/23 08:47 Temperature 97.1 F 97.1 F Pulse Rate 72 67 Respiratory Rate 18 16 Blood Pressure 137/65 158/71 H Pulse Oximetry 97 97 Oxygen Delivery Method Room Air Room Air BMI result Body Mass Index 26.5 Labs 07/26/23 23:41 08/05/23 17:29 Imaging Radiology Impressions: ITS Impressions KUB X-Ray 08/07/23 15:28 IMPRESSION: Mild to moderate stool burden. No evidence of bowel obstruction. Medications Medications Current Medications Acetaminophen (Acetaminophen 325 Mg Tablet) 975 mg PO TID PRN PRN Reason: Pain, Moderate(Pain Scale 4-6) Last Admin: 08/14/23 21:01 Dose: 975 mg Al Hydroxide/Mg Hydroxide (Magnesium Hydrox/Alum Hydrox 30 Ml Oral.Susp) 30 ml PO Q6H PRN PRN Reason: Heartburn/Nausea Clonazepam (Clonazepam 1 Mg Tablet) 1 mg PO BEDTIME [facility] Last Admin: 08/18/23 20:37 Dose: 1 mg Duloxetine HCl (Duloxetine Hcl 30 Mg Capsule.Dr) 90 mg PO DAILY [facility] Last Admin: 08/19/23 08:14 Dose: 90 mg Lidocaine (Lidocaine 4 % Patch Adh..Patch) 1 patch TRANSDERMA DAILY [facility]; Protocol Last Admin: 08/19/23 08:16 Dose: 1 patch Lidocaine (Lidocaine 4 % Patch Adh..Patch) 1 patch TRANSDERMA DAILY [facility]; Protocol Last Admin: 08/19/23 08:17 Dose: 1 patch Loperamide HCl (Loperamide Hcl 2 Mg Capsule) 2 mg PO Q6H PRN PRN Reason: loose stool Losartan Potassium (Losartan Potassium 50 Mg Tablet) 50 mg PO BEDTIME [facility]; Protocol Last Admin: 08/18/23 20:37 Dose: 50 mg Magnesium Hydroxide (Milk Of Magnesia 30 Ml Oral.Susp) 30 ml PO DAILY PRN PRN Reason: Constipation Last Admin: 08/09/23 21:24 Dose: 30 ml Magnesium Oxide (Magnesium Oxide 400 Mg Tablet) 400 mg PO BIDPC [facility] Last Admin: 08/19/23 16:36 Dose: 400 mg Naproxen (Naproxen 250 Mg Tablet) 250 mg PO BIDWM [facility] Last Admin: 08/19/23 16:36 Dose: 250 mg Polyethylene Glycol (Polyethylene Glycol 3350 17 Gm Powd.Pack) 17 gm PO DAILY PRN PRN Reason: constipation Pregabalin (Pregabalin 50 Mg Capsule) 50 mg PO TID [facility] Last Admin: 08/19/23 14:53 Dose: 50 mg Senna/Docusate Sodium (Sennosides/Docusate Sodium Tablet) 1 tab PO BID [facility] Last Admin: 08/19/23 08:15 Dose: 1 tab Trazodone HCl (Trazodone Hcl 100 Mg Tablet) 100 mg PO BEDTIME [facility] Last Admin: 08/18/23 20:38 Dose: 100 mg Allergies Allergies Allergy/AdvReac Type Severity Reaction Status Date / Time rosuvastatin [From Crestor] Allergy Mild Dizziness Verified 07/26/23 23:40 sulfacetamide Allergy Mild coma Verified 07/26/23 23:40 [From Sulfacet-R] sulfur [From Sulfacet-R] Allergy Mild coma Verified 07/26/23 23:40 Assessment & Plan Assessment & Plan (1) MDD (major depressive disorder), recurrent episode, moderate: Status: Acute Code(s): F33.1 - Major depressive disorder, recurrent, moderate (2) Generalized anxiety disorder: Status: Acute Code(s): F41.1 - Generalized anxiety disorder (3) Cognitive impairment: Status: Acute Code(s): R41.89 - Other symptoms and signs involving cognitive functions and awareness Plan Mr. Zhou is a 72 year-old male with hx of MDD, feeling of restless which I do suspect may be related to his dx of RLS. He also presents as hopeless and helpless due to multiple stressors including financial, not having as much assistance after divorce and worsening of physical health. We discussed risks, benefits and alternative treatment options. He agreed to stop seroquel as it may be worsening RLS. Try instead clonazepam at bedtime. Once sense of restlessness more undercontrol then will add antidepressant but will suggest either cymbalta or effexor. PLAN 1. Admit to S1, CV, 15 minutes checks for safety 2. continue effexor 37.5mg po daily, will increase in next few days to 75mg po daily. restart lossartan 25mg po daily. pending MOCA/ ACL. continue clonazepam at bedtime but will d/c morning dose due to sedation. 08/01/2023 Will change venlafaxine to duloxetine may eventually have better pain control. Discussed with patient option to increase gabapentin which she did not want to do he is on Seroquel Klonopin at bedtime significant depressive symptoms 08/02/2023 Duloxetine started increase to 30 mg venlafaxine discontinued neuro consult ordered PT consult patient with extreme somatic reaction question somatoform pain disorder try and clarify unclear role for pain management does not want to increase gabapentin complains of side effects 08/03/2019 Continue Cymbalta neuro and PT eval pending would taper gabapentin was not helpful consider Lyrica Tegretol 08/03 increase cymbalta 40mg po daily. pt seen by neurology 08/04 increase cymbalta to 60mg po daily 08/05 dc gabapentin as pt declines to take it as well as ropinirole. start lyrica 25mg po qhs. 08/06 increase lyrica to 50mg po qhs. 08/07 increase lyrica to 50mg po BID. We discussed STOPPING seroquel- as it can worsen RLS which seems difficult to tx and symptoms visible also during the day. Pt explained that other medications are scheduled for sleep which can be adjusted. TRY NOT TO RESTART SEROQUEL for sleep as it may be worsening RLS. miralax added for constipation. 08/08 keep same treatment 08/09 keep same treatment 08/10 continue tx. lower trazodone from 150mg po qhs to 100mg po qhs. 08/11 increase cymbalta to 90mg po daily. 08/12 continue tx. 08/13 continue tx. 08/14 continue treatment 08/16: no changes 08/17 24i lidocaine patch inc lyrica 50 tid 08/19/23 Patient seems much improved x1 day continue lidocaine Lyrica Cymbalta discharge planning Reason for continued inpatient stay Substantial Risk for: inability to function, rapid decompensation and med/psych decompensation Time Spent With Patient Time: Total time managing care of this patient today ____ minutes.
[2023-08-19 18:00] VITALS: BP 146/71; PULSE 63; RESP 17; TEMP 36.2; O2SAT 95
[2023-08-19] MEDS: Losartan Potassium 50 MG TABLET PO (20:21)
[2023-08-19] MEDS: clonazePAM 1 MG TABLET PO (20:21)
[2023-08-19] MEDS: traZODone HCL 100 MG TABLET PO (20:21)
[2023-08-20 07:30] VITALS: BP 141/71; PULSE 54; RESP 16; TEMP 36.2; O2SAT 97
[2023-08-20] MEDS: NaPROXEN 250 MG TABLET PO ×2 (08:46→16:45)
[2023-08-20] MEDS: Magnesium Oxide 400 MG TABLET PO ×2 (08:46→16:45)
[2023-08-20] MEDS: Lidocaine 4 % Patch ADH..PATCH 1 PATCH TRANSDERMA ×2 (08:47→08:48)
[2023-08-20] MEDS: Sennosides/Docusate Sodium TABLET 1 TAB PO ×2 (08:47→21:06)
[2023-08-20] MEDS: Pregabalin 50 MG CAPSULE PO ×3 (10:08→21:06)
--- NOTE | 2023-08-20 10:12 | P.PNPSI_ITS ---
Subjective Subjective Date of Service: 08/20/23 Reason For Visit: Psychosis Subjective Notes: Conditional Voluntary Interim History: The patient continues with depressed mood; he reports pain from neuropathy, plantar fascitis and RLS makes it hard for him to walk or do anything easily. he reports lidocaine patch and lyrica is starting to help. He has low energy, anhedonia and flat affect. He is future oriented and agrees to assisted living. he understands that he is unable to live alone now. He states his family is supportive of assisted living. Pt denies SI or HI on unit. he is at high risk given white male, age, physical illness with pain and lives alone. He is anxious and sad about going to assisted living but sttes its helpful to talk about it. Medication Compliance: Yes Side effects from medications: No Attending Groups: Intermittent Review of Systems Acute medical concerns: Yes pain Medical Review of Systems: unchanged Review of Systems Review of Systems foot pain; otherwise Unremarkable Yes all other systems are reviewed and are negative Mental Status Exam Mental Status Exam Narrative: In bed. Casually dressed somewhat dishevelled . Alert and oriented. Engaged. Less depressed still psychomotor retarded, low energy, with anhedonia and isolative Denies SI or HI. Is concerned regarding disposition No psychosis or agitation. Insight and judgment fair No behavioral problems Patient Appearance: Appropriate Patient Orientation: Person, Place and Situation Level of Consciousness: Awake and Appropriate Patient Behavior: Appropriate Mood Description: Calm and Appropriate Affect Description: Appropriate Patient Cognition Impaired: Yes Ability to Follow Directions: Good Speech Pattern: Clear Diagnostics Vital Signs (24Hr): Vital Signs - 24 hr 08/19/23 18:00 08/20/23 07:30 Temperature 97.1 F 97.1 F Pulse Rate 63 54 Respiratory Rate 17 16 Blood Pressure 146/71 H 141/71 H Pulse Oximetry 95 97 Oxygen Delivery Method Room Air Room Air BMI result Body Mass Index 26.5 Labs 07/26/23 23:41 08/05/23 17:29 Imaging Radiology Impressions: ITS Impressions [facility] X-Ray 08/07/23 15:28 IMPRESSION: Mild to moderate stool burden. No evidence of bowel obstruction. Medications Medications Current Medications Acetaminophen (Acetaminophen 325 Mg Tablet) 975 mg PO TID PRN PRN Reason: Pain, Moderate(Pain Scale 4-6) Last Admin: 08/14/23 21:01 Dose: 975 mg Al Hydroxide/Mg Hydroxide (Magnesium Hydrox/Alum Hydrox 30 Ml Oral.Susp) 30 ml PO Q6H PRN PRN Reason: Heartburn/Nausea Clonazepam (Clonazepam 1 Mg Tablet) 1 mg PO BEDTIME [facility] Last Admin: 08/19/23 20:21 Dose: 1 mg Duloxetine HCl (Duloxetine Hcl 30 Mg Capsule.Dr) 90 mg PO DAILY [facility] Last Admin: 08/19/23 08:14 Dose: 90 mg Lidocaine (Lidocaine 4 % Patch Adh..Patch) 1 patch TRANSDERMA DAILY [facility]; Protocol Last Admin: 08/20/23 08:47 Dose: 1 patch Lidocaine (Lidocaine 4 % Patch Adh..Patch) 1 patch TRANSDERMA DAILY [facility]; Protocol Last Admin: 08/20/23 08:48 Dose: 1 patch Loperamide HCl (Loperamide Hcl 2 Mg Capsule) 2 mg PO Q6H PRN PRN Reason: loose stool Losartan Potassium (Losartan Potassium 50 Mg Tablet) 50 mg PO BEDTIME [facility]; Protocol Last Admin: 08/19/23 20:21 Dose: 50 mg Magnesium Hydroxide (Milk Of Magnesia 30 Ml Oral.Susp) 30 ml PO DAILY PRN PRN Reason: Constipation Last Admin: 08/09/23 21:24 Dose: 30 ml Magnesium Oxide (Magnesium Oxide 400 Mg Tablet) 400 mg PO BIDPC [facility] Last Admin: 08/20/23 08:46 Dose: 400 mg Naproxen (Naproxen 250 Mg Tablet) 250 mg PO BIDWM [facility] Last Admin: 08/20/23 08:46 Dose: 250 mg Polyethylene Glycol (Polyethylene Glycol 3350 17 Gm Powd.Pack) 17 gm PO DAILY PRN PRN Reason: constipation Pregabalin (Pregabalin 50 Mg Capsule) 50 mg PO TID [facility] Last Admin: 08/20/23 10:08 Dose: 50 mg Senna/Docusate Sodium (Sennosides/Docusate Sodium Tablet) 1 tab PO BID [facility] Last Admin: 08/20/23 08:47 Dose: 1 tab Trazodone HCl (Trazodone Hcl 100 Mg Tablet) 100 mg PO BEDTIME [facility] Last Admin: 08/19/23 20:21 Dose: 100 mg Allergies Allergies Allergy/AdvReac Type Severity Reaction Status Date / Time rosuvastatin [From Crestor] Allergy Mild Dizziness Verified 07/26/23 23:40 sulfacetamide Allergy Mild coma Verified 07/26/23 23:40 [From Sulfacet-R] sulfur [From Sulfacet-R] Allergy Mild coma Verified 07/26/23 23:40 Assessment & Plan Assessment & Plan (1) MDD (major depressive disorder), recurrent episode, moderate: Status: Acute Code(s): F33.1 - Major depressive disorder, recurrent, moderate (2) Generalized anxiety disorder: Status: Acute Code(s): F41.1 - Generalized anxiety disorder (3) Cognitive impairment: Status: Acute Code(s): R41.89 - Other symptoms and signs involving cognitive functions and awareness Plan Mr. Zhou is a 72 year-old male with hx of MDD, feeling of restless which I do suspect may be related to his dx of RLS. He also presents as hopeless and helpless due to multiple stressors including financial, not having as much assistance after divorce and worsening of physical health. We discussed risks, benefits and alternative treatment options. He agreed to stop seroquel as it may be worsening RLS. Try instead clonazepam at bedtime. Once sense of restlessness more undercontrol then will add antidepressant but will suggest either cymbalta or effexor. PLAN 1. Admit to S1, CV, 15 minutes checks for safety 2. continue effexor 37.5mg po daily, will increase in next few days to 75mg po daily. restart lossartan 25mg po daily. pending MOCA/ ACL. continue clonazepam at bedtime but will d/c morning dose due to sedation. 08/01/2023 Will change venlafaxine to duloxetine may eventually have better pain control. Discussed with patient option to increase gabapentin which she did not want to do he is on Seroquel Klonopin at bedtime significant depressive symptoms 08/02/2023 Duloxetine started increase to 30 mg venlafaxine discontinued neuro consult ordered PT consult patient with extreme somatic reaction question somatoform pain disorder try and clarify unclear role for pain management does not want to increase gabapentin complains of side effects 08/03/2019 Continue Cymbalta neuro and PT eval pending would taper gabapentin was not helpful consider Lyrica Tegretol 08/03 increase cymbalta 40mg po daily. pt seen by neurology 08/04 increase cymbalta to 60mg po daily 08/05 dc gabapentin as pt declines to take it as well as ropinirole. start lyrica 25mg po qhs. 08/06 increase lyrica to 50mg po qhs. 08/07 increase lyrica to 50mg po BID. We discussed STOPPING seroquel- as it can worsen RLS which seems difficult to tx and symptoms visible also during the day. Pt explained that other medications are scheduled for sleep which can be adjusted. TRY NOT TO RESTART SEROQUEL for sleep as it may be worsening RLS. miralax added for constipation. 08/08 keep same treatment 08/09 keep same treatment 08/10 continue tx. lower trazodone from 150mg po qhs to 100mg po qhs. 08/11 increase cymbalta to 90mg po daily. 08/12 continue tx. 08/13 continue tx. 08/14 continue treatment 08/16: no changes 08/17 24i lidocaine patch inc lyrica 50 tid 08/19/23 Patient seems much improved x1 day continue lidocaine Lyrica Cymbalta discharge planning 08/20/23 continue to assess effectiveness of [ain management for feet and pains effect on depression. discharge planning to include assisted living Patient educated on: diagnosis, medication risk/benefits, therapeutic strategies and medical condition Informed Consent: understands and further education needed Reason for continued inpatient stay Substantial Risk for: harm to self, inability to function and med/psych decompensation Time Spent With Patient Time: Total time managing care of this patient today __30__ minutes.
[2023-08-20] MEDS: DULoxetine HCl 30 MG CAPSULE.DR 90 MG PO (11:35)
[2023-08-20 18:00] VITALS: BP 155/74; PULSE 63; RESP 18; TEMP 36.7; O2SAT 96
[2023-08-20] MEDS: Losartan Potassium 50 MG TABLET PO (21:05)
[2023-08-20] MEDS: traZODone HCL 100 MG TABLET PO (21:06)
[2023-08-20] MEDS: clonazePAM 1 MG TABLET PO (21:06)
[2023-08-21 07:00] VITALS: BMI 27.1
[2023-08-21 08:18] VITALS: BP 144/69; PULSE 63; RESP 16; TEMP 35.8; O2SAT 97
[2023-08-21] MEDS: DULoxetine HCl 30 MG CAPSULE.DR 90 MG PO (08:50)
[2023-08-21] MEDS: Magnesium Oxide 400 MG TABLET PO ×2 (08:50→17:04)
[2023-08-21] MEDS: Sennosides/Docusate Sodium TABLET 1 TAB PO ×2 (08:51→20:39)
[2023-08-21] MEDS: Pregabalin 50 MG CAPSULE PO ×3 (08:51→20:40)
[2023-08-21] MEDS: NaPROXEN 250 MG TABLET PO ×2 (08:51→17:04)
[2023-08-21] MEDS: Lidocaine 4 % Patch ADH..PATCH 1 PATCH TRANSDERMA ×2 (08:51→08:52)
--- NOTE | 2023-08-21 13:03 | HO.PSYCHPN ---
Subjective Subjective Date of Service: 08/21/23 Reason For Visit: Psychosis Subjective Notes: Conditional Voluntary Interim History: met with pt no c/os ; feeels down about moving to [facility] but realizes improatnat; he is beginning to think how he can maintain friendships with others despite the move. Feet still with pain; Explained TB test to pt. pt denies SI in hospital Medication Compliance: Yes Side effects from medications: No Diagnostics Vital Signs (24Hr): Vital Signs - 24 hr 08/20/23 18:00 08/21/23 08:18 Temperature 98.1 F 96.5 F L Pulse Rate 63 63 Respiratory Rate 18 16 Blood Pressure 155/74 H 144/69 H Pulse Oximetry 96 97 Oxygen Delivery Method Room Air Room Air BMI result Body Mass Index 27.1 Labs 07/26/23 23:41 08/05/23 17:29 Imaging Radiology Impressions: ITS Impressions KUB X-Ray 08/07/23 15:28 IMPRESSION: Mild to moderate stool burden. No evidence of bowel obstruction. Medications Medications Current Medications Acetaminophen (Acetaminophen 325 Mg Tablet) 975 mg PO TID PRN PRN Reason: Pain, Moderate(Pain Scale 4-6) Last Admin: 08/14/23 21:01 Dose: 975 mg Al Hydroxide/Mg Hydroxide (Magnesium Hydrox/Alum Hydrox 30 Ml Oral.Susp) 30 ml PO Q6H PRN PRN Reason: Heartburn/Nausea Clonazepam (Clonazepam 1 Mg Tablet) 1 mg PO BEDTIME [facility] Last Admin: 08/20/23 21:06 Dose: 1 mg Duloxetine HCl (Duloxetine Hcl 30 Mg Capsule.Dr) 90 mg PO DAILY [facility] Last Admin: 08/21/23 08:50 Dose: 90 mg Lidocaine (Lidocaine 4 % Patch Adh..Patch) 1 patch TRANSDERMA DAILY [facility]; Protocol Last Admin: 08/21/23 08:51 Dose: 1 patch Lidocaine (Lidocaine 4 % Patch Adh..Patch) 1 patch TRANSDERMA DAILY [facility]; Protocol Last Admin: 08/21/23 08:52 Dose: 1 patch Loperamide HCl (Loperamide Hcl 2 Mg Capsule) 2 mg PO Q6H PRN PRN Reason: loose stool Losartan Potassium (Losartan Potassium 50 Mg Tablet) 50 mg PO BEDTIME [facility]; Protocol Last Admin: 08/20/23 21:05 Dose: 50 mg Magnesium Hydroxide (Milk Of Magnesia 30 Ml Oral.Susp) 30 ml PO DAILY PRN PRN Reason: Constipation Last Admin: 08/09/23 21:24 Dose: 30 ml Magnesium Oxide (Magnesium Oxide 400 Mg Tablet) 400 mg PO BIDPC [facility] Last Admin: 08/21/23 08:50 Dose: 400 mg Naproxen (Naproxen 250 Mg Tablet) 250 mg PO BIDWM [facility] Last Admin: 08/21/23 08:51 Dose: 250 mg Polyethylene Glycol (Polyethylene Glycol 3350 17 Gm Powd.Pack) 17 gm PO DAILY PRN PRN Reason: constipation Pregabalin (Pregabalin 50 Mg Capsule) 50 mg PO TID [facility] Last Admin: 08/21/23 08:51 Dose: 50 mg Senna/Docusate Sodium (Sennosides/Docusate Sodium Tablet) 1 tab PO BID [facility] Last Admin: 08/21/23 08:51 Dose: 1 tab Trazodone HCl (Trazodone Hcl 100 Mg Tablet) 100 mg PO BEDTIME [facility] Last Admin: 08/20/23 21:06 Dose: 100 mg Allergies Allergies Allergy/AdvReac Type Severity Reaction Status Date / Time rosuvastatin [From Crestor] Allergy Mild Dizziness Verified 07/26/23 23:40 sulfacetamide Allergy Mild coma Verified 07/26/23 23:40 [From Sulfacet-R] sulfur [From Sulfacet-R] Allergy Mild coma Verified 07/26/23 23:40 Assessment & Plan Assessment & Plan (1) MDD (major depressive disorder), recurrent episode, moderate: Status: Acute Code(s): F33.1 - Major depressive disorder, recurrent, moderate (2) Generalized anxiety disorder: Status: Acute Code(s): F41.1 - Generalized anxiety disorder (3) Cognitive impairment: Status: Acute Code(s): R41.89 - Other symptoms and signs involving cognitive functions and awareness Plan Mr. Zhou is a 72 year-old male with hx of MDD, feeling of restless which I do suspect may be related to his dx of RLS. He also presents as hopeless and helpless due to multiple stressors including financial, not having as much assistance after divorce and worsening of physical health. We discussed risks, benefits and alternative treatment options. He agreed to stop seroquel as it may be worsening RLS. Try instead clonazepam at bedtime. Once sense of restlessness more undercontrol then will add antidepressant but will suggest either cymbalta or effexor. PLAN 1. Admit to S1, CV, 15 minutes checks for safety 2. continue effexor 37.5mg po daily, will increase in next few days to 75mg po daily. restart lossartan 25mg po daily. pending MOCA/ ACL. continue clonazepam at bedtime but will d/c morning dose due to sedation. 08/01/2023 Will change venlafaxine to duloxetine may eventually have better pain control. Discussed with patient option to increase gabapentin which she did not want to do he is on Seroquel Klonopin at bedtime significant depressive symptoms 08/02/2023 Duloxetine started increase to 30 mg venlafaxine discontinued neuro consult ordered PT consult patient with extreme somatic reaction question somatoform pain disorder try and clarify unclear role for pain management does not want to increase gabapentin complains of side effects 08/03/2019 Continue Cymbalta neuro and PT eval pending would taper gabapentin was not helpful consider Lyrica Tegretol 08/03 increase cymbalta 40mg po daily. pt seen by neurology 08/04 increase cymbalta to 60mg po daily 08/05 dc gabapentin as pt declines to take it as well as ropinirole. start lyrica 25mg po qhs. 08/06 increase lyrica to 50mg po qhs. 08/07 increase lyrica to 50mg po BID. We discussed STOPPING seroquel- as it can worsen RLS which seems difficult to tx and symptoms visible also during the day. Pt explained that other medications are scheduled for sleep which can be adjusted. TRY NOT TO RESTART SEROQUEL for sleep as it may be worsening RLS. miralax added for constipation. 08/08 keep same treatment 08/09 keep same treatment 08/10 continue tx. lower trazodone from 150mg po qhs to 100mg po qhs. 08/11 increase cymbalta to 90mg po daily. 08/12 continue tx. 08/13 continue tx. 08/14 continue treatment 08/16: no changes 08/17 24i lidocaine patch inc lyrica 50 tid 08/19/23 Patient seems much improved x1 day continue lidocaine Lyrica Cymbalta discharge planning 08/20/23 continue to assess effectiveness of pain management for feet and pains effect on depression. discharge planning to include assisted living 08/21/23 TB test ordered; continue tx plan Reason for continued inpatient stay Substantial Risk for: inability to function Time Spent With Patient Time: Total time managing care of this patient today ____ minutes.
[2023-08-21 18:00] VITALS: BP 144/71; PULSE 68; RESP 16; TEMP 35.9; O2SAT 94
[2023-08-21] MEDS: clonazePAM 1 MG TABLET PO (20:39)
[2023-08-21] MEDS: Losartan Potassium 50 MG TABLET PO (20:39)
[2023-08-21] MEDS: traZODone HCL 100 MG TABLET PO (20:40)
[2023-08-22 08:00] VITALS: BP 125/70; PULSE 63; RESP 16; TEMP 36.2; O2SAT 98
[2023-08-22] MEDS: Sennosides/Docusate Sodium TABLET 1 TAB PO ×2 (08:18→21:00)
[2023-08-22] MEDS: Magnesium Oxide 400 MG TABLET PO ×2 (08:19→16:16)
[2023-08-22] MEDS: Pregabalin 50 MG CAPSULE PO ×3 (08:19→21:00)
[2023-08-22] MEDS: NaPROXEN 250 MG TABLET PO ×2 (08:20→16:16)
[2023-08-22] MEDS: DULoxetine HCl 30 MG CAPSULE.DR 90 MG PO (08:20)
[2023-08-22] MEDS: Lidocaine 4 % Patch ADH..PATCH 1 PATCH TRANSDERMA ×2 (08:26)
--- NOTE | 2023-08-22 10:45 | P.PNPSI_ITS ---
Subjective Subjective Date of Service: 08/22/23 Reason For Visit: Psychosis Subjective Notes: Conditional Voluntary Interim History: pt in NAD, reports pain in feet 8/10 depression moderate; pt adjusting to news and decison of going to assisted living facility. sleep intact; appetite intact Medication Compliance: Yes Side effects from medications: No Attending Groups: Intermittent Review of Systems Acute medical concerns: No Medical Review of Systems: unchanged Review of Systems Review of Systems foot pain; otherwise Unremarkable Yes all other systems are reviewed and are negative Mental Status Exam Mental Status Exam Narrative: In bed. Casually dressed somewhat dishevelled . Alert and oriented. Engaged. Less depressed still psychomotor retarded, low energy, with anhedonia and isolative Denies SI or HI. Is concerned regarding disposition No psychosis or agitation. Insight and judgment fair No behavioral problems Patient Appearance: Appropriate Patient Orientation: Person, Place and Situation Level of Consciousness: Awake and Appropriate Patient Behavior: Appropriate Mood Description: Calm and Appropriate Affect Description: Appropriate Patient Cognition Impaired: Yes Ability to Follow Directions: Good Speech Pattern: Clear Diagnostics Vital Signs (24Hr): Vital Signs - 24 hr 08/21/23 18:00 08/22/23 08:00 Temperature 96.7 F L 97.1 F Pulse Rate 68 63 Respiratory Rate 16 16 Blood Pressure 144/71 H 125/70 Pulse Oximetry 94 98 Oxygen Delivery Method Room Air Room Air BMI result Body Mass Index 27.1 Labs 07/26/23 23:41 08/05/23 17:29 Imaging Radiology Impressions: ITS Impressions [facility] X-Ray 08/07/23 15:28 IMPRESSION: Mild to moderate stool burden. No evidence of bowel obstruction. Medications Medications Current Medications Acetaminophen (Acetaminophen 325 Mg Tablet) 975 mg PO TID PRN PRN Reason: Pain, Moderate(Pain Scale 4-6) Last Admin: 08/14/23 21:01 Dose: 975 mg Al Hydroxide/Mg Hydroxide (Magnesium Hydrox/Alum Hydrox 30 Ml Oral.Susp) 30 ml PO Q6H PRN PRN Reason: Heartburn/Nausea Clonazepam (Clonazepam 1 Mg Tablet) 1 mg PO BEDTIME [facility] Last Admin: 08/21/23 20:39 Dose: 1 mg Duloxetine HCl (Duloxetine Hcl 30 Mg Capsule.Dr) 90 mg PO DAILY [facility] Last Admin: 08/22/23 08:20 Dose: 90 mg Lidocaine (Lidocaine 4 % Patch Adh..Patch) 1 patch TRANSDERMA DAILY [facility]; Protocol Last Admin: 08/22/23 08:26 Dose: 1 patch Lidocaine (Lidocaine 4 % Patch Adh..Patch) 1 patch TRANSDERMA DAILY [facility]; Protocol Last Admin: 08/22/23 08:26 Dose: 1 patch Loperamide HCl (Loperamide Hcl 2 Mg Capsule) 2 mg PO Q6H PRN PRN Reason: loose stool Losartan Potassium (Losartan Potassium 50 Mg Tablet) 50 mg PO BEDTIME [facility]; Protocol Last Admin: 08/21/23 20:39 Dose: 50 mg Magnesium Hydroxide (Milk Of Magnesia 30 Ml Oral.Susp) 30 ml PO DAILY PRN PRN Reason: Constipation Last Admin: 08/09/23 21:24 Dose: 30 ml Magnesium Oxide (Magnesium Oxide 400 Mg Tablet) 400 mg PO BIDPC [facility] Last Admin: 08/22/23 08:19 Dose: 400 mg Naproxen (Naproxen 250 Mg Tablet) 250 mg PO BIDWM [facility] Last Admin: 08/22/23 08:20 Dose: 250 mg Polyethylene Glycol (Polyethylene Glycol 3350 17 Gm Powd.Pack) 17 gm PO DAILY PRN PRN Reason: constipation Pregabalin (Pregabalin 50 Mg Capsule) 50 mg PO TID [facility] Last Admin: 08/22/23 08:19 Dose: 50 mg Senna/Docusate Sodium (Sennosides/Docusate Sodium Tablet) 1 tab PO BID [facility] Last Admin: 08/22/23 08:18 Dose: 1 tab Trazodone HCl (Trazodone Hcl 100 Mg Tablet) 100 mg PO BEDTIME [facility] Last Admin: 08/21/23 20:40 Dose: 100 mg Allergies Allergies Allergy/AdvReac Type Severity Reaction Status Date / Time rosuvastatin [From Crestor] Allergy Mild Dizziness Verified 07/26/23 23:40 sulfacetamide Allergy Mild coma Verified 07/26/23 23:40 [From Sulfacet-R] sulfur [From Sulfacet-R] Allergy Mild coma Verified 07/26/23 23:40 Assessment & Plan Assessment & Plan (1) MDD (major depressive disorder), recurrent episode, moderate: Status: Acute Code(s): F33.1 - Major depressive disorder, recurrent, moderate (2) Generalized anxiety disorder: Status: Acute Code(s): F41.1 - Generalized anxiety disorder (3) Cognitive impairment: Status: Acute Code(s): R41.89 - Other symptoms and signs involving cognitive functions and awareness Plan Mr. Zhou is a 72 year-old male with hx of MDD, feeling of restless which I do suspect may be related to his dx of RLS. He also presents as hopeless and helpless due to multiple stressors including financial, not having as much assistance after divorce and worsening of physical health. We discussed risks, benefits and alternative treatment options. He agreed to stop seroquel as it may be worsening RLS. Try instead clonazepam at bedtime. Once sense of restlessness more undercontrol then will add antidepressant but will suggest either cymbalta or effexor. PLAN 1. Admit to S1, CV, 15 minutes checks for safety 2. continue effexor 37.5mg po daily, will increase in next few days to 75mg po daily. restart lossartan 25mg po daily. pending MOCA/ ACL. continue clonazepam at bedtime but will d/c morning dose due to sedation. 08/01/2023 Will change venlafaxine to duloxetine may eventually have better pain control. Discussed with patient option to increase gabapentin which she did not want to do he is on Seroquel Klonopin at bedtime significant depressive symptoms 08/02/2023 Duloxetine started increase to 30 mg venlafaxine discontinued neuro consult ordered PT consult patient with extreme somatic reaction question somatoform pain disorder try and clarify unclear role for pain management does not want to increase gabapentin complains of side effects 08/03/2019 Continue Cymbalta neuro and PT eval pending would taper gabapentin was not helpful consider Lyrica Tegretol 08/03 increase cymbalta 40mg po daily. pt seen by neurology 08/04 increase cymbalta to 60mg po daily 08/05 dc gabapentin as pt declines to take it as well as ropinirole. start lyrica 25mg po qhs. 08/06 increase lyrica to 50mg po qhs. 08/07 increase lyrica to 50mg po BID. We discussed STOPPING seroquel- as it can worsen RLS which seems difficult to tx and symptoms visible also during the day. Pt explained that other medications are scheduled for sleep which can be adjusted. TRY NOT TO RESTART SEROQUEL for sleep as it may be worsening RLS. miralax added for constipation. 08/08 keep same treatment 08/09 keep same treatment 08/10 continue tx. lower trazodone from 150mg po qhs to 100mg po qhs. 08/11 increase cymbalta to 90mg po daily. 08/12 continue tx. 08/13 continue tx. 08/14 continue treatment 08/16: no changes 08/17 24 lidocaine patch inc lyrica 50 tid 08/19/23 Patient seems much improved x1 day continue lidocaine Lyrica Cymbalta discharge planning 08/20/23 continue to assess effectiveness of pain management for feet and pains effect on depression. discharge planning to include assisted living 08/21/23 TB test ordered; continue tx plan 08/22/23 continue tx Patient educated on: diagnosis, medication risk/benefits, therapeutic strategies and medical condition Informed Consent: understands and further education needed Reason for continued inpatient stay Substantial Risk for: inability to function Time Spent With Patient Time: Total time managing care of this patient today ____ minutes.
[2023-08-22 18:00] VITALS: BP 151/78; PULSE 66; RESP 18; TEMP 36.2; O2SAT 97
[2023-08-22] MEDS: clonazePAM 1 MG TABLET PO (20:59)
[2023-08-22] MEDS: traZODone HCL 100 MG TABLET PO (21:00)
[2023-08-22] MEDS: Losartan Potassium 50 MG TABLET PO (21:00)
[2023-08-23 08:50] VITALS: BP 136/69; PULSE 69; RESP 16; TEMP 36.1; O2SAT 97
[2023-08-23] MEDS: Lidocaine 4 % Patch ADH..PATCH 1 PATCH TRANSDERMA ×2 (08:51→08:54)
[2023-08-23] MEDS: NaPROXEN 250 MG TABLET PO ×2 (08:53→16:49)
[2023-08-23] MEDS: Sennosides/Docusate Sodium TABLET 1 TAB PO ×2 (08:53→20:55)
[2023-08-23] MEDS: DULoxetine HCl 30 MG CAPSULE.DR 90 MG PO (08:54)
[2023-08-23] MEDS: Pregabalin 50 MG CAPSULE PO ×3 (08:54→20:55)
[2023-08-23] MEDS: Magnesium Oxide 400 MG TABLET PO ×2 (08:54→16:49)
--- NOTE | 2023-08-23 11:40 | HO.PSYCHPN ---
Subjective Subjective Date of Service: 08/23/23 Reason For Visit: Psychosis Interim History: met with patient. Discussed with Nursing. Overall no management issues, pleasant, some anxiety. Chronic bilateral foot pain and lidocaine patches helpful. Patient reports no active issues or concerns. Reports he is listening to his family and that an assisted living facility probably makes most sense. Feeling well cared for. Sleep okay. No med concerns Medication Compliance: Yes Side effects from medications: No Attending Groups: Intermittent Review of Systems Acute medical concerns: No Mental Status Exam Mental Status Exam Narrative: pleasant. Engaged. Hospital clothing. Fair self-care. Alert and oriented. Largely euthymic. No SI or HI. No agitation or psychosis. Insight and judgment fair Diagnostics Vital Signs (24Hr): Vital Signs - 24 hr 08/22/23 18:00 08/23/23 08:50 Temperature 97.2 F 97.0 F Pulse Rate 66 69 Respiratory Rate 18 16 Blood Pressure 151/78 H 136/69 Pulse Oximetry 97 97 Oxygen Delivery Method Room Air Room Air BMI result Body Mass Index 27.1 Labs 07/26/23 23:41 08/05/23 17:29 Imaging Radiology Impressions: ITS Impressions [facility] X-Ray 08/07/23 15:28 IMPRESSION: Mild to moderate stool burden. No evidence of bowel obstruction. Medications Medications Current Medications Acetaminophen (Acetaminophen 325 Mg Tablet) 975 mg PO TID PRN PRN Reason: Pain, Moderate(Pain Scale 4-6) Last Admin: 08/14/23 21:01 Dose: 975 mg Al Hydroxide/Mg Hydroxide (Magnesium Hydrox/Alum Hydrox 30 Ml Oral.Susp) 30 ml PO Q6H PRN PRN Reason: Heartburn/Nausea Clonazepam (Clonazepam 1 Mg Tablet) 1 mg PO BEDTIME [facility] Last Admin: 08/22/23 20:59 Dose: 1 mg Duloxetine HCl (Duloxetine Hcl 30 Mg Capsule.) 90 mg PO DAILY [facility] Last Admin: 08/23/23 08:54 Dose: 90 mg Lidocaine (Lidocaine 4 % Patch Adh..Patch) 1 patch TRANSDERMA DAILY [facility]; Protocol Last Admin: 08/23/23 08:51 Dose: 1 patch Lidocaine (Lidocaine 4 % Patch Adh..Patch) 1 patch TRANSDERMA DAILY [facility]; Protocol Last Admin: 08/23/23 08:54 Dose: 1 patch Loperamide HCl (Loperamide Hcl 2 Mg Capsule) 2 mg PO Q6H PRN PRN Reason: loose stool Losartan Potassium (Losartan Potassium 50 Mg Tablet) 50 mg PO BEDTIME [facility]; Protocol Last Admin: 08/22/23 21:00 Dose: 50 mg Magnesium Hydroxide (Milk Of Magnesia 30 Ml Oral.Susp) 30 ml PO DAILY PRN PRN Reason: Constipation Last Admin: 08/09/23 21:24 Dose: 30 ml Magnesium Oxide (Magnesium Oxide 400 Mg Tablet) 400 mg PO BIDPC [facility] Last Admin: 08/23/23 08:54 Dose: 400 mg Naproxen (Naproxen 250 Mg Tablet) 250 mg PO BIDWM [facility] Last Admin: 08/23/23 08:53 Dose: 250 mg Polyethylene Glycol (Polyethylene Glycol 3350 17 Gm Powd.Pack) 17 gm PO DAILY PRN PRN Reason: constipation Pregabalin (Pregabalin 50 Mg Capsule) 50 mg PO TID [facility] Last Admin: 08/23/23 08:54 Dose: 50 mg Senna/Docusate Sodium (Sennosides/Docusate Sodium Tablet) 1 tab PO BID [facility] Last Admin: 08/23/23 08:53 Dose: 1 tab Trazodone HCl (Trazodone Hcl 100 Mg Tablet) 100 mg PO BEDTIME [facility] Last Admin: 08/22/23 21:00 Dose: 100 mg Allergies Allergies Allergy/AdvReac Type Severity Reaction Status Date / Time rosuvastatin [From Crestor] Allergy Mild Dizziness Verified 07/26/23 23:40 sulfacetamide Allergy Mild coma Verified 07/26/23 23:40 [From Sulfacet-R] sulfur [From Sulfacet-R] Allergy Mild coma Verified 07/26/23 23:40 Assessment & Plan Assessment & Plan (1) MDD (major depressive disorder), recurrent episode, moderate: Status: Acute Code(s): F33.1 - Major depressive disorder, recurrent, moderate (2) Generalized anxiety disorder: Status: Acute Code(s): F41.1 - Generalized anxiety disorder (3) Cognitive impairment: Status: Acute Code(s): R41.89 - Other symptoms and signs involving cognitive functions and awareness Plan Mr. Zhou is a 72 year-old male with hx of MDD, feeling of restless which I do suspect may be related to his dx of RLS. He also presents as hopeless and helpless due to multiple stressors including financial, not having as much assistance after divorce and worsening of physical health. We discussed risks, benefits and alternative treatment options. He agreed to stop seroquel as it may be worsening RLS. Try instead clonazepam at bedtime. Once sense of restlessness more undercontrol then will add antidepressant but will suggest either cymbalta or effexor. PLAN 1. Admit to S1, CV, 15 minutes checks for safety 2. continue effexor 37.5mg po daily, will increase in next few days to 75mg po daily. restart lossartan 25mg po daily. pending MOCA/ ACL. continue clonazepam at bedtime but will d/c morning dose due to sedation. 08/01/2023 Will change venlafaxine to duloxetine may eventually have better pain control. Discussed with patient option to increase gabapentin which she did not want to do he is on Seroquel Klonopin at bedtime significant depressive symptoms 08/02/2023 Duloxetine started increase to 30 mg venlafaxine discontinued neuro consult ordered PT consult patient with extreme somatic reaction question somatoform pain disorder try and clarify unclear role for pain management does not want to increase gabapentin complains of side effects 08/03/2019 Continue Cymbalta neuro and PT eval pending would taper gabapentin was not helpful consider Lyrica Tegretol 08/03 increase cymbalta 40mg po daily. pt seen by neurology 08/04 increase cymbalta to 60mg po daily 08/05 dc gabapentin as pt declines to take it as well as ropinirole. start lyrica 25mg po qhs. 08/06 increase lyrica to 50mg po qhs. 08/07 increase lyrica to 50mg po BID. We discussed STOPPING seroquel- as it can worsen RLS which seems difficult to tx and symptoms visible also during the day. Pt explained that other medications are scheduled for sleep which can be adjusted. TRY NOT TO RESTART SEROQUEL for sleep as it may be worsening RLS. miralax added for constipation. 08/08 keep same treatment 08/09 keep same treatment 08/10 continue tx. lower trazodone from 150mg po qhs to 100mg po qhs. 08/11 increase cymbalta to 90mg po daily. 08/12 continue tx. 08/13 continue tx. 08/14 continue treatment 08/16: no changes 08/17 lidocaine patch inc lyrica 50 tid 08/19/23 Patient seems much improved x1 day continue lidocaine Lyrica Cymbalta discharge planning 08/20/23 continue to assess effectiveness of pain management for feet and pains effect on depression. discharge planning to include assisted living 08/21/23 TB test ordered; continue tx plan 08/22/23 continue tx 08/22: no changes Reason for continued inpatient stay Substantial Risk for: rapid decompensation Time Spent With Patient Time: Total time managing care of this patient today ____ minutes.
[2023-08-23 18:00] VITALS: BP 148/73; PULSE 73; RESP 18; TEMP 36.4; O2SAT 96
[2023-08-23] MEDS: Losartan Potassium 50 MG TABLET PO (20:54)
[2023-08-23] MEDS: clonazePAM 1 MG TABLET PO (20:54)
[2023-08-23] MEDS: traZODone HCL 100 MG TABLET PO (20:55)
[2023-08-24 04:19] LABS: TS Negative Control Passed; TS Panel A 1; TS Panel B 0; TS Positive Control Passed; TSpotTB Negative (Negative)
[2023-08-24 08:30] VITALS: BP 144/72; PULSE 62; RESP 16; TEMP 36.4; O2SAT 96
[2023-08-24] MEDS: Lidocaine 4 % Patch ADH..PATCH 1 PATCH TRANSDERMA ×2 (09:01→09:02)
[2023-08-24] MEDS: NaPROXEN 250 MG TABLET PO ×2 (09:02→16:04)
[2023-08-24] MEDS: Pregabalin 50 MG CAPSULE PO ×3 (09:03→20:22)
[2023-08-24] MEDS: Sennosides/Docusate Sodium TABLET 1 TAB PO ×2 (09:03→20:22)
[2023-08-24] MEDS: DULoxetine HCl 30 MG CAPSULE.DR 90 MG PO (09:03)
[2023-08-24] MEDS: Magnesium Oxide 400 MG TABLET PO ×2 (09:03→16:38)
--- NOTE | 2023-08-24 09:58 | P.PNPSI_ITS ---
Subjective Subjective Date of Service: 08/24/23 Reason For Visit: Psychosis Interim History: Met with patient. Discussed with Nursing. Overall no management issues, pleasant, some anxiety. Chronic bilateral foot pain and lidocaine patches helpful. Sleep ok. No med concerns. Patient reports no active issues or concerns. Hopeful he can go to [facility] this week- family moving things there Friday hopefully. Medication Compliance: Yes Side effects from medications: No Attending Groups: No Review of Systems Acute medical concerns: No Review of Systems Review of Systems chronic foot pain; otherwise Unremarkable Mental Status Exam Mental Status Exam Narrative: pleasant. Engaged. Hospital clothing. Fair self-care. Alert and oriented. Largely euthymic. No SI or HI. No agitation or psychosis. Insight and judgment fair Diagnostics Vital Signs (24Hr): Vital Signs - 24 hr 08/23/23 18:00 Temperature 97.5 F Pulse Rate 73 Respiratory Rate 18 Blood Pressure 148/73 H Pulse Oximetry 96 Oxygen Delivery Method Room Air BMI result Body Mass Index 27.1 Labs 07/26/23 23:41 08/05/23 17:29 Labs: Laboratory Results - last 48 hr 08/21/23 14:20 TB Test (T-Spot) Com Negative TB Test Nil Control Passed TB Test Panel A 1 TB Test Panel B 0 TB Test Positive Cntrl Passed Imaging Radiology Impressions: ITS Impressions [facility] X-Ray 08/07/23 15:28 IMPRESSION: Mild to moderate stool burden. No evidence of bowel obstruction. Medications Medications Current Medications Acetaminophen (Acetaminophen 325 Mg Tablet) 975 mg PO TID PRN PRN Reason: Pain, Moderate(Pain Scale 4-6) Last Admin: 08/14/23 21:01 Dose: 975 mg Al Hydroxide/Mg Hydroxide (Magnesium Hydrox/Alum Hydrox 30 Ml Oral.Susp) 30 ml PO Q6H PRN PRN Reason: Heartburn/Nausea Clonazepam (Clonazepam 1 Mg Tablet) 1 mg PO BEDTIME [facility] Last Admin: 08/23/23 20:54 Dose: 1 mg Duloxetine HCl (Duloxetine Hcl 30 Mg Capsule.Dr) 90 mg PO DAILY [facility] Last Admin: 08/24/23 09:03 Dose: 90 mg Lidocaine (Lidocaine 4 % Patch Adh..Patch) 1 patch TRANSDERMA DAILY [facility]; Protocol Last Admin: 08/24/23 09:01 Dose: 1 patch Lidocaine (Lidocaine 4 % Patch Adh..Patch) 1 patch TRANSDERMA DAILY [facility]; Protocol Last Admin: 08/24/23 09:02 Dose: 1 patch Loperamide HCl (Loperamide Hcl 2 Mg Capsule) 2 mg PO Q6H PRN PRN Reason: loose stool Losartan Potassium (Losartan Potassium 50 Mg Tablet) 50 mg PO BEDTIME [facility]; Protocol Last Admin: 08/23/23 20:54 Dose: 50 mg Magnesium Hydroxide (Milk Of Magnesia 30 Ml Oral.Susp) 30 ml PO DAILY PRN PRN Reason: Constipation Last Admin: 08/09/23 21:24 Dose: 30 ml Magnesium Oxide (Magnesium Oxide 400 Mg Tablet) 400 mg PO BIDPC [facility] Last Admin: 08/24/23 09:03 Dose: 400 mg Naproxen (Naproxen 250 Mg Tablet) 250 mg PO BIDWM [facility] Last Admin: 08/24/23 09:02 Dose: 250 mg Polyethylene Glycol (Polyethylene Glycol 3350 17 Gm Powd.Pack) 17 gm PO DAILY PRN PRN Reason: constipation Pregabalin (Pregabalin 50 Mg Capsule) 50 mg PO TID [facility] Last Admin: 08/24/23 09:03 Dose: 50 mg Senna/Docusate Sodium (Sennosides/Docusate Sodium Tablet) 1 tab PO BID [facility] Last Admin: 08/24/23 09:03 Dose: 1 tab Trazodone HCl (Trazodone Hcl 100 Mg Tablet) 100 mg PO BEDTIME [facility] Last Admin: 08/23/23 20:55 Dose: 100 mg Allergies Allergies Allergy/AdvReac Type Severity Reaction Status Date / Time rosuvastatin [From Crestor] Allergy Mild Dizziness Verified 07/26/23 23:40 sulfacetamide Allergy Mild coma Verified 07/26/23 23:40 [From Sulfacet-R] sulfur [From Sulfacet-R] Allergy Mild coma Verified 07/26/23 23:40 Assessment & Plan Assessment & Plan (1) MDD (major depressive disorder), recurrent episode, moderate: Status: Acute Code(s): F33.1 - Major depressive disorder, recurrent, moderate (2) Generalized anxiety disorder: Status: Acute Code(s): F41.1 - Generalized anxiety disorder (3) Cognitive impairment: Status: Acute Code(s): R41.89 - Other symptoms and signs involving cognitive functions and awareness Plan Mr. Zhou is a 72 year-old male with hx of MDD, feeling of restless which I do suspect may be related to his dx of RLS. He also presents as hopeless and helpless due to multiple stressors including financial, not having as much assistance after divorce and worsening of physical health. We discussed risks, benefits and alternative treatment options. He agreed to stop seroquel as it may be worsening RLS. Try instead clonazepam at bedtime. Once sense of restlessness more undercontrol then will add antidepressant but will suggest either cymbalta or effexor. PLAN 1. Admit to S1, CV, 15 minutes checks for safety 2. continue effexor 37.5mg po daily, will increase in next few days to 75mg po daily. restart lossartan 25mg po daily. pending MOCA/ ACL. continue clonazepam at bedtime but will d/c morning dose due to sedation. 08/01/2023 Will change venlafaxine to duloxetine may eventually have better pain control. Discussed with patient option to increase gabapentin which she did not want to do he is on Seroquel Klonopin at bedtime significant depressive symptoms 08/02/2023 Duloxetine started increase to 30 mg venlafaxine discontinued neuro consult ordered PT consult patient with extreme somatic reaction question somatoform pain disorder try and clarify unclear role for pain management does not want to increase gabapentin complains of side effects 08/03/2019 Continue Cymbalta neuro and PT eval pending would taper gabapentin was not helpful consider Lyrica Tegretol 08/03 increase cymbalta 40mg po daily. pt seen by neurology 08/04 increase cymbalta to 60mg po daily 08/05 dc gabapentin as pt declines to take it as well as ropinirole. start lyrica 25mg po qhs. 08/06 increase lyrica to 50mg po qhs. 08/07 increase lyrica to 50mg po BID. We discussed STOPPING seroquel- as it can worsen RLS which seems difficult to tx and symptoms visible also during the day. Pt explained that other medications are scheduled for sleep which can be adjusted. TRY NOT TO RESTART SEROQUEL for sleep as it may be worsening RLS. miralax added for constipation. 08/08 keep same treatment 08/09 keep same treatment 08/10 continue tx. lower trazodone from 150mg po qhs to 100mg po qhs. 08/11 increase cymbalta to 90mg po daily. 08/12 continue tx. 08/13 continue tx. 08/14 continue treatment 08/16: no changes 08/17 lidocaine patch inc lyrica 50 tid 08/19/23 Patient seems much improved x1 day continue lidocaine Lyrica Cymbalta discharge planning 08/20/23 continue to assess effectiveness of pain management for feet and pains effect on depression. discharge planning to include assisted living 08/21/23 TB test ordered; continue tx plan 08/22/23 continue tx 08/22: no changes 08/23: no changes Reason for continued inpatient stay Substantial Risk for: rapid decompensation Time Spent With Patient Time: Total time managing care of this patient today ____ minutes.
[2023-08-24 18:00] VITALS: BP 145/71; PULSE 65; RESP 18; TEMP 36.1; O2SAT 98
[2023-08-24] MEDS: Losartan Potassium 50 MG TABLET PO (20:21)
[2023-08-24] MEDS: traZODone HCL 100 MG TABLET PO (20:21)
[2023-08-24] MEDS: clonazePAM 1 MG TABLET PO (20:22)
--- NOTE | 2023-08-25 08:28 | P.PNPSI_ITS ---
Subjective Subjective Date of Service: 08/25/23 Reason For Visit: Psychosis Subjective Notes: Conditional Voluntary Interim History: Pt reports mood is good He reports sleep has overall significantly improved. No SI/HI. Feet pain same. VS stable. sleeping well. No behavioral concerns. Diagnostics Vital Signs (24Hr): Vital Signs - 24 hr 08/24/23 08:30 08/24/23 18:00 Temperature 97.6 F 97 F Pulse Rate 62 65 Respiratory Rate 16 18 Blood Pressure 144/72 H 145/71 H Pulse Oximetry 96 98 Oxygen Delivery Method Room Air Room Air BMI result Body Mass Index 27.1 Labs 07/26/23 23:41 08/05/23 17:29 Labs: Laboratory Results - last 48 hr 08/21/23 14:20 TB Test (T-Spot) Com Negative TB Test Nil Control Passed TB Test Panel A 1 TB Test Panel B 0 TB Test Positive Cntrl Passed Imaging Radiology Impressions: ITS Impressions KUB X-Ray 08/07/23 15:28 IMPRESSION: Mild to moderate stool burden. No evidence of bowel obstruction. Medications Medications Current Medications Acetaminophen (Acetaminophen 325 Mg Tablet) 975 mg PO TID PRN PRN Reason: Pain, Moderate(Pain Scale 4-6) Last Admin: 08/14/23 21:01 Dose: 975 mg Al Hydroxide/Mg Hydroxide (Magnesium Hydrox/Alum Hydrox 30 Ml Oral.Susp) 30 ml PO Q6H PRN PRN Reason: Heartburn/Nausea Clonazepam (Clonazepam 1 Mg Tablet) 1 mg PO BEDTIME [facility] Last Admin: 08/24/23 20:22 Dose: 1 mg Duloxetine HCl (Duloxetine Hcl 30 Mg Capsule.Dr) 90 mg PO DAILY J[facility]NETTE Last Admin: 08/24/23 09:03 Dose: 90 mg Lidocaine (Lidocaine 4 % Patch Adh..Patch) 1 patch TRANSDERMA DAILY [facility]; Protocol Last Admin: 08/24/23 09:01 Dose: 1 patch Lidocaine (Lidocaine 4 % Patch Adh..Patch) 1 patch TRANSDERMA DAILY [facility]; Protocol Last Admin: 08/24/23 09:02 Dose: 1 patch Loperamide HCl (Loperamide Hcl 2 Mg Capsule) 2 mg PO Q6H PRN PRN Reason: loose stool Losartan Potassium (Losartan Potassium 50 Mg Tablet) 50 mg PO BEDTIME [facility]; Protocol Last Admin: 08/24/23 20:21 Dose: 50 mg Magnesium Hydroxide (Milk Of Magnesia 30 Ml Oral.Susp) 30 ml PO DAILY PRN PRN Reason: Constipation Last Admin: 08/09/23 21:24 Dose: 30 ml Magnesium Oxide (Magnesium Oxide 400 Mg Tablet) 400 mg PO BIDPC [facility] Last Admin: 08/24/23 16:38 Dose: 400 mg Naproxen (Naproxen 250 Mg Tablet) 250 mg PO BIDWM [facility] Last Admin: 08/24/23 16:04 Dose: 250 mg Polyethylene Glycol (Polyethylene Glycol 3350 17 Gm Powd.Pack) 17 gm PO DAILY PRN PRN Reason: constipation Pregabalin (Pregabalin 50 Mg Capsule) 50 mg PO TID [facility] Last Admin: 08/24/23 20:22 Dose: 50 mg Senna/Docusate Sodium (Sennosides/Docusate Sodium Tablet) 1 tab PO BID [facility] Last Admin: 08/24/23 20:22 Dose: 1 tab Trazodone HCl (Trazodone Hcl 100 Mg Tablet) 100 mg PO BEDTIME [facility] Last Admin: 08/24/23 20:21 Dose: 100 mg Allergies Allergies Allergy/AdvReac Type Severity Reaction Status Date / Time rosuvastatin [From Crestor] Allergy Mild Dizziness Verified 07/26/23 23:40 sulfacetamide Allergy Mild coma Verified 07/26/23 23:40 [From Sulfacet-R] sulfur [From Sulfacet-R] Allergy Mild coma Verified 07/26/23 23:40 Assessment & Plan Assessment & Plan (1) MDD (major depressive disorder), recurrent episode, moderate: Status: Acute Code(s): F33.1 - Major depressive disorder, recurrent, moderate (2) Generalized anxiety disorder: Status: Acute Code(s): F41.1 - Generalized anxiety disorder (3) Cognitive impairment: Status: Acute Code(s): R41.89 - Other symptoms and signs involving cognitive functions and awareness Plan Mr. Zhou is a 72 year-old male with hx of MDD, feeling of restless which I do suspect may be related to his dx of RLS. He also presents as hopeless and helpless due to multiple stressors including financial, not having as much assistance after divorce and worsening of physical health. We discussed risks, benefits and alternative treatment options. He agreed to stop seroquel as it may be worsening RLS. Try instead clonazepam at bedtime. Once sense of restlessness more undercontrol then will add antidepressant but will suggest either cymbalta or effexor. PLAN 1. Admit to S1, CV, 15 minutes checks for safety 2. continue effexor 37.5mg po daily, will increase in next few days to 75mg po daily. restart lossartan 25mg po daily. pending MOCA/ ACL. continue clonazepam at bedtime but will d/c morning dose due to sedation. 08/01/2023 Will change venlafaxine to duloxetine may eventually have better pain control. Discussed with patient option to increase gabapentin which she did not want to do he is on Seroquel Klonopin at bedtime significant depressive symptoms 08/02/2023 Duloxetine started increase to 30 mg venlafaxine discontinued neuro consult ordered PT consult patient with extreme somatic reaction question somatoform pain disorder try and clarify unclear role for pain management does not want to increase gabapentin complains of side effects 08/03/2019 Continue Cymbalta neuro and PT eval pending would taper gabapentin was not helpful consider Lyrica Tegretol 08/03 increase cymbalta 40mg po daily. pt seen by neurology 08/04 increase cymbalta to 60mg po daily 08/05 dc gabapentin as pt declines to take it as well as ropinirole. start lyrica 25mg po qhs. 08/06 increase lyrica to 50mg po qhs. 08/07 increase lyrica to 50mg po BID. We discussed STOPPING seroquel- as it can worsen RLS which seems difficult to tx and symptoms visible also during the day. Pt explained that other medications are scheduled for sleep which can be adjusted. TRY NOT TO RESTART SEROQUEL for sleep as it may be worsening RLS. miralax added for constipation. 08/08 keep same treatment 08/09 keep same treatment 08/10 continue tx. lower trazodone from 150mg po qhs to 100mg po qhs. 08/11 increase cymbalta to 90mg po daily. 08/12 continue tx. 08/13 continue tx. 08/14 continue treatment 08/16: no changes 08/17 24i lidocaine patch inc lyrica 50 tid 08/19/23 Patient seems much improved x1 day continue lidocaine Lyrica Cymbalta discharge planning 08/20/23 continue to assess effectiveness of pain management for feet and pains effect on depression. discharge planning to include assisted living 08/21/23 TB test ordered; continue tx plan 08/22/23 continue tx 08/22: no changes 08/23: no changes 08/24 continue tx. Reason for continued inpatient stay Substantial Risk for: inability to function Time Spent With Patient Time: Total time managing care of this patient today ____ minutes.
[2023-08-25 08:30] VITALS: BP 139/67; PULSE 62; RESP 18; O2SAT 97
[2023-08-25] MEDS: Sennosides/Docusate Sodium TABLET 1 TAB PO ×2 (08:39→20:32)
[2023-08-25] MEDS: NaPROXEN 250 MG TABLET PO ×2 (08:39→20:33)
[2023-08-25] MEDS: DULoxetine HCl 30 MG CAPSULE.DR 90 MG PO (08:39)
[2023-08-25] MEDS: Magnesium Oxide 400 MG TABLET PO ×2 (08:39→20:33)
[2023-08-25] MEDS: Pregabalin 50 MG CAPSULE PO ×3 (08:40→20:32)
[2023-08-25] MEDS: Lidocaine 4 % Patch ADH..PATCH 1 PATCH TRANSDERMA ×2 (08:41→08:42)
[2023-08-25 18:00] VITALS: BP 144/73; PULSE 66; RESP 16; TEMP 36.6; O2SAT 95
[2023-08-25] MEDS: traZODone HCL 100 MG TABLET PO (20:32)
[2023-08-25] MEDS: Losartan Potassium 50 MG TABLET PO (20:33)
[2023-08-25] MEDS: clonazePAM 1 MG TABLET PO (20:34)
[2023-08-26 06:00] VITALS: BP 133/62; PULSE 62; RESP 16; TEMP 36.2; O2SAT 97
[2023-08-26] MEDS: Pregabalin 50 MG CAPSULE PO ×3 (08:46→21:14)
[2023-08-26] MEDS: DULoxetine HCl 30 MG CAPSULE.DR 90 MG PO (08:46)
[2023-08-26] MEDS: Magnesium Oxide 400 MG TABLET PO ×2 (08:46→17:27)
[2023-08-26] MEDS: Sennosides/Docusate Sodium TABLET 1 TAB PO ×2 (08:46→21:14)
[2023-08-26] MEDS: NaPROXEN 250 MG TABLET PO ×2 (08:46→17:26)
[2023-08-26] MEDS: Lidocaine 4 % Patch ADH..PATCH 1 PATCH TRANSDERMA ×2 (08:47)
--- NOTE | 2023-08-26 10:09 | P.PNPSI_ITS ---
Subjective Subjective Date of Service: 08/26/23 Reason For Visit: Psychosis Subjective Notes: Conditional Voluntary Interim History: Pt slept through the night. He continue to report mood is okay. He is concern about financial aspects of JED. No SI/HI. feet pain ongoing. No behavioral concerns. Review of Systems Review of Systems chronic foot pain; otherwise Unremarkable Yes all other systems are reviewed and are negative Mental Status Exam Mental Status Exam Patient Appearance: Appropriate Patient Orientation: Person, Place and Situation Level of Consciousness: Awake and Appropriate Patient Behavior: Appropriate Mood Description: Calm and Appropriate Affect Description: Appropriate Patient Cognition Impaired: Yes Ability to Follow Directions: Good Speech Pattern: Clear Diagnostics Vital Signs (24Hr): Vital Signs - 24 hr 08/25/23 18:00 08/26/23 06:00 Temperature 97.9 F 97.1 F Pulse Rate 66 62 Respiratory Rate 16 16 Blood Pressure 144/73 H 133/62 Pulse Oximetry 95 97 Oxygen Delivery Method Room Air Room Air BMI result Body Mass Index 27.1 Labs 07/26/23 23:41 08/05/23 17:29 Imaging Radiology Impressions: ITS Impressions [facility] X-Ray 08/07/23 15:28 IMPRESSION: Mild to moderate stool burden. No evidence of bowel obstruction. Medications Medications Current Medications Acetaminophen (Acetaminophen 325 Mg Tablet) 975 mg PO TID PRN PRN Reason: Pain, Moderate(Pain Scale 4-6) Last Admin: 08/14/23 21:01 Dose: 975 mg Al Hydroxide/Mg Hydroxide (Magnesium Hydrox/Alum Hydrox 30 Ml Oral.Susp) 30 ml PO Q6H PRN PRN Reason: Heartburn/Nausea Clonazepam (Clonazepam 1 Mg Tablet) 1 mg PO BEDTIME [facility] Last Admin: 08/25/23 20:34 Dose: 1 mg Duloxetine HCl (Duloxetine Hcl 30 Mg Capsule.Dr) 90 mg PO DAILY [facility] Last Admin: 08/26/23 08:46 Dose: 90 mg Lidocaine (Lidocaine 4 % Patch Adh..Patch) 1 patch TRANSDERMA DAILY [facility]; Protocol Last Admin: 08/26/23 08:47 Dose: 1 patch Lidocaine (Lidocaine 4 % Patch Adh..Patch) 1 patch TRANSDERMA DAILY [facility]; Protocol Last Admin: 08/26/23 08:47 Dose: 1 patch Loperamide HCl (Loperamide Hcl 2 Mg Capsule) 2 mg PO Q6H PRN PRN Reason: loose stool Losartan Potassium (Losartan Potassium 50 Mg Tablet) 50 mg PO BEDTIME [facility]; Protocol Last Admin: 08/25/23 20:33 Dose: 50 mg Magnesium Hydroxide (Milk Of Magnesia 30 Ml Oral.Susp) 30 ml PO DAILY PRN PRN Reason: Constipation Last Admin: 08/09/23 21:24 Dose: 30 ml Magnesium Oxide (Magnesium Oxide 400 Mg Tablet) 400 mg PO BIDPC [facility] Last Admin: 08/26/23 08:46 Dose: 400 mg Naproxen (Naproxen 250 Mg Tablet) 250 mg PO BIDWM [facility] Last Admin: 08/26/23 08:46 Dose: 250 mg Polyethylene Glycol (Polyethylene Glycol 3350 17 Gm Powd.Pack) 17 gm PO DAILY PRN PRN Reason: constipation Pregabalin (Pregabalin 50 Mg Capsule) 50 mg PO TID [facility] Last Admin: 08/26/23 08:46 Dose: 50 mg Senna/Docusate Sodium (Sennosides/Docusate Sodium Tablet) 1 tab PO BID [facility] Last Admin: 08/26/23 08:46 Dose: 1 tab Trazodone HCl (Trazodone Hcl 100 Mg Tablet) 100 mg PO BEDTIME [facility] Last Admin: 08/25/23 20:32 Dose: 100 mg Allergies Allergies Allergy/AdvReac Type Severity Reaction Status Date / Time rosuvastatin [From Crestor] Allergy Mild Dizziness Verified 07/26/23 23:40 sulfacetamide Allergy Mild coma Verified 07/26/23 23:40 [From Sulfacet-R] sulfur [From Sulfacet-R] Allergy Mild coma Verified 07/26/23 23:40 Assessment & Plan Assessment & Plan (1) MDD (major depressive disorder), recurrent episode, moderate: Status: Acute Code(s): F33.1 - Major depressive disorder, recurrent, moderate (2) Generalized anxiety disorder: Status: Acute Code(s): F41.1 - Generalized anxiety disorder (3) Cognitive impairment: Status: Acute Code(s): R41.89 - Other symptoms and signs involving cognitive functions and awareness Plan Mr. Zhou is a 72 year-old male with hx of MDD, feeling of restless which I do suspect may be related to his dx of RLS. He also presents as hopeless and helpless due to multiple stressors including financial, not having as much assistance after divorce and worsening of physical health. We discussed risks, benefits and alternative treatment options. He agreed to stop seroquel as it may be worsening RLS. Try instead clonazepam at bedtime. Once sense of restlessness more undercontrol then will add antidepressant but will suggest either cymbalta or effexor. PLAN 1. Admit to S1, CV, 15 minutes checks for safety 2. continue effexor 37.5mg po daily, will increase in next few days to 75mg po daily. restart lossartan 25mg po daily. pending MOCA/ ACL. continue clonazepam at bedtime but will d/c morning dose due to sedation. 08/01/2023 Will change venlafaxine to duloxetine may eventually have better pain control. Discussed with patient option to increase gabapentin which she did not want to do he is on Seroquel Klonopin at bedtime significant depressive symptoms 08/02/2023 Duloxetine started increase to 30 mg venlafaxine discontinued neuro consult ordered PT consult patient with extreme somatic reaction question somatoform pain disorder try and clarify unclear role for pain management does not want to increase gabapentin complains of side effects 08/03/2019 Continue Cymbalta neuro and PT eval pending would taper gabapentin was not helpful consider Lyrica Tegretol 08/03 increase cymbalta 40mg po daily. pt seen by neurology 08/04 increase cymbalta to 60mg po daily 08/05 dc gabapentin as pt declines to take it as well as ropinirole. start lyrica 25mg po qhs. 08/06 increase lyrica to 50mg po qhs. 08/07 increase lyrica to 50mg po BID. We discussed STOPPING seroquel- as it can worsen RLS which seems difficult to tx and symptoms visible also during the day. Pt explained that other medications are scheduled for sleep which can be adjusted. TRY NOT TO RESTART SEROQUEL for sleep as it may be worsening RLS. miralax added for constipation. 08/08 keep same treatment 08/09 keep same treatment 08/10 continue tx. lower trazodone from 150mg po qhs to 100mg po qhs. 08/11 increase cymbalta to 90mg po daily. 08/12 continue tx. 08/13 continue tx. 08/14 continue treatment 08/16: no changes 08/17 24i lidocaine patch inc lyrica 50 tid 08/19/23 Patient seems much improved x1 day continue lidocaine Lyrica Cymbalta discharge planning 08/20/23 continue to assess effectiveness of pain management for feet and pains effect on depression. discharge planning to include assisted living 08/21/23 TB test ordered; continue tx plan 08/22/23 continue tx 08/22: no changes 08/23: no changes 08/24 continue tx. 08/25 continue tx. Reason for continued inpatient stay Substantial Risk for: inability to function Time Spent With Patient Time: Total time managing care of this patient today ____ minutes.
[2023-08-26 21:14] VITALS: BP 160/74
[2023-08-26] MEDS: Losartan Potassium 50 MG TABLET PO (21:14)
[2023-08-26] MEDS: clonazePAM 1 MG TABLET PO (21:14)
[2023-08-26] MEDS: traZODone HCL 100 MG TABLET PO (21:14)
[2023-08-26 22:17] VITALS: BP 160/74; PULSE 78; RESP 16; TEMP 36.2; O2SAT 95
[2023-08-27 06:00] VITALS: BP 116/68; PULSE 66; RESP 16; TEMP 36.1; O2SAT 98
[2023-08-27] MEDS: Pregabalin 50 MG CAPSULE PO ×3 (08:15→20:22)
[2023-08-27] MEDS: NaPROXEN 250 MG TABLET PO ×2 (08:15→17:13)
[2023-08-27] MEDS: DULoxetine HCl 30 MG CAPSULE.DR 90 MG PO (08:15)
[2023-08-27] MEDS: Sennosides/Docusate Sodium TABLET 1 TAB PO ×2 (08:16→20:23)
[2023-08-27] MEDS: Magnesium Oxide 400 MG TABLET PO ×2 (08:16→17:13)
[2023-08-27] MEDS: Lidocaine 4 % Patch ADH..PATCH 1 PATCH TRANSDERMA ×2 (08:16)
--- NOTE | 2023-08-27 16:47 | P.PNPSI_ITS ---
Subjective Subjective Date of Service: 08/27/23 Reason For Visit: Psychosis Subjective Notes: Conditional Voluntary Interim History: Pt slept through the night. He continue to report mood is okay. He is concern about financial aspects of JED. No SI/HI. feet pain ongoing. No behavioral concerns. Review of Systems Review of Systems chronic foot pain; otherwise Unremarkable Yes all other systems are reviewed and are negative Mental Status Exam Mental Status Exam Patient Appearance: Appropriate Patient Orientation: Person, Place and Situation Level of Consciousness: Awake and Appropriate Patient Behavior: Appropriate Mood Description: Calm and Appropriate Affect Description: Appropriate Patient Cognition Impaired: Yes Ability to Follow Directions: Good Speech Pattern: Clear Diagnostics Vital Signs (24Hr): Vital Signs - 24 hr 08/26/23 21:14 08/26/23 22:17 08/27/23 06:00 Temperature 97.1 F 97.0 F Pulse Rate 78 66 Respiratory Rate 16 16 Blood Pressure 160/74 H 160/74 H 116/68 Pulse Oximetry 95 98 Oxygen Delivery Method Room Air Room Air BMI result Body Mass Index 27.1 Labs 07/26/23 23:41 08/05/23 17:29 Imaging Radiology Impressions: ITS Impressions KUB X-Ray 08/07/23 15:28 IMPRESSION: Mild to moderate stool burden. No evidence of bowel obstruction. Medications Medications Current Medications Acetaminophen (Acetaminophen 325 Mg Tablet) 975 mg PO TID PRN PRN Reason: Pain, Moderate(Pain Scale 4-6) Last Admin: 08/14/23 21:01 Dose: 975 mg Al Hydroxide/Mg Hydroxide (Magnesium Hydrox/Alum Hydrox 30 Ml Oral.Susp) 30 ml PO Q6H PRN PRN Reason: Heartburn/Nausea Clonazepam (Clonazepam 1 Mg Tablet) 1 mg PO BEDTIME [facility] Last Admin: 08/26/23 21:14 Dose: 1 mg Duloxetine HCl (Duloxetine Hcl 30 Mg Capsule.Dr) 90 mg PO DAILY [facility] Last Admin: 08/27/23 08:15 Dose: 90 mg Lidocaine (Lidocaine 4 % Patch Adh..Patch) 1 patch TRANSDERMA DAILY [facility]; Protocol Last Admin: 08/27/23 08:16 Dose: 1 patch Lidocaine (Lidocaine 4 % Patch Adh..Patch) 1 patch TRANSDERMA DAILY [facility]; Protocol Last Admin: 08/27/23 08:16 Dose: 1 patch Loperamide HCl (Loperamide Hcl 2 Mg Capsule) 2 mg PO Q6H PRN PRN Reason: loose stool Losartan Potassium (Losartan Potassium 50 Mg Tablet) 50 mg PO BEDTIME [facility]; Protocol Last Admin: 08/26/23 21:14 Dose: 50 mg Magnesium Hydroxide (Milk Of Magnesia 30 Ml Oral.Susp) 30 ml PO DAILY PRN PRN Reason: Constipation Last Admin: 08/09/23 21:24 Dose: 30 ml Magnesium Oxide (Magnesium Oxide 400 Mg Tablet) 400 mg PO BIDPC [facility] Last Admin: 08/27/23 08:16 Dose: 400 mg Naproxen (Naproxen 250 Mg Tablet) 250 mg PO BIDWM [facility] Last Admin: 08/27/23 08:15 Dose: 250 mg Polyethylene Glycol (Polyethylene Glycol 3350 17 Gm Powd.Pack) 17 gm PO DAILY PRN PRN Reason: constipation Pregabalin (Pregabalin 50 Mg Capsule) 50 mg PO TID [facility] Last Admin: 08/27/23 15:32 Dose: 50 mg Senna/Docusate Sodium (Sennosides/Docusate Sodium Tablet) 1 tab PO BID [facility] Last Admin: 08/27/23 08:16 Dose: 1 tab Trazodone HCl (Trazodone Hcl 100 Mg Tablet) 100 mg PO BEDTIME [facility] Last Admin: 08/26/23 21:14 Dose: 100 mg Allergies Allergies Allergy/AdvReac Type Severity Reaction Status Date / Time rosuvastatin [From Crestor] Allergy Mild Dizziness Verified 07/26/23 23:40 sulfacetamide Allergy Mild coma Verified 07/26/23 23:40 [From Sulfacet-R] sulfur [From Sulfacet-R] Allergy Mild coma Verified 07/26/23 23:40 Assessment & Plan Assessment & Plan (1) MDD (major depressive disorder), recurrent episode, moderate: Status: Acute Code(s): F33.1 - Major depressive disorder, recurrent, moderate (2) Generalized anxiety disorder: Status: Acute Code(s): F41.1 - Generalized anxiety disorder (3) Cognitive impairment: Status: Acute Code(s): R41.89 - Other symptoms and signs involving cognitive functions and awareness Plan Mr. Zhou is a 72 year-old male with hx of MDD, feeling of restless which I do suspect may be related to his dx of RLS. He also presents as hopeless and helpless due to multiple stressors including financial, not having as much assistance after divorce and worsening of physical health. We discussed risks, benefits and alternative treatment options. He agreed to stop seroquel as it may be worsening RLS. Try instead clonazepam at bedtime. Once sense of restlessness more undercontrol then will add antidepressant but will suggest either cymbalta or effexor. PLAN 1. Admit to S1, CV, 15 minutes checks for safety 2. continue effexor 37.5mg po daily, will increase in next few days to 75mg po daily. restart lossartan 25mg po daily. pending MOCA/ ACL. continue clonazepam at bedtime but will d/c morning dose due to sedation. 08/01/2023 Will change venlafaxine to duloxetine may eventually have better pain control. Discussed with patient option to increase gabapentin which she did not want to do he is on Seroquel Klonopin at bedtime significant depressive symptoms 08/02/2023 Duloxetine started increase to 30 mg venlafaxine discontinued neuro consult ordered PT consult patient with extreme somatic reaction question somatoform pain disorder try and clarify unclear role for pain management does not want to increase gabapentin complains of side effects 08/03/2019 Continue Cymbalta neuro and PT eval pending would taper gabapentin was not helpful consider Lyrica Tegretol 08/03 increase cymbalta 40mg po daily. pt seen by neurology 08/04 increase cymbalta to 60mg po daily 08/05 dc gabapentin as pt declines to take it as well as ropinirole. start lyrica 25mg po qhs. 08/06 increase lyrica to 50mg po qhs. 08/07 increase lyrica to 50mg po BID. We discussed STOPPING seroquel- as it can worsen RLS which seems difficult to tx and symptoms visible also during the day. Pt explained that other medications are scheduled for sleep which can be adjusted. TRY NOT TO RESTART SEROQUEL for sleep as it may be worsening RLS. miralax added for constipation. 08/08 keep same treatment 08/09 keep same treatment 08/10 continue tx. lower trazodone from 150mg po qhs to 100mg po qhs. 08/11 increase cymbalta to 90mg po daily. 08/12 continue tx. 08/13 continue tx. 08/14 continue treatment 08/16: no changes 08/17 lidocaine patch inc lyrica 50 tid 08/19/23 Patient seems much improved x1 day continue lidocaine Lyrica Cymbalta discharge planning 08/20/23 continue to assess effectiveness of pain management for feet and pains effect on depression. discharge planning to include assisted living 08/21/23 TB test ordered; continue tx plan 08/22/23 continue tx 08/22: no changes 08/23: no changes 08/24 continue tx. 08/25 continue tx. Reason for continued inpatient stay Substantial Risk for: stable for discharge Time Spent With Patient Time: Total time managing care of this patient today ____ minutes.
[2023-08-27 20:00] VITALS: BP 147/73; PULSE 62; RESP 18; TEMP 36.4; O2SAT 96
[2023-08-27 20:22] VITALS: BP 154/74
[2023-08-27] MEDS: Losartan Potassium 50 MG TABLET PO (20:22)
[2023-08-27] MEDS: traZODone HCL 100 MG TABLET PO (20:22)
[2023-08-27] MEDS: clonazePAM 1 MG TABLET PO (20:23)
[2023-08-28 08:00] VITALS: BP 156/79; PULSE 61; RESP 18; TEMP 36.6; O2SAT 97
[2023-08-28] MEDS: Lidocaine 4 % Patch ADH..PATCH 1 PATCH TRANSDERMA ×2 (08:30→08:31)
[2023-08-28] MEDS: DULoxetine HCl 30 MG CAPSULE.DR 90 MG PO (08:31)
[2023-08-28] MEDS: NaPROXEN 250 MG TABLET PO (08:31)
[2023-08-28] MEDS: Sennosides/Docusate Sodium TABLET 1 TAB PO (08:31)
[2023-08-28] MEDS: Pregabalin 50 MG CAPSULE PO (08:31)
[2023-08-28] MEDS: Magnesium Oxide 400 MG TABLET PO (08:32)
--- NOTE | 2023-08-28 09:01 | PM.PSYDC ---
DS: Providers Provider Date of Service: 08/28/23 Date of admission: 07/28/23 13:32 Primary care physician: Unknown Physician Consults: 08/02/23 23:07 Consult to Neurology Routine Consulting Provider: [facility] Reason for consultation: seen by dr mcfarlane neuropathy minimal ambu Has provider been notified: No 08/05/23 13:49 Consult to Hospitalist Routine Comment: Consulting Provider: Hospitalist Reason For Exam: autonomic dysfun- orthostatic changes to SBP>30) DS: Diagnosis Discharge Diagnosis (1) MDD (major depressive disorder), recurrent episode, moderate: Status: Acute (2) Generalized anxiety disorder: Status: Acute (3) Cognitive impairment: Status: Acute DS: Medications Discharge Medications Home Medications: Previous Rx's ?Medication ?Instructions ?Recorded acetaminophen 325 mg tablet 975 mg (3 x 325 mg) PO TID PRN 08/28/23 Pain, Moderate(Pain Scale 4-6) #90 tabs clonazepam 1 mg tablet 1 mg PO BEDTIME #30 tabs 08/28/23 duloxetine 30 mg capsule,delayed 90 mg (3 x 30 mg) PO DAILY #90 caps 08/28/23 release lidocaine 4 % topical patch 1 patch transdermal DAILY #30 ea 08/28/23 (Lidocaine Pain Relief) lidocaine 4 % topical patch 1 patch transdermal DAILY #30 ea 08/28/23 (Lidocaine Pain Relief) losartan 50 mg tablet 50 mg PO BEDTIME #30 tabs 08/28/23 magnesium oxide 400 mg (241.3 mg 400 mg PO BIDPC #30 tabs 08/28/23 magnesium) tablet naproxen 250 mg tablet 250 mg PO BIDWM #60 tabs 08/28/23 pregabalin 50 mg capsule (Lyrica) 50 mg PO TID #90 caps 08/28/23 sennosides 8.6 mg-docusate sodium 1 tab PO BID PRN no BM in 3days 08/28/23 50 mg tablet (Senna Plus) #60 tabs trazodone 100 mg tablet 100 mg PO BEDTIME #30 tabs 08/28/23 Mental Status Exam Mental Status Exam Narrative: Appearance: wearing hospital gown, fair hygiene, in NAD Behavior: cooperative Psychomotor: some tapping feet,no agitation or retardation noted Speech: clear, normal rate/rhythm/volume, spontaneous TP: linear TC:calmer, looking forward to transition to [facility]. Mood: good Affect: congruent SI: none HI: none VH/AH: none Delusions: none Insight/judgment: fair x 2. Memory/cog: alert, oriented x 3. Data Data Completed and Pending Completed studies during hospitalization [Text1]: 08/21/23 14:20 TB Test (T-Spot) Com Negative TB Test Nil Control Passed TB Test Panel A 1 TB Test Panel B 0 TB Test Positive Cntrl Passed Imaging Diagnostic Imaging Impressions KUB X-Ray 08/07/23 15:28 IMPRESSION: Mild to moderate stool burden. No evidence of bowel obstruction. DS: Summary Hospital Course Hospital Course: Mr. Zhou is a 72 year-old male with hx of MDD, anxiety disorder who was brought via EMS on sect [address] by police after son contacted [employer] police due to pt telling his son that he was going to end his life. In the ED, pt disclosed multiple stressors including worsening of physical health (neuropathic pain, RLS, plantar fasciitis), financial stress, lack of supports at home after divorce 2 years ago of of 42 years. Utox was negative. On the unit, pt reports feeling restless, ongoing sense of anxiety which he reports has been going on for about one year. He reports pain when ambulating. He also reports feeling very overwhelmed with financial situation after divorce including the fact that he lost health insurance. He denies hx of VH/AH. He reports feeling very hopeless and helpless. He reports he called his son to tell him that he can't keep going on as he is. He states he feels frustrated, terribly anxious Past Psychiatric History: Inpt: one prior last year at [facility] OP: none at the moment HOSPITAL COURSE On the unit, pt was admitted on a CV and placed on 15 minutes checks for safety. Pt initially presented as dysphoric, very anxious and restless. He presented as helpless, hopeless. He appeared overwhelmed with impairment problem solving skills. He reported feet pain- which it seems it is due to different sources on neuropathy, and RLS. He was seen by neurology for feet pain, recommended gabapentin and ropinirole but pt reported worsening of symptoms with these medications. He was then started on jayshree with fair effect. He had been on clonidine for anxiety and hypertension. However, pt had significant orthostatic instability with drop in SBP of more than 20, but not hypotensive. No rebound tachycardia. In terms of mood, he was started on cymbalta for depression and hoping to have a therapeutic benefit on neuropathic pain. This medication was titrated to 90mg po daily, which he tolerated well. His affect appeared calmer, less irritable and despondent. No SI/HI. Memory/cognition were assessed with MOCA and ACL. MOCA scored was 19/30 with main impairments in visuo spatial, executive function, and recall with intact orientation. His ACL- which asseses functional cognition showed an even greater cognitive impairment with a score of 3.6- showing severe impairment in his problem solving abilities. We had family meeting to discuss his overall presentation which includes mood changes in setting of severe cognitive impairments affecting his ability to care for himself. Some improvement was seen in his mood during this admission but cognitive impairments did not necessarily improved. Status at Discharge Cognitive/behavioral status at discharge: pt with brighter, non labile affect. No SI/HI. No psychosis or delusions. Sleeping better. No aggression towards self or others. underlying cognitive impairments noted in executive function, recall. Time Spent with Patient Time attestation: Total time managing care of this patient today ____ minutes. Discharge Plan Discharge Anticipated Discharge Date/Time: 08/28/23 08:48 Patient Disposition: Home, Self-Care Discharge Diagnosis: MDD, recurrent, moderate Cognitive impairment Referrals: [facility] and [facility] [Other] - 09/29/23 10:00 am (Your first psychiatry appointment is with Lindsay Nielsen NP on 09/29/23 at 10am. This appointment will be virtual and they will contact you ahead of appointment for reminders. ) [facility] [Other] - 09/24/23 4:00 pm (Your appointment for primary care at [facility] with CAMILA Gibson is scheduled for at 4PM. Please make every effort to attend.) [facility] [Other] - 08/28/23 11:30 am (Transfer to [facility] on 08/28/23 at 1130. ) Discharge Medications: New losartan 50 mg Tablet 50 mg PO BEDTIME Qty: 30 0RF Protocol: Hold for SBP< HOLD for SBP < : 90 acetaminophen 325 mg Tablet 975 mg PO TID PRN (Reason: Pain, Moderate(Pain Scale 4-6)) Qty: 90 0RF clonazepam 1 mg Tablet 1 mg PO BEDTIME Qty: 30 0RF naproxen 250 mg Tablet 250 mg PO BIDWM Qty: 60 0RF magnesium oxide 400 mg (241.3 mg magnesium) Tablet 400 mg PO BIDPC Qty: 30 0RF trazodone 100 mg Tablet 100 mg PO BEDTIME Qty: 30 0RF duloxetine 30 mg Capsule,Delayed Release(Dr/Ec) 90 mg PO DAILY Qty: 90 0RF pregabalin [Lyrica] 50 mg Capsule 50 mg PO TID Qty: 90 0RF sennosides-docusate sodium [Senna Plus] 8.6-50 mg Tablet 1 tab PO BID PRN (Reason: no BM in 3days) Qty: 60 0RF lidocaine [Lidocaine Pain Relief] 4 % Adhesive Patch,Medicated 1 patch transdermal DAILY Qty: 30 0RF Protocol: Apply to: Apply to: l dorsal foot lidocaine [Lidocaine Pain Relief] 4 % Adhesive Patch,Medicated 1 patch transdermal DAILY Qty: 30 0RF Protocol: Apply to: Apply to: r dorsal foot Discontinued quetiapine 25 mg tablet 25 mg PO BID PRN (Reason: anxiety) clonidine HCl 0.2 mg tablet 0.2 mg PO BID PRN (Reason: Anxiety) hydroxyzine HCl 25 mg tablet 25 mg PO TID gabapentin 100 mg capsule 100 mg PO BEDTIME quetiapine 100 mg tablet 100 mg PO BEDTIME gabapentin 300 mg capsule 300 mg PO DAILY Discharge Orders: Discharge Order (Routine); Ordered 08/28/23 Ordered By: Haylee Art Diet: Regular diet Activity on Discharge: As tolerated Stand Alone Forms: Patient Portal Discharge page, Community Support Print Language: Maldivian Care Plan Goals: 1. Maintain mood 2. No SI/HI Health Concerns: follow up with PCP. Foot pain. Plan of Treatment: 1. take medications as prescribed 2. Go to nearest ED or call 911 in event of emergency Assessment: Pt with brighter affect. Much less restless, less dysphoric. Less irritability s/s to depression. No VH/AH. No delusional content. Cognitive impairment noted in assessments. Sleeping well. Discharge Date/Time: 08/28/23 11:27
--- NOTE | 2023-08-28 11:43 | PC.NURSE ---
Patient was aware of discharge, reported readiness for discharge. D/C instructions, medications, f/u appointments given to the patient and Ismael ([facility]). Pt took his belongings. Left the unit at 11:27 accompanied by Ismael from [facility].
== END 2023-08-28 11:27 | disposition home or self-care (01) | DRG 885 ==
LOC: HO.ED 07-27 01:05 → HO.PGERI 07-28 14:30
PROVIDERS: Clinical Nurse Specialist Psychiatric/Mental Health; Emergency Medicine; Admitting Provider Social Worker; Emergency Provider Emergency Medicine; Visit Provider Social Worker
DX: F33.1 Major depressive disorder, recurrent, moderate (principal); G25.81 Restless legs syndrome; R41.89 Other symptoms and signs involving cognitive functions and awareness; K59.00 Constipation, unspecified; F41.1 Generalized anxiety disorder; Z20.822 Contact with and (suspected) exposure to COVID-19; Z79.899 Other long term (current) drug therapy
CPT/HCPCS: 36415; 74018; 80048; 80053; 80061; 80076; 80143; 80179; 80307; 81001; 82140; 82607; 83036; 84443; 85025; 85652; 86038; 86140; 86481; 87635; 93005; 97162; 99285; J1200; J2060; S9485

== ENCOUNTER → 2023-07-27 11:05 | Outpatient (BNV) | payer MEDICARE, SELFPAY | PROVIDERS: Emergency Provider Emergency Medicine; Visit Provider Internal Medicine | DX: R00.1 Bradycardia, unspecified (principal) | CPT/HCPCS: 93010 ==

== ENCOUNTER → 2023-07-28 13:32 | Outpatient (BNV) | payer MEDICARE, SELFPAY | PROVIDERS: Admitting Provider Social Worker; Emergency Provider Emergency Medicine; Visit Provider Psychiatry & Neurology Neurology | DX: M79.671 Pain in right foot (principal); M79.672 Pain in left foot; G25.81 Restless legs syndrome | CPT/HCPCS: 99222 ==

== ENCOUNTER → 2023-07-28 13:32 | Outpatient (BNV) | payer OTHER, SELFPAY | PROVIDERS: Admitting Provider Social Worker; Emergency Provider Emergency Medicine; Visit Provider Social Worker | DX: F33.1 Major depressive disorder, recurrent, moderate (principal); F41.1 Generalized anxiety disorder; R41.89 Other symptoms and signs involving cognitive functions and awareness | CPT/HCPCS: 90792; 99231; 99232; 99238 ==

== ENCOUNTER → 2023-07-28 13:32 | Outpatient (BNV) | payer OTHER, SELFPAY | PROVIDERS: Admitting Provider Social Worker; Emergency Provider Emergency Medicine; Visit Provider Psychiatry & Neurology Psychiatry | DX: F33.1 Major depressive disorder, recurrent, moderate (principal); F41.1 Generalized anxiety disorder; R41.89 Other symptoms and signs involving cognitive functions and awareness | CPT/HCPCS: 99231; 99232 ==

== ENCOUNTER 2023-09-04 10:44 | Day surgery (SDC) | payer MEDICARE, SELFPAY ==
[2023-09-02 14:12] VITALS: BMI 23.2
--- NOTE | 2023-09-03 10:34 | HO.ANESPROP2 ---
HPI - Anesthesia Eval Consult details Narrative: 73yo F for Colonoscopy PMFSH Active Problems Active Problems: All Active Problems Cognitive impairment (Acute) Foot pain (Acute) Generalized anxiety disorder (Acute) MDD (major depressive disorder), recurrent episode, moderate (Acute) Anxiety (Acute) Pre-op examination (Acute) Tubulovillous adenoma (Acute) Raynauds phenomenon (Acute) Spondylolisthesis, lumbar region (Acute) Lumbar degenerative disc disease (Acute) Restless legs syndrome (Acute) Tubular adenoma of colon (Acute) Plantar fasciitis (Acute) Lower extremity edema (Acute) Peripheral neuropathy (Acute) Insomnia (Acute) Major depression (Acute) Generalized anxiety disorder with panic attacks (Acute) Hypertension (Acute) Staph skin infection (Acute) Past Medical History Medical History Cognitive impairment DDD (degenerative disc disease), lumbar Restless legs syndrome (RLS) HTN (hypertension) Raynauds phenomenon Anxiety MDD (major depressive disorder) Family History Family History Maternal Grandmother Throat cancer Surgical History Surgical History H/O colonoscopy Social History Social History Household Members: None Housing: Apartment Do you presently have visiting nurse or other home services: No Patient Tobacco Use Status: Former Tobacco user Second Hand Smoke Exposure: No service: No Sexual orientation: Straight/Heterosexual Meds Allergies Allergy/AdvReac Type Severity Reaction Status Date / Time sulfacetamide Allergy Severe coma Verified 09/02/23 14:03 [From Sulfacet-R] sulfur [From Sulfacet-R] Allergy Severe coma Verified 09/02/23 14:03 rosuvastatin [From Crestor] Allergy Mild Dizziness Verified 07/26/23 23:40 Home Medications ?Medication ?Instructions ?Recorded ?Confirmed ?Last Taken ?Type clonidine HCl 0.2 mg tablet 0.2 mg PO BID PRN Anxiety 09/02/23 09/02/23 Unknown History gabapentin 100 mg capsule 100 mg PO DAILY 09/02/23 09/02/23 Unknown History Exam Height,Weight and Vital Signs: Height 5 ft 10 in Weight 73.482 kg Pertinent Lab Results Pertinent Lab Results: Laboratory Tests 07/26/23 08/05/23 23:41 17:29 WBC 11.3 H Hgb 14.1 Hct 39.9 L Plt Count 235 Sodium 141 Potassium 4.1 D Chloride 105 Carbon Dioxide 30 H BUN 18 H Creatinine 0.94 Assessment and Plan Assessment Anesthesia Assessment: Chart Reviewed
--- NOTE | 2023-09-04 11:47 | MHC.SHP ---
Pre-Procedural Eval Section A - 24 Hr Update-Section A only Date of Service: 09/04/23 Section B - Complete if H&P > 30 days Chief Complaint: Benign neoplasm, unspecified site Relevant Family History (Specify if Yes): No Relevant Social History: None Present Medications: see Short Stay Collaborative assessment Medical History: Significant History (Cognitive impairment DDD (degenerative disc disease), lumbar Restless legs syndrome (RLS) HTN (hypertension) Raynauds phenomenon Anxiety MDD (major depressive disorder)) History of Previous Operations: Relevant previous surgery/procedure and date(s) (colonoscopy) Allergies: Allergies Allergy/AdvReac Type Severity Reaction Status Date / Time sulfacetamide Allergy Severe coma Verified 09/02/23 14:03 [From Sulfacet-R] sulfur [From Sulfacet-R] Allergy Severe coma Verified 09/02/23 14:03 rosuvastatin [From Crestor] Allergy Mild Dizziness Verified 07/26/23 23:40 Review of Systems Sugical H&P ROS: Negative: Constitution, Cardiovascular, Respiratory, Neurological, Psychiatric, Hem-Onc, Allergic/Immunologic, Gastrointestinal, Genitourinary, Musculoskeletal, Integumentary, Endocrine and Eyes/Ears/Nose/Throat Exam Surgical H&P Exam: Normal: HEENT, Normal: Heart, Normal: Lungs, Normal: Extremities, Normal: Abdomen, Normal: Skin and Normal: Neurological Plan Diagnosis/Plan: Unchanged I have reviewed the history and physical and performed a pertinent physical examination on my patient. No changes have occurred unless specified. Time Spent With Patient Time: Total time managing care of this patient today ____ minutes.
--- NOTE | 2023-09-04 12:25 | P.CONAN_ITS ---
[facility] Active Problems Active Problems: All Active Problems Cognitive impairment (Acute) Foot pain (Acute) Generalized anxiety disorder (Acute) MDD (major depressive disorder), recurrent episode, moderate (Acute) Anxiety (Acute) Pre-op examination (Acute) Tubulovillous adenoma (Acute) Raynauds phenomenon (Acute) Spondylolisthesis, lumbar region (Acute) Lumbar degenerative disc disease (Acute) Restless legs syndrome (Acute) Tubular adenoma of colon (Acute) Plantar fasciitis (Acute) Lower extremity edema (Acute) Peripheral neuropathy (Acute) Insomnia (Acute) Major depression (Acute) Generalized anxiety disorder with panic attacks (Acute) Hypertension (Acute) Staph skin infection (Acute) Past Medical History Medical History Cognitive impairment DDD (degenerative disc disease), lumbar Restless legs syndrome (RLS) HTN (hypertension) Raynauds phenomenon Anxiety MDD (major depressive disorder) Functional capacity: independent ambulation Family History Family History Maternal Grandmother Throat cancer Family history of problems with anesthesia: No Surgical History Surgical History H/O colonoscopy History of Problems with Anesthesia: No Social History Social History Household Members: None Housing: Apartment Do you presently have visiting nurse or other home services: No Patient Tobacco Use Status: Never used Tobacco Second Hand Smoke Exposure: No Advance Directives: No Advance Directives Information Provided: Yes Advance Directives on File: No service: No Sexual orientation: Straight/Heterosexual Meds Allergies Allergy/AdvReac Type Severity Reaction Status Date / Time sulfacetamide Allergy Severe coma Verified 09/02/23 14:03 [From Sulfacet-R] sulfur [From Sulfacet-R] Allergy Severe coma Verified 09/02/23 14:03 rosuvastatin [From Crestor] Allergy Mild Dizziness Verified 07/26/23 23:40 Active Medications: Current Medications Lactated Ringer's (Lr) 1,000 mls @ 100 mls/hr IVCONT .Q10H JANNETTE Home Medications ?Medication ?Instructions ?Recorded ?Confirmed ?Last Taken ?Type clonidine HCl 0.2 mg tablet 0.2 mg PO BID PRN Anxiety 09/02/23 09/02/23 Unknown History gabapentin 100 mg capsule 100 mg PO DAILY 09/02/23 09/02/23 Unknown History Exam Height,Weight and Vital Signs: Height 5 ft 10 in Weight 73.482 kg Airway Mallampati Class: II TM Dist: >3cm Neck ROM: Full Heart: RRR Lungs: CTA Assessment and Plan Assessment Anesthesia Assessment: Anesthesia Plan Discussed Final Anesthetic Review Family History of Problems with Anesthesia: No History of Problems with Anesthesia: No NPO: Yes ASA Class: II Final Preanesthetic Review: Meds/Allgs Chart Reviewed, Consent Obtained/Reviewed and Anes Risks/Benef Reviewed Patient Risk: Low Procedure Risk: Low Anesthetic Plan Anesthetic Plan: MAC: Disposition: Standard PACU
[2023-09-04 12:40] VITALS: BP 148/76; PULSE 73; RESP 18; TEMP 36.3; O2SAT 98; BMI 23.0
[2023-09-04] MEDS: Lactated Ringers 1,000 ML 100 ML IVCONT (12:46)
--- NOTE | 2023-09-04 13:27 | P.OP_ITS ---
Operative Note Operative Note Date of Service: 09/04/23 Narrative: Operative Information Procedure Description: Colonoscopy Indication: hx of colon polyps Anesthesia: MAC COLONOSCOPY Instrument: Olympus variable stiffness pediatric scope 190L Colonoscopy Monitoring: Vital signs and clinical assessment, continuous EKG monitoring, Pulse oximetry, Carbon Dioxide monitoring and blood pressure monitoring were done throughout the procedure. Colon withdrawal time was 19 minutes. Procedure: The patient was placed in the left lateral decubitis position and pre-procedure medications were administered. After a digital rectal examination of the ano-rectum, the video colonoscope was inserted into the rectum and advanced through the colon to the cecum/TI. The colonoscope was slowly withdrawn in a retrograde panoramic fashion and the colon mucosa was carefully examined including a retroflexed view of the rectum. Findings and interventions are described below. Procedure Difficulty: easy Findings: Terminal Ileum-normal Cecum: around appendiceal orifice possible diminutive polyp, removed with cold forceps, another lateral granular spreading polyp in cecum 12-13 mm, lateral wall, lifted with eleview and then removed with cold snare with x 2 clips applied to close defect Ascending Colon: few small diverticula seen Transverse Colon -normal Descending Colon:normal Sigmoid Colon: mild diverticulosis Rectum: Retroflexion with small internal hemorrhoids seen, grade I Anorectum - normal Intervention: cold snare, eleview injection, cold forceps Colon preparation: [place] Bowel Preparation Scale Right colon; 2 Transverse colon: 2 Left colon; 2 (0 = Unprepared colon segment with mucosa not seen due to solid stool that cannot be cleared. 1 = Portion of mucosa of the colon segment seen, but other areas of the colon segment not well seen due to staining, residual stool and/or opaque liquid. 2 = Minor amount of residual staining, small fragments of stool and/or opaque liquid, but mucosa of colon segment seen well. 3 = Entire mucosa of colon segment seen well with no residual staining, small fragments of stool or opaque liquid) Impression and Post Procedure Diagnosis: diverticulosis colon polyps internal hemorrhoids Plan: High fiber diet leaflet Avoid straining at stool, epsom salts and sitz bath, anusol supps or cream Repeat Colonoscopy in 1-2 years or earlier if clinically indicated Above findings were reviewed with the patient and relevant handouts were provided if indicated.
[2023-09-04 13:32] VITALS: BP 135/75; PULSE 71; RESP 16; TEMP 36.1; O2SAT 97
[2023-09-04 13:47] VITALS: BP 121/74; PULSE 67; RESP 16; TEMP 36.4; O2SAT 98
--- NOTE | 2023-09-04 14:44 | HO.POSTANES ---
Post Anesthesia Evaluation Post Anesthesia Evaluation Date of Service: 09/04/23 Vital Signs: Vital Signs Temp Pulse Resp BP Pulse Ox O2 Del Method 09/04/23 13:47 97.5 F 67 16 121/74 98 Room Air 09/04/23 13:32 97 F 71 16 135/75 97 Room Air 09/04/23 12:40 97.4 F 73 18 148/76 H 98 Room Air Anesthesia: Monitored Mental Status: Awake Pain Control: Satisfactory Nausea/Vomiting: None Hydration: Adequate Anesthesia-Related Issues: No Anes. Related Issues
== END 2023-09-04 14:33 | disposition home or self-care (01) ==
PROVIDERS: PCP Nurse Practitioner Family; Visit Provider Internal Medicine Gastroenterology
PROC: 0DJD8ZZ Inspection of Lower Intestinal Tract, Via Natural or Artificial Opening Endoscopic (ICD-10-PCS; CPT 45378; principal; 2023-09-04 13:50)
DX: Z12.11 Encounter for screening for malignant neoplasm of colon (principal); Z86.010 Personal history of colon polyps; D12.0 Benign neoplasm of cecum; K57.30 Diverticulosis of large intestine without perforation or abscess without bleeding; K64.0 First degree hemorrhoids; I73.00 Raynaud's syndrome without gangrene; I10 Essential (primary) hypertension; F32.9 Major depressive disorder, single episode, unspecified; F41.8 Other specified anxiety disorders; Z79.899 Other long term (current) drug therapy; Z88.2 Allergy status to sulfonamides; Z88.8 Allergy status to other drugs, medicaments and biological substances; Z87.891 Personal history of nicotine dependence
CPT/HCPCS: 45385; 45380; 45381; 88305; J2704

== ENCOUNTER → 2023-09-04 10:44 | Outpatient (BNV) | payer MEDICARE, SELFPAY | PROVIDERS: PCP Nurse Practitioner Family; Visit Provider Internal Medicine Gastroenterology | DX: Z12.11 Encounter for screening for malignant neoplasm of colon (principal); Z86.010 Personal history of colon polyps; D12.0 Benign neoplasm of cecum; K63.5 Polyp of colon; K57.90 Diverticulosis of intestine, part unspecified, without perforation or abscess without bleeding; K64.0 First degree hemorrhoids | CPT/HCPCS: 45380; 45381; 45385 ==

== ENCOUNTER 2023-09-18 12:07 | Outpatient (AMB) | payer MEDICARE, SELFPAY ==
--- NOTE | 2023-09-18 12:13 | A.OFFVIS_ITS ---
Vital Signs 09/18/23 12:33 Height 5 ft 10 in Weight 159 lb 9.835 oz BMI 22.9 BP 161/87 H Blood Pressure Location Rt brachial Position Sitting Pulse 79 Intake Visit Reasons: s/p [place] Dr. Bran Intake Note: Tao presents in follow up colonoscopy performed on 09/04/23. CC: Patient reports doing well and denies having any GI symptoms or concerns today. 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 Code(s): D36.9 - Benign neoplasm, unspecified site (2) Pre-op examination: Code(s): Z01.818 - Encounter for other preprocedural examination Plan Upon entering the room the patient is pacing back and forth in agitation, panting, groaning, and seems to be in distress. I ask confuse all right and he says ?no, I have really blood plantar fasciitis and neuropathy and it is really painful right now. ? He also seems to have some element of emotional agitation as he immediately launches into how his son is going to be upset with him because he is in pain tonight, that he recently his and lost his health insurance, that he is losing his primary care doctor, and he is uncertain about his insurance coverage. He also seems to have some psychiatric problems a nd I note that he is on Seroquel with no diagnosis to explain this and I doubt that it is only for insomnia. It is somewhat difficult to refocus him on the task at hand which is that he needs a repeat colonoscopy due to a very large tubulovillous adenoma removed in July of 2022 at [facility]. 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 He does not like to take more pills saying ?I already have too many pills,? so I will try sending him some MiraLax. He denies any upper stomach problems. He denies any cardiac or respiratory problems. He denies any prior problems with anesthesia or sedation. No ID problems. Orders: Orders Complete Blood Count Auto Diff Today D36.9 - Benign neoplasm, unspecified site, Z01.818 - Encounter for other preprocedural examination Comprehensive Met. Panel Today D36.9 - Benign neoplasm, unspecified site, Z01.818 - Encounter for other preprocedural examination Colonoscopy - GI Use Only Today D36.9 - Benign neoplasm, unspecified site, Z01.818 - Encounter for other preprocedural examination Medications: New sodium,potassium,mag sulfates 17.5-3.13-1.6 gram (Suprep Bowel Prep Kit) DILUTE; drink full amount early evening before AND next morning at least 2 hr before procedure; follow w 960 mL water PO 354 mL 0RF D36.9 - Benign neoplasm, unspecified site polyethylene glycol 3350 (Miralax) 17 grams PO DAILY 30 days 510 grams 6RF LABS: Laboratory Tests 07/26/23 08/05/23 23:41 17:29 WBC 11.3 H Hgb 14.1 Hct 39.9 L Plt Count 235 Estimated GFR > 60 Total Bilirubin 0.3 AST 24 ALT 34 Alkaline Phosphatase 96 C-Reactive Protein 0.11 COLONOSCOPY 09/04/23 Findings: Terminal Ileum-normal Cecum: around appendiceal orifice possible diminutive polyp, removed with cold forceps, another lateral granular spreading polyp in cecum 12-13 mm, lateral wall, lifted with eleview and then removed with cold snare with x 2 clips applied to close defect Ascending Colon: few small diverticula seen Transverse Colon -normal Descending Colon:normal Sigmoid Colon: mild diverticulosis Rectum: Retroflexion with small internal hemorrhoids seen, grade I Anorectum - normal Intervention: cold snare, eleview injection, cold forceps Impression and Post Procedure Diagnosis: diverticulosis colon polyps internal hemorrhoids Plan: High fiber diet leaflet Avoid straining at stool, epsom salts and sitz bath, anusol supps or cream Repeat Colonoscopy in 1-2 years or earlier if clinically indicated BIOPSY Received: 09/04/23 Diagnosis A. Colon, cecum polyp, biopsy: Polypoid colonic mucosa with a lymphoid aggregate; negative for dysplasia. B. Colon, cecum polyp #2, polypectomy: Tubular adenoma; negative for high-grade dysplasia. TODAY'S VISIT He is agreeable to a 2 year follow up. The procedure was well tolerated. The results were explained and the patient is agreeable to the follow-up interval as stated. The bowel pattern has returned to normal. Education was provided to tell any 1st degree relatives about their findings to be sure that they are screened by age 45. Educated that they will be put on a recall list when it is time for their repeat scope but should they move out of state or away from the hospital they will need to remember along with their primary to repeat the procedure in a timely fashion to avoid any adverse complications. [facility] Medical History Cognitive impairment DDD (degenerative disc disease), lumbar Restless legs syndrome (RLS) HTN (hypertension) Raynauds phenomenon Anxiety MDD (major depressive disorder) Surgical History H/O colonoscopy Family History Maternal Grandmother Throat cancer Social History Household Members: None Housing: Apartment Do you presently have visiting nurse or other home services: No Patient Tobacco Use Status: Former Tobacco user e-Cigarette/Vaping Use: Never Used Second Hand Smoke Exposure: No service: No Current occupational status: retired Sexual orientation: Straight/Heterosexual Cognitive needs: No Hearing needs: No Vision needs: No Review of Systems Const Denies fatigue, Denies fever(s), Denies night sweats, Denies poor appetite and Denies weight loss ENT Reports Normal hearing present, Denies dental pain, Denies dysphagia, Denies hea ring loss, Denies mouth pain, Denies odynophagia, Denies throat swelling, Denies tongue swelling and Reports other (Dentition adequate) Card Reports no additional complaints Resp Reports no additional complaints GI Details: Denies abdominal pain, Denies melena, Denies bloating, Denies hematochezia, Reports constipation, Denies GI cramping, Denies dysphagia, Denies excessive flatus, Denies early satiety, Denies heartburn, Denies diarrhea, Denies nausea, Denies odynophagia, Denies vomiting and Denies hematemesis Musc Reports back pain, Reports myalgias and Reports numbness Skin/Breast Denies pruritus, Denies lesions, Denies rash and Denies jaundice Neuro Reports Normal hearing present, Denies Abnormal speech present, Reports numbness and Reports paresthesias Endo Denies fatigue Aller/Immun Denies throat swelling and Denies tongue swelling Physical Exam Vital Signs: Last Vital Signs Pulse 79 09/18/23 12:33 BP 161/87 H 09/18/23 12:33 BMI result Body Mass Index 22.9 Const General: cooperative, no acute distress, well developed and well groomed Nutritional Appearance: average body habitus and well nourished Orientation/consciousness: oriented to person, oriented to place and oriented to time Limitations: No language barrier HEENT Head: Yes normocephalic and Yes atraumatic Eyes General: appearance normal, both eyes and all related structures Pupils: Equal, round and reactive pupils present Neck Neck: Yes normal visual inspection and Yes no lymphadenopathy Thyroid: Thyroid normal Resp Effort & Inspection: normal respiratory effort and able to speak in complete sentences Auscultation: clear to auscultation bilaterally Cardio Rate: regular rate Rhythm: regular rhythm Heart sounds: Normal, physiologic split S2 sound present Peripheral pulses: radial pulses present and posterior tibial pulses present GI Inspection: No distended and No Abdominal panniculus present Palpation (GI): Soft to palpation, nontender, no guarding, not rigid and No hepatosplenomegaly present Percussion: Yes normal to percussion Auscultation: normal bowel sounds Rectal Exam - Male: Yes deferred Skin General skin exam: no rashes or lesions noted, turgor normal, skin not dry, no jaundice, No spider nevi and no striae Rashes: no rashes Nails: normal Neuro General: oriented to person, oriented to place and oriented to time Cranial nerves: Yes Equal, round and reactive pupils present and Yes Normal hearing present Speech: No Abnormal speech present Extrem General: Yes normal to inspection, No clubbing, No cyanosis and No edema Psych Appearance: grossly normal and well kempt Mental Status: mental status grossly normal Speech and movement: Normal speech and movement present Affect: normal affect Attitude: cooperative Thought process: Normal thought process present and not confabulating Thought content: Normal thought content present Insight: Poor insight present (Psych) Judgement: Poor judgement present (Psych) Results Reviewed Results Reviewed: Laboratory Tests 07/26/23 08/05/23 23:41 17:29 WBC 11.3 H Hgb 14.1 Hct 39.9 L Plt Count 235 Estimated GFR > 60 Total Bilirubin 0.3 AST 24 ALT 34 Alkaline Phosphatase 96 C-Reactive Protein 0.11 COLONOSCOPY 09/04/23 Findings: Terminal Ileum-normal Cecum: around appendiceal orifice possible diminutive polyp, removed with cold forceps, another lateral granular spreading polyp in cecum 12-13 mm, lateral wall, lifted with eleview and then removed with cold snare with x 2 clips applied to close defect Ascending Colon: few small diverticula seen Transverse Colon -normal Descending Colon:normal Sigmoid Colon: mild diverticulosis Rectum: Retroflexion with small internal hemorrhoids seen, grade I Anorectum - normal Intervention: cold snare, eleview injection, cold forceps Impression and Post Procedure Diagnosis: diverticulosis colon polyps internal hemorrhoids Plan: High fiber diet leaflet Avoid straining at stool, epsom salts and sitz bath, anusol supps or cream Repeat Colonoscopy in 1-2 years or earlier if clinically indicated BIOPSY Received: 09/04/23 Diagnosis A. Colon, cecum polyp, biopsy: Polypoid colonic mucosa with a lymphoid aggregate; negative for dysplasia. B. Colon, cecum polyp #2, polypectomy: Tubular adenoma; negative for high-grade dysplasia. Assessment & Plan Assessment & Plan (1) Tubulovillous adenoma: Comment: 08/2023= 1 TA REPEAT 5 YEARS; 30MM removed 06[place]2022 [place] [facility] [place] Code(s): D36.9 - Benign neoplasm, unspecified site Category: Medical (2) Cognitive impairment: Code(s): R41.89 - Other symptoms and signs involving cognitive functions and awareness Category: Medical Plan He is agreeable to a 2 year follow up. The procedure was well tolerated. The results were explained and the patient is agreeable to the follow-up interval as stated. The bowel pattern has returned to normal. Education was provided to tell any 1st degree relatives about their findings to be sure that they are screened by age 45. Educated that they will be put on a recall list when it is time for their repeat scope but should they move out of state or away from the hospital they will need to remember along with their primary to repeat the procedure in a timely fashion to avoid any adverse complications. Coding Level of Care Code Est Pt Level 3 (36484) Diagnoses Tubulovillous adenoma D36.9 Cognitive impairment R41.89
[2023-09-18 12:33] VITALS: BP 161/87; PULSE 79; BMI 22.9
== END 2023-09-18 12:49 | disposition home or self-care (01) ==
PROVIDERS: PCP Nurse Practitioner Family; Visit Provider Nurse Practitioner
DX: D36.9 Benign neoplasm, unspecified site (principal); R41.89 Other symptoms and signs involving cognitive functions and awareness
CPT/HCPCS: 99213

== ENCOUNTER → 2023-09-18 12:07 | Outpatient (BNVA) | payer MEDICARE, SELFPAY | PROVIDERS: PCP Nurse Practitioner Family; Visit Provider Nurse Practitioner | DX: D36.9 Benign neoplasm, unspecified site (principal); R41.89 Other symptoms and signs involving cognitive functions and awareness | CPT/HCPCS: 99212 ==

== ENCOUNTER 2023-09-24 16:02 | Outpatient (AMB) | payer MEDICARE, SELFPAY ==
--- NOTE | 2023-09-24 16:06 | A.OFFPC_ITS ---
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 Intake Note: Patient here to establish care Allergies sulfacetamide [From Sulfacet-R] Allergy (Severe, Verified 09/24/23 17:55) coma sulfur [From Sulfacet-R] Allergy (Severe, Verified 09/24/23 17:55) coma rosuvastatin [From Crestor] Allergy (Mild, Verified 09/24/23 17:55) Dizziness Medication List - Last Reconciled 09/24/23 by CAMILA Rachel- acetaminophen 975 mg (3 x 325 mg) PO TID PRN clonazepam 1 mg PO BEDTIME clonidine HCl 0.2 mg PO BID PRN duloxetine 90 mg (3 x 30 mg) PO DAILY lidocaine 4% (Lidocaine Pain Relief) 1 patch See Protocol transdermal DAILY losartan 50 mg See Protocol PO BEDTIME magnesium oxide 400 mg PO BIDPC naproxen 250 mg PO BIDWM pregabalin (Lyrica) 50 mg PO TID sennosides-docusate sodium 8.6-50 mg (Senna Plus) 1 tab PO BID PRN trazodone 100 mg PO BEDTIME Tobacco use date assessed: 09/24/23 Fall risk assessment: 1 Fall in past year Last assessed Fall Risk: 09/24/23 Dental Screening Dental Screen Date: 09/24/23 Did you have a dental visit in the last 12 months?: Yes Did you have a dental problem in the last 6 months where you did not have access to dental care?: No Was dental information given to patient?: Patient has dentist 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 HTN: Blood pressure is stable, managed with losartan 50mg. Will order labs. Denies chest pain, shortness of breath, headache, dizziness, and blurred vision. Pt has a hx of elevated fasting blood sugar. A1C in office today is 5.2. Denies polyuria, polydipsia, and neuropathy. Pt needs all meds refilled, will send. Colon screen is up to date. Pt does report excessive dribbling after urination, sometimes difficult to start a stream, will refer to urology and start tamsulosin PFSH Medical History Cognitive impairment DDD (degenerative disc disease), lumbar Restless legs syndrome (RLS) HTN (hypertension) Raynauds phenomenon Anxiety MDD (major depressive disorder) Surgical History (Reviewed 09/24/23 @ 17:[address] [facility] [place]) H/O colonoscopy Family History (Reviewed 09/24/23 @ 17:[address] [facility] [place]) Maternal Grandmother Throat cancer Social History (Reviewed 09/24/23 @ 17:[address] [facility] [place]) Household Members: None Housing: Apartment Do you presently have visiting nurse or other home services: No Patient Tobacco Use Status: Former Tobacco user e-Cigarette/Vaping Use: Never Used Second Hand Smoke Exposure: No service: No Current occupational status: retired Sexual orientation: Straight/Heterosexual Cognitive needs: No Hearing needs: No Vision needs: No Questionnaire PHQ-9 Over the last 2 weeks, how often have you been bothered by any of the following problems? 1. Little interest or pleasure in doing things: not at all 2. Feeling down, depressed, or hopeless: not at all 3. Trouble falling or staying asleep, or sleeping too much: not at all 4. Feeling tired or having little energy: not at all 5. Poor appetite or overeating: not at all 6. Feeling bad about yourself - or that you are a failure or have let yourself or your family down: not at all 7. Trouble concentrating on things, such as reading the newspaper or watching television: not at all 8. Moving or speaking so slowly that other people could have noticed. Or the opposite - being so fidgety or restless that you have been moving around a lot more than usual: not at all 9. Thoughts that you would be better off or of hurting yourself in some way: not at all Total score: 0 Depression Screening Interpretation: Negative Depression Screening Done: Yes 08932 - PHQ-9 Billing: Yes Source: Developed by Drs. Fred Johnson, Kristine De Jesus, Valentín Rivas and colleagues, with an educational marlena from [employer]. Thrive Questionnaire Date Thrive assessed: 09/24/23 What is your living situation today?: I choose not to answer this question Within the past 12 months, did the food you bought not last and you didn't have the money to get more?: I choose not to answer this question Within the past 12 months, did you worry whether your food would run out before you got money to buy more?: I choose not to answer this question Do you have trouble paying for medicines?: I choose not to answer this question Do you have trouble getting transportation to medical appointments?: I choose not to answer this question Do you have trouble paying your heating and electricity bill?: I choose not to answer this question Do you have trouble taking care of your child, family member or friend?: I choose not to answer this question Do you have trouble with day-to-day activities such as bathing, preparing meals, shopping, managing finances, etc.?: I choose not to answer this question Are you currently unemployed and looking for a job?: I choose not to answer this question Are you interested in more education?: I choose not to answer this question Currently or been in a relationship where the following occur: I choose not to answer this question THRIVE Score: 0 AUDIT C Alcohol Use Questionnaire (AUDIT-C) 1. How often do you have a drink containing alcohol?: Never 3. How often do you have six or more drinks on one occasion?: Never Total Score: 0 Score Reviewed/Action Taken: No FRANCISCO-7 AMB Questionnaire FRANCISCO-7 Date FRANCISCO - 7 assessed: 09/24/23 Feeling nervous, anxious, or on edge: 0 = Not at all Not being able to stop or control worryin = Not at all Worrying too much about different things: 0 = Not at all Trouble relaxin = Not at all Being so restless that it is hard to sit still: 0 = Not at all Becoming easily annoyed or irritable: 0 = Not at all Feeling afraid as if something awful might happen: 0 = Not at all Total FRANCISCO-7 score (0-4 normal; 5-9 mild; 10-14 moderate; 15-21 severe): 0 Source: Developed by Drs. Fred Johnson, Kristine De Jesus, Valentín Rivas and colleagues, with an educational marlena from [employer]. FRANCISCO-7 Assessment Billing FRANCISCO-7 Assessment Tool: FRANCISCO-7 Assessment 08363 Review of Systems Const Reports as per HPI Physical exam (Primary Care) Vital Signs: Last Vital Signs Pulse 70 09/24/23 16:10 BP 104/70 09/24/23 16:10 Pulse Ox 98 09/24/23 16:10 Oxygen Delivery Method Room Air 09/24/23 16:10 BMI result Body Mass Index 23.0 Tobacco/Smoking Status: Tobacco use Status Tobacco use date assessed 09/24/23 09/24/23 16:15 Patient Tobacco Use Status Former Tobacco user 09/24/23 16:08 Tobacco use type 05/15/23 15:31 e-Cigarette/Vaping Use Never Used 09/24/23 16:15 PHQ-9: PHQ-9 Score PHQ-9: Total score 0 09/24/23 17:51 Depression Screening Interpretation: Negative Thrive Assessment: Date of Thrive Assessment Date Thrive assessed 09/24/23 09/24/23 17:00 Currently or been in a relationship where the following occur: I choose not to answer this question Const General: cooperative Orientation/consciousness: patient oriented x3 Neuro General: patient oriented x3 Psych Appearance: grossly normal Mental Status: mental status grossly normal Speech and movement: Normal speech and movement present Affect: normal affect Attitude: cooperative Thought process: Normal thought process present Thought content: Normal thought content present Insight: Good insight present (Psych) Judgement: Good judgement present (Psych) Results AMB Hemoglobin A1c AMB Hemoglobin A1c 5.2 % Last Edit by GLORIA Flores on 09/24/23 17 :08 Results Reviewed Results Reviewed: Laboratory Last Values Hgb A1c (Clinic) 5.2 % (4.0-6.0) 09/24/23 17:08 Assessment and Plan Assessment & Plan (1) Hypertension: Code(s): I10 - Essential (primary) hypertension Plan: stable currently, labs ordered (2) Elevated fasting blood sugar: Code(s): R73.01 - Impaired fasting glucose Plan: A1C done in office, 5.2 (3) Screening for prostate cancer: Code(s): Z12.5 - Encounter for screening for malignant neoplasm of prostate (4) Weak urinary stream: Code(s): R39.12 - Poor urinary stream Plan: starting tamsulosin, referring to urology Plan The patient agreed to the use of a medical delivery driver for this encounter. Scribed for Daryl Rodriguez [facility]- by Cindi Davis medical delivery driver, on 09/24/2023 at 16:35 EST. Orders: Orders Complete Blood Count Auto Diff Today I10 - Essential (primary) hypertension UA CC w/rflx Micro + Cult Today I10 - Essential (primary) hypertension Lipid Panel Today I10 - Essential (primary) hypertension Prostate Specific Antigen Scr Today Z12.5 - Encounter for screening for malignant neoplasm of prostate Comprehensive [place]. Panel Fast Today I10 - Essential (primary) hypertension TSH reflex Free T4 Today I10 - Essential (primary) hypertension AMB Hemoglobin A1c Today Z13.9 - Encounter for screening, unspecified Referrals Urology Referral R39.12 - Poor urinary stream Medications: New tamsulosin 0.4 mg PO BEDTIME 90 caps 0RF Changed From sennosides-docusate sodium 8.6-50 mg (Senna Plus) 1 tab PO BID PRN 60 tabs 0RF no BM in 3days To sennosides-docusate sodium 8.6-50 mg (Senna Plus) 1 tab PO BID 90 days PRN 180 tabs 0RF no BM in 3days From clonazepam 1 mg PO BEDTIME 30 tabs 0RF To clonazepam 1 mg PO BEDTIME 30 days 30 tabs 2RF From clonidine HCl 0.2 mg PO BID PRN Anxiety To clonidine HCl 0.2 mg PO BID 90 days PRN 180 tabs 0RF Anxiety From trazodone 100 mg PO BEDTIME 30 tabs 0RF To trazodone 100 mg PO BEDTIME 90 days 90 tabs 0RF Refilled duloxetine 90 mg (3 x 30 mg) PO DAILY 90 caps 0RF losartan 50 mg See Protocol PO BEDTIME 90 tabs 0RF magnesium oxide 400 mg PO BIDPC 90 tabs 0RF pregabalin (Lyrica) 50 mg PO TID 270 caps 0RF Coding Level of Care Code New Pt Level 3 (57524) Diagnoses Hypertension I10 Elevated fasting blood sugar R73.01 Screening for prostate cancer Z12.5 Weak urinary stream R39.12 Additional Codes FRANCISCO-7 Assessment Billing - FRANCISCO-7 Assessment Tool: FRANCISCO-7 Assessment 17451 ([id number])
[2023-09-24 16:10] VITALS: BP 104/70; PULSE 70; O2SAT 98; BMI 23.0
== END 2023-09-24 17:20 | disposition home or self-care (01) ==
PROVIDERS: PCP Nurse Practitioner Family; Visit Provider Nurse Practitioner Family
DX: I10 Essential (primary) hypertension (principal); R73.01 Impaired fasting glucose; Z12.5 Encounter for screening for malignant neoplasm of prostate; R39.12 Poor urinary stream; Z13.9 Encounter for screening, unspecified
CPT/HCPCS: 83036; 99203; 99213

== ENCOUNTER 2024-01-19 10:36 | Outpatient (AMB) | payer MEDICARE, SELFPAY ==
--- NOTE | 2024-01-19 10:52 | MHC.OFFVIS ---
Intake Visit Reasons: weak urinary stream Intake Note: New patient is present for Weak Urinary Stream Med: Tamsulosin (Prescribed by PCP) Antibiotic Allergies: Sulfa Blood Thinner: None Recent A1C: 5.2 (09/24/23) No Recent PSA Patient states he was referred to Urology to have his Bladder checked out Patient also states he would like to discuss options to treat Erectile Dysfunction. Has not tried any medications as of yet. Patient does state he is prediabetic Denies any pain or discomfort while urinating Patient does state he has a history of Urinary Tract Infections Todays PVR: 0 Chemical Applicator Required: No Accompanied by: Self / Same As Patient Allergies sulfacetamide [From Sulfacet-R] Allergy (Severe, Verified 01/19/24 11:16) coma sulfur [From Sulfacet-R] Allergy (Severe, Verified 01/19/24 11:16) coma rosuvastatin [From Crestor] Allergy (Mild, Verified 01/19/24 11:16) Dizziness Medication List - Last Reconciled 01/19/24 by Chet Riojas MD acetaminophen 975 mg (3 x 325 mg) PO TID PRN clonazepam 1 mg PO BEDTIME 30 days clonidine HCl 0.2 mg PO BID PRN 90 days duloxetine 90 mg (3 x 30 mg) PO DAILY lidocaine 4% (Lidocaine Pain Relief) 1 patch See Protocol transdermal DAILY losartan 50 mg See Protocol PO BEDTIME magnesium oxide 400 mg PO BIDPC naproxen 250 mg PO BIDWM pregabalin (Lyrica) 50 mg PO TID sennosides-docusate sodium 8.6-50 mg (Senna Plus) 1 tab PO BID PRN 90 days tadalafil (Cialis) 5 mg PO DAILY tamsulosin 0.4 mg PO BEDTIME trazodone 100 mg PO BEDTIME 90 days HPI Comments Details: 73 year old male c/o's ED x1 year. International index erectile function questionnaire, IIEF-5, score 5. Currently on tamsulosin reviewed side effects including retrograde ejaculation. AUA symptom score 7. prostate exam- smooth mildly enlarged, WNL. Trial daily Cialis 5 mg, check hormone levels. [facility] Medical History Cognitive impairment DDD (degenerative disc disease), lumbar Restless legs syndrome (RLS) HTN (hypertension) Raynauds phenomenon Anxiety MDD (major depressive disorder) Surgical History H/O colonoscopy Family History Maternal Grandmother Throat cancer Social History Household Members: None Housing: Apartment Do you presently have visiting nurse or other home services: No Patient Tobacco Use Status: Former Tobacco user e-Cigarette/Vaping Use: Never Used Second Hand Smoke Exposure: No service: No Current occupational status: retired Sexual orientation: Straight/Heterosexual Cognitive needs: No Hearing needs: No Vision needs: No Review of Systems Const All systems reviewed & are unremarkable except as noted in HPI and below Reports no additional complaints Eyes Reports no additional complaints ENT Reports no additional complaints Card Reports no additional complaints Resp Reports no additional complaints GI Reports no additional complaints Reports as per HPI Musc Reports no additional complaints Skin/Breast Reports system reviewed and no additional complaints, except as documented Neuro Reports no additional complaints Psych Reports no additional complaints Endo Reports no additional complaints Sandro/Lymph Reports no additional complaints Aller/Immun Reports no additional complaints Physical Exam Const General: healthy appearing, no acute distress and well developed Orientation/consciousness: patient oriented x3 HEENT Head: Yes normocephalic and Yes atraumatic Eyes Conjunctivae: conjunctivae normal Neck Neck: Yes normal visual inspection Chest Chest palpation & inspection: normal inspection of the chest Resp Effort & Inspection: normal respiratory effort Cardio Jugular venous distension: no JVD GI Inspection: Yes normal to inspection Palpation (GI): Soft to palpation Other: Prostate Exam: Smooth mildly enlarged, findings within normal limits. Neuro General: patient oriented x3 Extrem General: No pedal edema Psych Appearance: grossly normal Affect: normal affect Office Procedures Post Void Residual Post Residual Void Post Void Residual (PVR): 0 19812-Pals Void Residual by ultrasound Results AMB Urinalysis, Automated UA Leukoctes 0 Tierra/uL Last Edit by QUYEN Higginbotham on 01/19/24 11:20 UA Nitrite Negative Last Edit by QUYEN Higginbotham on 01/19/24 11:20 UA Urobilinogen 0.2 mg/dL Last Edit by Yessenia Red, RMA on 01/19/24 11:20 UA Protein 15 mg/dL Last Edit by Yessenia Red, RMA on 01/19/24 11:20 UA pH 5.5 Last Edit by Yessenia Red, RMA on 01/19/24 11:20 UA Blood 10 Lucio/uL Last Edit by Yessenia Red, RMA on 01/19/24 11:20 UA Specific [place] 1.030 Last Edit by Yessenia Red, RMA on 01/19/24 11:20 UA Ketone Negative Last Edit by Yessenia Red, RMA on 01/19/24 11:20 UA Bilirubin 0 mg/dL Last Edit by Yessenia Red, RMA on 01/19/24 11:20 UA Glucose 0 mg/dL Last Edit by Yessenia Red, RMA on 01/19/24 11:20 Quality Reporting (2019) Benign Prostatic Hyperplasia ([facility] 771) AUA symptom score: 7 Quality of life due to urinary symptoms: If you were to spend the rest of your life with your urinary condition the way it is now, how would you feel about that?: Mostly Satisfied Results Reviewed Results Reviewed: Laboratory Last Values Urine pH (Auto) 5.5 01/19/24 11:15 Specific [place] (Auto) 1.030 01/19/24 11:15 Urine Protein (Auto) 15 mg/dL 01/19/24 11:15 Glucose (UA)(Auto) 0 mg/dL 01/19/24 11:15 Urine Ketones (Auto) Negative 01/19/24 11:15 Urine Blood (Auto) 10 Lucio/uL 01/19/24 11:15 Urine Nitrite (Auto) Negative 01/19/24 11:15 Urine Bilirubin (Auto) 0 mg/dL 01/19/24 11:15 Urine Urobilinogen (Auto) 0.2 mg/dL 01/19/24 11:15 Leukocyte Esterase (Auto) 0 Tierra/uL 01/19/24 11:15 Assessment & Plan Assessment & Plan (1) Screening for prostate cancer: Code(s): Z12.5 - Encounter for screening for malignant neoplasm of prostate Category: Medical (2) Erectile dysfunction: Code(s): N52.9 - Male erectile dysfunction, unspecified Category: Medical (3) Weak urinary stream: Code(s): R39.12 - Poor urinary stream Category: Medical Plan Blood work. See below Cialis 5 mg daily Orders: Orders PSA,Total (Free>4and<10) 01/19/24 Z12.5 - Encounter for screening for malignant neoplasm of prostate Follicle Stimulating Hormone 01/19/24 N52.9 - Male erectile dysfunction, unspecified Prolactin 01/19/24 N52.9 - Male erectile dysfunction, unspecified Sex Hormone Binding Globulin 01/19/24 N52.9 - Male erectile dysfunction, unspecified AMB Post Void Residual by ultrasound 01/19/24 R39.12 - Poor urinary stream AMB Urinalysis Automated 01/19/24 Z13.9 - Encounter for screening, unspecified Lutenizing Hormone 01/19/24 N52.9 - Male erectile dysfunction, unspecified Testosterone, Free/Total 01/19/24 N52.9 - Male erectile dysfunction, unspecified Medications: New tadalafil (Cialis) Please see [employer] coupon [id number] [facility] [id number] Member [id number] 5 mg PO DAILY 30 tabs 5RF Patient Instructions: The patient had an opportunity to ask questions regarding treatment plan. The patient expressed understanding and agreement with the above treatment plan. The patient is aware they should contact our office by phone for worsening of their current condition or the appearance of new symptoms. Compliance is encouraged with any medications and followup testing that is ordered. It is a privilege to be allowed the opportunity to participate in the urologic care of your patient. If you have any questions or concerns regarding treatment for the above conditions please do not hesitate to contact me. The office telephone contact is [phone]. This note is constructed in part using voice recognition software. While every effort has been made to ensure accuracy boilers inspector errors may have been included. Yours sincerely, Chet Riojas MD Coding Level of Care Code New Pt Level 4 (14342) Diagnoses Screening for prostate cancer Z12.5 Erectile dysfunction N52.9 Weak urinary stream R39.12 CPT Codes Post Residual Void - PVR CPT Code: 24873-Lttp Void Residual by ultrasound ([id number]) AUA Symptom Score AUA Incomplete emptying - It does not feel like I empty my bladder all the way.: 0 - Not at all Frequency - I have to go again less than two hours after I finish urinating.: 2 - Less than half the time Intermittency - I stop and start again several times when I urinate.: 1 - Less than 1 time in 5 Urgency - It is hard to wait when I have to urinate.: 3 - About half the time Weak stream - I have a weak urinary stream.: 0 - Not at all Straining - I have to push or strain to begin urination.: 0 - Not at all Nocturia - I get up to urinate after I go to bed until the time I get up in the morning.: 1 time AUA Symptom Score: 7 Quality of life due to urinary symptoms: If you were to spend the rest of your life with your urinary condition the way it is now, how would you feel about that?: Mostly Satisfied Source: Francisco MONCADA, Noman ZENDEJAS Jr, O'Dino MP, et al, and the Measurement Committee of the [employer] [place] [employer]. The [employer] [place] [employer] symptom index for benign prostatic hyperplasia. J Urol. 1992; 148: 6594-0921. Copyright 1992 [employer] [place] [employer]
== END 2024-01-19 11:54 | disposition home or self-care (01) ==
PROVIDERS: PCP Nurse Practitioner Family; Visit Provider Urology
DX: Z12.5 Encounter for screening for malignant neoplasm of prostate (principal); N52.9 Male erectile dysfunction, unspecified; R39.12 Poor urinary stream
CPT/HCPCS: 99204

== ENCOUNTER → 2024-01-19 10:36 | Outpatient (BNVA) | payer MEDICARE, SELFPAY | PROVIDERS: PCP Nurse Practitioner Family; Visit Provider Urology | DX: Z12.5 Encounter for screening for malignant neoplasm of prostate (principal); N52.9 Male erectile dysfunction, unspecified; R39.12 Poor urinary stream | CPT/HCPCS: 51798; 81003; 99202 ==

== ENCOUNTER 2024-04-07 14:19 | Outpatient (AMB) | payer MEDICARE, SELFPAY ==
--- NOTE | 2024-04-07 14:22 | A.OFFPC_ITS ---
Vital Signs 04/07/24 14:23 Height 5 ft 10 in Weight 175 lb 8 oz BMI 25.2 BP 108/66 Blood Pressure Location Rt brachial Position Sitting Pulse 81 Pulse Source Pulse Oximeter Pulse Oximetry (%) 97 Oxygen Delivery Method Room Air Intake Visit Reasons: Regular Visit Allergies sulfacetamide [From Sulfacet-R] Allergy (Severe, Verified 04/07/24 14:25) coma sulfur [From Sulfacet-R] Allergy (Severe, Verified 04/07/24 14:25) coma rosuvastatin [From Crestor] Allergy (Mild, Verified 04/07/24 14:25) Dizziness Tobacco use date assessed: 04/07/24 Fall risk assessment: No Falls in past year Dental Screening Dental Screen Date: 04/07/24 Did you have a dental visit in the last 12 months?: No Did you have a dental problem in the last 6 months where you did not have access to dental care?: No Was dental information given to patient?: Patient has dentist HPI Regular Visit HPI Details History of Present Illness The patient is a 73-year-old male presenting with chronic foot pain and gastrointestinal symptoms. He reports experiencing numbness, tingling, and burning sensations in his feet for the last two and a half years, which are associated with peripheral neuropathy. He has Azucena bunions on both feet and plantar fasciitis, which causes primarily morning pain and heel tightness. He has had previous consultations with a row boss approximately eight months ago, who recommended exercises, and he is currently on pregabalin (Lyrica) 50 mg three times a day, with moderate benefit. The patient denies receiving cortisone injections and has not undergone electromyography recently but indicates a prior diagnosis of neuropathy confirmed by neurology. Additionally, the patient reports irregular bowel movements over the last one and a half to two months, characterized by alternating diarrhea and semi-solid stools, with no accompanying pain, fever, or blood. Colon screen is up to date. Social History Review of Systems - Gastrointestinal: Reports alternating diarrhea and solid stools. Denies pain, fever, chills, or blood in stools. - Neurologic: Reports numbness, tingling , and burning in feet. - Musculoskeletal: Reports morning pain and heel tightness. Physical Exam - Musculoskeletal- Presence of bunions o bserved; no acute pain on examination. - Neurologic- Symmetrical foot tightness with no noted pain during palpation with toes dorsiflexed - Cardiovascular- Heart rate regular and lungs clear on auscultation. -no abd tenderness with palpation Results - Tests and Diagnostics: History of colo noscopy showing precancerous colon polyps. Plan - Neuropathy: Continue current dose of p regabalin (increase from 50mg tid to 75mg tid). Adjust dosing frequency if necessary based on tolerance and efficacy. - Plantar Fasciitis and Bunions: Referra l to physical therapy for targeted exercises to alleviate symptoms; continue use of orthotic inserts. - Gastrointestinal Symptoms: Initiate ov im-vdt-mnerzko loperamide Imodium) regimen as needed for diarrhea; dietary adjustments to increase fiber. Monitor symptoms and consider referral to gastroenterology if symptoms persist. - Hypertension: No current need for medi cation alteration; encourage fluid intake to maintain hydration. - Erectile Dysfunction: Follow-up any ur ology recommendations and complete pending labs. Patient was informed and verbally consented to the use of an ambient scribe for clinic note documentation during this visit. Discussion Notes I addressed the patient?s chronic neuropathy and plantar fasciitis, recommending enhancement of pregabalin therapy for neuropathy and physical therapy for plantar fasciitis to reduce pain and improve function. I elaborated on the possibility of adjusting pregabalin dosing frequency for better pain control, given tolerability. For GI concerns, I discussed the initiation of loperamide for symptomatic diarrhea control and advised dietary fiber addition to stabilize bowel habits. The patient expressed understanding of the management strategies and agreed to try these approaches. I clarified potential benefits and risks associated with the medications, along with lifestyle modifications for future follow-up. Upcoming lab assessments and their importance were reviewed to evaluate overall health status and medication impact. Patient Instructions - Increasing pregabalin (Lyrica) 50mg ti d to 75mg tid. If experiencing adverse effects, follow up for possible dose adjustment. - Schedule and attend physical therapy s essions for foot conditions. - Start using loperamide as needed for d iarrhea; adjust dosage as discussed. - Increase dietary fiber intake to regul ate bowel movement patterns. - Maintain adequate fluid intake daily. - Monitor symptoms of bowel changes or n europathic pain and report any significant changes. - Complete all recommended laboratory te sts after fasting. [facility] Medical History Cognitive impairment DDD (degenerative disc disease), lumbar Restless legs syndrome (RLS) HTN (hypertension) Raynauds phenomenon Anxiety MDD (major depressive disorder) Surgical History H/O colonoscopy Family History Maternal Grandmother Throat cancer Social History Household Members: None Housing: Apartment Do you presently have visiting nurse or other home services: No Patient Tobacco Use Status: Former Tobacco user e-Cigarette/Vaping Use: Never Used Second Hand Smoke Exposure: No service: No Current occupational status: retired Sexual orientation: Straight/Heterosexual Cognitive needs: No Hearing needs: No Vision needs: No Questionnaire PHQ-9 Over the last 2 weeks, how often have you been bothered by any of the following problems? 1. Little interest or pleasure in doing things: not at all 2. Feeling down, depressed, or hopeless: not at all 3. Trouble falling or staying asleep, or sleeping too much: not at all 4. Feeling tired or having little energy: not at all 5. Poor appetite or overeating: not at all 6. Feeling bad about yourself - or that you are a failure or have let yourself or your family down: not at all 7. Trouble concentrating on things, such as reading the newspaper or watching television: not at all 8. Moving or speaking so slowly that other people could have noticed. Or the opposite - being so fidgety or restless that you have been moving around a lot more than usual: not at all 9. Thoughts that you would be better off or of hurting yourself in some way: not at all Total score: 0 Depression Screening Interpretation: Negative Depression Screening Done: Yes 94056 - PHQ-9 Billing: Yes Source: Developed by Drs. Fred Johnson, Kristine De Jesus, Valentín Rivas and colleagues, with an educational marlena from [employer]. Thrive Questionnaire Date Thrive assessed: 04/07/24 I am a: Patient What is your living situation today?: I have a steady place to live Within the past 12 months, did the food you bought not last and you didn't have the money to get more?: Never true Within the past 12 months, did you worry whether your food would run out before you got money to buy more?: Never true Do you have trouble paying for medicines?: No Do you have trouble getting transportation to medical appointments?: No Do you have trouble paying your heating and electricity bill?: No Do you have trouble taking care of your child, family member or friend?: No Do you have trouble with day-to-day activities such as bathing, preparing meals, shopping, managing finances, etc.?: No Are you currently unemployed and looking for a job?: No Are you interested in more education?: No THRIVE Score: 0 AUDIT C Alcohol Use Questionnaire (AUDIT-C) 1. How often do you have a drink containing alcohol?: Never 3. How often do you have six or more drinks on one occasion?: Never Total Score: 0 Score Reviewed/Action Taken: No FRANCISCO-7 AMB Questionnaire FRANCISCO-7 Date FRANCISCO - 7 assessed: 04/07/24 Feeling nervous, anxious, or on edge: 0 = Not at all Not being able to stop or control worryin = Not at all Worrying too much about different things: 0 = Not at all Trouble relaxin = Not at all Being so restless that it is hard to sit still: 0 = Not at all Becoming easily annoyed or irritable: 0 = Not at all Feeling afraid as if something awful might happen: 0 = Not at all Total FRANCISCO-7 score (0-4 normal; 5-9 mild; 10-14 moderate; 15-21 severe): 0 Source: Developed by Drs. Fred Johnson, Kristine De Jesus, Valentín Rivas and colleagues, with an educational marlena from [employer]. FRANCISCO-7 Assessment Billing FRANCISCO-7 Assessment Tool: FRANCISCO-7 Assessment 58672 Physical exam (Primary Care) Vital Signs: Last Vital Signs Pulse 81 04/07/24 14:23 BP 108/66 04/07/24 14:23 Pulse Ox 97 04/07/24 14:23 Oxygen Delivery Method Room Air 04/07/24 14:23 BMI result Body Mass Index 25.2 Tobacco/Smoking Status: Tobacco use Status Tobacco use date assessed 04/07/24 04/07/24 14:29 Patient Tobacco Use Status Former Tobacco user 04/07/24 14:29 Tobacco use type 05/15/23 15:31 e-Cigarette/Vaping Use Never Used 04/07/24 14:29 PHQ-9: PHQ-9 Score PHQ-9: Total score 0 04/07/24 14:29 Depression Screening Interpretation: Negative Thrive Assessment: Date of Thrive Assessment Date Thrive assessed 04/07/24 04/07/24 14:29 Coding Level of Care Code Est Pt Level 3 (39328) Diagnoses Plantar fasciitis M72.2 Additional Codes FRANCISCO-7 Assessment Billing - FRANCISCO-7 Assessment Tool: FRANCISCO-7 Assessment 82004 ([id number]) PHQ-9 - 71776 - PHQ-9 Billing: Yes ([id number]) Assessment & Plan Assessment & Plan (1) Plantar fasciitis: Code(s): M72.2 - Plantar fascial fibromatosis Category: Medical Plan . Orders: Orders PT Evaluation and Treatment Today M72.2 - Plantar fascial fibromatosis Medications: Changed From pregabalin (Lyrica) 50 mg PO TID 270 caps 0RF To pregabalin 75 mg PO TID 90 days 270 caps 0RF
[2024-04-07 14:23] VITALS: BP 108/66; PULSE 81; O2SAT 97; BMI 25.2
== END 2024-04-07 15:09 | disposition home or self-care (01) ==
PROVIDERS: PCP Nurse Practitioner Family; Visit Provider Nurse Practitioner Family
DX: M72.2 Plantar fascial fibromatosis (principal)

== ENCOUNTER → 2024-04-07 14:19 | Outpatient (BNVA) | payer MEDICARE, SELFPAY | PROVIDERS: PCP Nurse Practitioner Family; Visit Provider Nurse Practitioner Family | DX: M72.2 Plantar fascial fibromatosis (principal) | CPT/HCPCS: 96127; 99212 ==

== ENCOUNTER 2024-11-11 10:11 | Outpatient (AMB) | payer MEDICARE, SELFPAY ==
--- OUTSIDE RECORDS SUMMARY | 2022-04-01 12:23 | XMS_ITS | Continuity of Care Document ---
Author Organization [facility] Address [address] [place] [address] Phone Care Team Providers Care Brim Setter Name Role Phone Brigette EMERSON, Shreyas Unavailable Unavailable Advance Directives Directive Yes / No Effective Date File Name No Information Encounters Encounter Description Practice Location Reason(s) For Visit Diagnoses Date Provider Providers Copied on Encounter [facility], [address], [place], [id number], [place] tel:[phone] [facility] No Information 2 Brigette Pritchett. [address], [address], [place], [address], [place]. tel:[phone] Referring Provider: [place], [address] [facility] [address] [facility] [address], [place], [address]. tel:[phone] Family History Family Member Type Diagnosis Age At Onset No Information Payers Payer name Insurance type Covered democrat ID Authoriza tion(s) No Information Social History Type Description Quantity Date Captured Comments Sex Male Smoking Status No Information Chief Complaint And Reason For Visit No Information Reason For Referral Reason For Referral No Information History Of Present Illness Encounter Date Complaint History Of Prese nt Illness No Information Functional Status Date Functional Assessmen t No Information Instructions Date Instruction Additional Infor mation No Information Assessments Type Assessment Date No Information Patient Care Teams Name Effective Dates (start - stop) Status Members No Information
[2024-11-11 10:14] VITALS: BP 120/74; PULSE 89; O2SAT 96; BMI 27.0
--- NOTE | 2024-11-11 10:14 | MHC.PC.OV ---
Vital Signs 11/11/24 10:14 Height 5 ft 10 in Weight 188 lb BMI 27.0 BP 120/74 Blood Pressure Location Lt brachial Position Sitting Pulse 89 Pulse Source Pulse Oximeter Pulse Oximetry (%) 96 Oxygen Delivery Method Room Air Intake Visit Reasons: 6m follow up, resched Intake Note: pt is here for 6 mon f.up [employer] Required: No Accompanied by: Self / Same As Patient Allergies sulfacetamide (From Sulfacet-R) Allergy (Severe, Verified 11/11/24 10:15) coma sulfur (From Sulfacet-R) Allergy (Severe, Verified 11/11/24 10:15) coma rosuvastatin (From Crestor) Allergy (Mild, Verified 11/11/24 10:15) Dizziness Medication List - Last Reconciled 11/11/24 by CAMILA Rachel- xpiibmh-hwdtowbewqqiv-ucccroco 250-250-65 mg (Excedrin Extra Strength) 1 tab PO Q4-6H PRN clonazepam 1 mg PO BEDTIME 30 days duloxetine 90 mg (3 x 30 mg) PO DAILY magnesium oxide 400 mg PO BID naproxen 250 mg PO BIDWM pregabalin 75 mg PO TID 90 days sennosides-docusate sodium 8.6-50 mg (Senna Plus) 1 tab PO BID PRN 90 days tamsulosin 0.4 mg PO BEDTIME trazodone 100 mg PO BEDTIME 90 days Tobacco use date assessed: 11/11/24 Fall risk assessment: No Falls in past year Last assessed Fall Risk: 11/11/24 Dental Screening Dental Screen Date: 11/11/24 Did you have a dental visit in the last 12 months?: Yes Did you have a dental problem in the last 6 months where you did not have access to dental care?: No Was dental information given to patient?: Patient has dentist HPI 6m follow up, resched HPI Details Chief Complaint The patient presents for follow-up of hypertension. History of Present Illness The patient is a 74-year-old male presenting with a follow-up visit for hypertension management. He denies experiencing any chest pain, shortness of breath, dizziness, blurred vision, or headaches, indicating stable control of his condition. The patient reports doing well overall, with no significant changes in his health status since the last visit. Social History Health Maintenance Review of Systems - Cardiovascular: Denies chest pain, dizziness - Respiratory: Denies shortness of breath - Neurological: Denies blurred vision, headaches Physical Exam General: Cooperative, healthy appearing, comfortable, no acute distress and well developed Orientation: Patient oriented x3 Limitations: No limitations Head: Normal to inspection Ears: Hearing grossly normal bilaterally Nose: Normal external nose present Face and sinus: Normal facial exam Eyes: Appearance normal, both eyes and all related structures Neck: Normal visual inspection and Yes full ROM Respiratory: Normal respiratory effort and able to speak in complete sentences. Clear to auscultation bilaterally Cardiovascular: Regular rate and rhythm. Normal S1 and S2, no carotid bruits noted GI: Normal to inspection. Soft to palpation and nontender Skin: No rashes or lesions noted Neuro: Patient oriented x3 Extremities: Normal to inspection Results Plan The patient will have laboratory tests conducted today as he is already fasting, which will help in monitoring his hypertension and overall health status. He is also encouraged to complete laboratory tests for his urologist and follow up with her for further management. [facility] Medical History Cognitive impairment DDD (degenerative disc disease), lumbar Restless legs syndrome (RLS) HTN (hypertension) Raynauds phenomenon Anxiety MDD (major depressive disorder) Surgical History H/O colonoscopy Family History Maternal Grandmother Throat cancer Social History Household Members: None Housing: Apartment Do you presently have visiting nurse or other home services: No Patient Tobacco Use Status: Former Tobacco user e-Cigarette/Vaping Use: Never Used Second Hand Smoke Exposure: No service: No Current occupational status: retired Sexual orientation: Straight/Heterosexual Cognitive needs: No Hearing needs: No Vision needs: No Questionnaire PHQ-9 Over the last 2 weeks, how often have you been bothered by any of the following problems? 1. Little interest or pleasure in doing things: not at all 2. Feeling down, depressed, or hopeless: not at all 3. Trouble falling or staying asleep, or sleeping too much: not at all 4. Feeling tired or having little energy: not at all 5. Poor appetite or overeating: not at all 6. Feeling bad about yourself - or that you are a failure or have let yourself or your family down: not at all 7. Trouble concentrating on things, such as reading the newspaper or watching television: not at all 8. Moving or speaking so slowly that other people could have noticed. Or the opposite - being so fidgety or restless that you have been moving around a lot more than usual: not at all 9. Thoughts that you would be better off or of hurting yourself in some way: not at all Total score: 0 Depression Screening Interpretation: Negative Depression Screening Done: Yes 86328 - PHQ-9 Billing: Yes Source: Developed by Drs. rFed Johnson, Kristine De Jesus, Valentín Rivas and colleagues, with an educational marlena from [employer]. Thrive Questionnaire Date Thrive assessed: 11/11/24 I am a: Patient What is your living situation today?: I have a steady place to live Within the past 12 months, did the food you bought not last and you didn't have the money to get more?: Never true Within the past 12 months, did you worry whether your food would run out before you got money to buy more?: Never true Do you have trouble paying for medicines?: No Do you have trouble getting transportation to medical appointments?: No Do you have trouble paying your heating and electricity bill?: No Do you have trouble taking care of your child, family member or friend?: No Do you have trouble with day-to-day activities such as bathing, preparing meals, shopping, managing finances, etc.?: No Are you currently unemployed and looking for a job?: No Are you interested in more education?: No Please select the resources that you would like help with: None Currently or been in a relationship where the following occur: No concerns reported THRIVE Score: 0 AUDIT C Alcohol Use Questionnaire (AUDIT-C) 1. How often do you have a drink containing alcohol?: Never 3. How often do you have six or more drinks on one occasion?: Never Total Score: 0 Score Reviewed/Action Taken: Yes FRANCISCO-7 AMB Questionnaire FRANCISCO-7 Date FRANCISCO - 7 assessed: 11/11/24 Feeling nervous, anxious, or on edge: 0 = Not at all Not being able to stop or control worryin = Not at all Worrying too much about different things: 0 = Not at all Trouble relaxin = Not at all Being so restless that it is hard to sit still: 0 = Not at all Becoming easily annoyed or irritable: 0 = Not at all Feeling afraid as if something awful might happen: 0 = Not at all Total FRANCISCO-7 score (0-4 normal; 5-9 mild; 10-14 moderate; 15-21 severe): 0 Source: Developed by Drs. Fred Johnson, Kristine De Jesus, Valentín Rivas and colleagues, with an educational marlena from [employer]. FRANCISCO-7 Assessment Billing FRANCISCO-7 Assessment Tool: FRANCISCO-7 Assessment 68737 Physical exam (Primary Care) Vital Signs: Last Vital Signs Pulse 89 11/11/24 10:14 BP 120/74 11/11/24 10:14 Pulse Ox 96 11/11/24 10:14 Oxygen Delivery Method Room Air 11/11/24 10:14 BMI result Body Mass Index 27.0 Tobacco/Smoking Status: Tobacco use Status Tobacco use date assessed 11/11/24 11/11/24 10:16 Patient Tobacco Use Status Former Tobacco user 11/11/24 10:16 Tobacco use type 05/15/23 15:31 e-Cigarette/Vaping Use Never Used 11/11/24 10:16 PHQ-9: PHQ-9 Score PHQ-9: Total score 0 11/11/24 10:16 Depression Screening Interpretation: Negative Thrive Assessment: Date of Thrive Assessment Date Thrive assessed 11/11/24 11/11/24 10:16 Currently or been in a relationship where the following occur: No concerns reported Coding Level of Care Code Est Pt Level 3 (13085) Diagnoses Hypertension I10 Additional Codes FRANCISCO-7 Assessment Billing - FRANCISCO-7 Assessment Tool: FRANCISCO-7 Assessment 80900 ([id number]) PHQ-9 - 74068 - PHQ-9 Billing: Yes ([id number]) Assessment & Plan Assessment & Plan (1) Hypertension: Code(s): I10 - Essential (primary) hypertension Category: Medical Plan . Orders: Orders Complete Blood Count Auto Diff Today I10 - Essential (primary) hypertension TSH reflex Free T4 Today I10 - Essential (primary) hypertension Comprehensive [place]. Panel Fast Today I10 - Essential (primary) hypertension UA CC w/rflx Micro + Cult Today I10 - Essential (primary) hypertension Lipid Panel Today I10 - Essential (primary) hypertension
--- OUTSIDE RECORDS SUMMARY | 2024-11-11 10:53 | XMS_ITS | Patient Health Record ---
Author Organization [facility] Address [address] [place] [address] Care Team Providers Care Investigation Division Sergeant Name Role Phone [place] Primary Care Provider Sharan Segal Unavailable [phone] Allergies Allergen (clinical drug ingredient) Drug/Non Drug Allergy documented on EMR Reaction Allergy Type Onset Date Status Substance with sulfonamide structure and antibacterial mechanism of action (substance) Sulfa Antibiotics convulsions Drug Allergy Active Reason For Referral No Information Medications Medication SIG (Take, Route, Frequency, Duration) Notes Start Date End Date Status Voltaren 1 % as directed Externally 04/29/2022 Not-Taking QUEtiapine Fumarate Active Gabapentin 100 MG as directed Active amLODIPine Besylate Not-Taking Metoprolol Succinate 25 MG 1 capsule Orally Once a day; Duration: 30 day(s) Not-Luis ing Physical Therapy . . . 2-3x/week; Durat ion: 3-4 weeks Active Sertraline HCl Not-T aking Valsartan 320 MG 1 tablet Orally Once a day; Duration: 30 day(s) Not-Luis ing Social History Tobacco Use: Social History Observation Description Date Details (start date - stop date) Never Smoker NA - NA Tobacco Use/Smoking Question Answer Notes Are you a: nonsmoker Additional Findings: Tobacco Non-User Current no n-smoker Alcohol Screen Question Answer Notes Did you have a drink containing alcohol in the p ast year? No Points 0 Interpretation Negative Tobacco use other than smoking: Question Answer Notes Are you an other tobacco user? No Problems Problem Type SNOMED Code ICD Code Onset Dates Problem Status W/U Status Risk Notes Problem Hallux valgus (acquired), right foot (M20.11) Active confirmed Problem Raynaud's disease (937232724) Raynaud's disease without gangrene (I73.00) Active confirmed Plan Of Treatment Pending Test Test Name Order Date X ray : Foot, left 3V 03/25/2022 X ray : Foot, right 3V 03/25/2022 Insurance Providers Payer Name Payer Address Payer Phone Subscriber Number Group Number Insured Name Patient Relationship to Insured Coverage Start Date Coverage End Date [employer] Medicare [id number] [address] [address] [place] [phone] [id number] Tao Mauricio Self - patient is the insured Medical (General) History Medical History History ICD Code Anxiety CAD (Cholesterol) High blood pressure Numbness Sciatica Warts Measles Mumps Chicken pox Surgical History Surgery Date(Month/Year) tonsillectomy 01/1956 Hospitalization History Reason Date(Month/Year) [facility] Medicine Hospital - 9 days eval uation 07/2022 Wing- felt like trouble sallowing 2 Wing- hands tingling anxiety 03/2022 Wing- cold/stiffness couldn't stand up i n Jassi Feet 1hur 03/2022
== END 2024-11-11 10:45 | disposition home or self-care (01) ==
LOC: HO.HMCC 10:12
PROVIDERS: PCP Nurse Practitioner Family; Visit Provider Nurse Practitioner Family
DX: I10 Essential (primary) hypertension (principal)

== ENCOUNTER 2024-11-11 10:11 | Outpatient (REF) | payer MEDICARE, SELFPAY ==
[2024-11-11 13:21] LABS: MANUAL DIFF FLAG NO
[2024-11-11 13:29] LABS: Hematocrit 46.8 % (42.0-52.0); Hemoglobin 15.6 g/dl (14.0-18.0); Imm Gran Abs Auto 0.04 X10*3/uL (0.00-0.03); Imm Gran Pct Auto 0.4 % (0.0-0.4); Lymphocytes Absolute Auto 2.0 X10*3/uL (1.2-4.9); Mean Corpuscular HGB Conc 33.3 g/dl (31.0-36.0); Mean Corpuscular Hemoglobin 30.9 pg (27.0-33.0); Mean Corpuscular Volume 92.7 fL (80.0-98.0); NRBC Abs Auto 0.000 X10*3/uL (0.0-0.012); NRBC Pct Auto 0.0 /100WBC (0.0-0.2); Platelet Count 199 X10*3/uL (160-400); Red Blood Count 5.05 X10*6/uL (4.60-5.80); White Blood Count 10.4 X10*3/uL (4.8-10.8)
[2024-11-11 14:04] LABS: Alanine Aminotransferase 26 U/L (0-40); Albumin Level 4.0 g/dL (3.5-5.0); Alkaline Phosphatase 102 U/L (39-117); Anion Gap 10 (12-20); Aspartate Amino Transferase 29 U/L (5-37); Blood Urea Nitrogen 10 mg/dL (9-16); Calcium 8.9 mg/dL (8.4-10.2); Carbon Dioxide 28 mmol/L (22-29); Chloride 105 mmol/L (96-108); Cholesterol 178 mg/dL (<200); Estimated Glomerular Filt Rate > 60; HDL Cholesterol 37 mg/dL (>40); Potassium 3.7 mmol/L (3.3-5.1); Sodium 139 mmol/L (135-145); Total Protein 6.7 g/dL (6.5-8.0); Triglycerides 123 mg/dL (<150)
[2024-11-11 16:20] LABS: Appearance Urine Clear; Glucose Urine UA Negative (Negative); PH 6.5 (5.0-9.0); Specific Gravity - Urine 1.020 (1.005-1.025)
== END 2024-11-11 10:12 | disposition home or self-care (01) ==
LOC: HO.HMGCLDS 10:11
PROVIDERS: PCP Nurse Practitioner Family; Referring Provider Urology; Visit Provider Nurse Practitioner Family
DX: I10 Essential (primary) hypertension (principal); Z13.31 Encounter for screening for depression; Z13.39 Encounter for screening examination for other mental health and behavioral disorders
CPT/HCPCS: 36415; 80053; 80061; 81003; 84443; 85025; 96127; 99212